=== PATIENT | female | born 1955 | race Two or more races ===

== ENCOUNTER 2024-09-09 19:17 | Inpatient (IN) | payer MEDICARE, BC, SELFPAY ==
[2024-09-09 19:18] VITALS: BMI 24.5
[2024-09-09 20:01] VITALS: BP 119/83; PULSE 110; RESP 18; TEMP 36.5; O2SAT 94
--- NOTE | 2024-09-09 20:22 | XR_ITS ---
Examination: PA lateral chest 2 views TECHNIQUE: Upright PA and lateral chest 2 views Standing time: September 09, 20242028 hours Comparison November 24, 2023 INDICATIONS: Coughing beginning 2 days ago. FINDINGS: Moderate enlargement cardiac contour Early heart failure Prominent vascular congestion with early septal edema at the lung bases No lobar pneumonia IMPRESSION: Early CHF
--- NOTE | 2024-09-09 20:22 | EKG_ITS ---
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
--- NOTE | 2024-09-09 20:23 | PD.EDRME ---
Rapid Medical Screening Exam E Arrival date/time: 09/09/24 19:17 This is a 69-year-old female that comes into the emergency room with complaints of shortness of breath, dizziness, chest pain for the past couple days. Patient states she became concerned because she also had a headache today that radiated down her neck. Patient was in bed most of the day but when she would try to get up out of bed she became very dizzy and felt like she was get a pass out. Patient has a history of end-stage renal disease on dialysis. Patient also has a history of high blood pressure and dyslipidemia. I have greeted and performed a focused initial assessment of this patient. Initial appropriate labs ordered at this time. A comprehensive ED assessment and evaluation of the patient and analysis of all test and completion of medical decision making process will be conducted by additional ED provider. Chief Complaint: Shortness of Breath/Dyspnea Time Seen by Provider: 09/09/24 20:08 Vital signs: Vital Signs Temperature 97.7 F 09/09/24 20:01 Pulse Rate 110 H 09/09/24 20:01 Respiratory Rate 18 09/09/24 20:01 Blood Pressure 119/83 09/09/24 20:01 Pulse Oximetry (%) 94 L 09/09/24 20:01 Oxygen Delivery Method Room Air 09/09/24 20:01
[2024-09-09 20:55] LABS: Basophils % (Auto) 1 % (0-2.5); Eosinophils # (Auto) 0.3 Thou/mm3 (0.0-0.5); Eosinophils % (Auto) 6 % (0-10); Hematocrit 31.8 % (36.0-46.0); Hemoglobin 10.2 g/dL (12.0-16.0); Immature Granulocytes % (Auto) 0 % (0-0); Immature Granulocytes Auto 0.01 Thou/mm3 (0.00-0.00); Lymphocytes # (Auto) 0.7 Thou/mm3 (1.0-4.8); Lymphocytes % (Auto) 16 % (10-50); Mean Corpuscular HGB Conc 32.1 g/dl (31.0-37.0); Mean Corpuscular Hemoglobin 33.1 pg (25.0-35.0); Mean Corpuscular Volume 103 fL (80-100); Monocytes # (Auto) 0.6 Thou/mm3 (0.0-0.8); Monocytes % (Auto) 15 % (0-12); Neutrophils # (Auto) 2.7 Thou/mm3 (1.8-7.7); Neutrophils % (Auto) 63 % (37-80); Nucleated Red Blood Cell % 0 /100 WBC (0); Platelet Count 97 Thou/mm3 (140-440); Red Blood Count 3.08 Miln/mm3 (4.00-5.20); White Blood Count 4.3 Thou/mm3 (3.6-11.0)
[2024-09-09 21:12] LABS: Alanine Aminotransferase 10 U/L (10-49); Albumin, Serum 4.4 gm/dL (3.4-4.8); Albumin/Globulin Ratio 1.5 (1.2-2.2); Alkaline Phosphatase 87 U/L (46-116); Anion Gap 14 (7-16); Aspartate Amino Transferase 29 U/L (0-34); BUN/Creatinine Ratio 6 Ratio (12-20); Bilirubin,Total 0.3 mg/dL (0.3-1.2); Blood Urea Nitrogen 52 mg/dL (9-23); Calcium 9.7 mg/dL (8.3-10.6); Calcium (Corrected) 9.7 mg/dL (8.5-10.1); Carbon Dioxide 27.1 mMol/L (20.0-31.0); Chloride 94 mMol/L (98-107); Creatinine (Component) 8.7 mg/dL (0.6-1.3); Estimated Creatinine Clearance 5.1 mL/min (>60); Globulin 2.9 gm/dL (2.3-3.5); Glucose 96 mg/dL (74-106); Osmolality,Calculated 284 (275-295); Potassium 4.9 mMol/L (3.4-5.1); Sodium 135 mMol/L (136-145); Total Protein 7.3 gm/dL (5.7-8.2); eGFR 4 See Note
[2024-09-09 21:16] LABS: B-Type Natriuretic Peptide 1286 pg/mL (0-100)
[2024-09-09 23:40] VITALS: BP 138/100; PULSE 124; RESP 22; O2SAT 86
--- NOTE | 2024-09-09 23:44 | EDNOTE_ITS ---
ED SOB =RME/HPI General Chief Complaint: Shortness of Breath/Dyspnea Stated Complaint: SOB, Pain to neck, dizziness Time Seen by Provider: 09/09/24 20:08 Source: patient and family Arrival date/time: 09/09/24 19:17 Mode of arrival: ambulatory Limitations: no limitations RME / HPI RME / HPI Narrative: 09/09/24 19:17 This is a 69-year-old female that comes into the emergency room with complaints of shortness of breath, dizziness, chest pain for the past couple days. Patient states she became concerned because she also had a headache today that radiated down her neck. Patient was in bed most of the day but when she would try to get up out of bed she became very dizzy and felt like she was get a pass out. Patient has a history of end-stage renal disease on dialysis. Patient also has a history of high blood pressure and dyslipidemia. I have greeted and performed a focused initial assessment of this patient. Initial appropriate labs ordered at this time. A comprehensive ED assessment and evaluation of the patient and analysis of all test and completion of medical decision making process will be conducted by additional ED provider. DR SCHWARTZ MAIN ED EVALUATION: The patient is a 70-year-old female with end-stage renal disease (ESRD) on hemodialysis (HD) who presents with complaints of congestion, which began on Tuesday. She reports experiencing a dry cough without phlegm, a burning sensation in both shoulders and the neck, and a sensation of pressure in her head. Additionally, she notes dizziness, particularly when standing, but denies any loss of consciousness (LOC). She denies fever or night sweats, but does report having chills. The patient sought medical care on Tuesday, at which time she was prescribed an allergy pill, nasal spray, and an inhaler. Her symptoms, including the congestion, cough, burning sensation, and dizziness, have persisted since that visit. She is followed by prospecting driller Dr. Leiva for her ESRD and by Dr. Herr for her regular care. She also has a pipe bowl paint trimmer, Dr. Chávez, for heart- related issues, though she does not specifically mention any recent cardiac sym ptoms. Related Data Home Medications ?Medication ?Instructions ?Recorded ?Confirmed calcium acetate 667 mg tablet 1,334 mg PO TIDWM 12/01/20 11/24/23 vitamin B complex-vitamin C-folic 1 tab PO QDAY 08/03/21 11/24/23 acid 0.8 mg tablet (Leonor-Shana) nicardipine 20 mg capsule 1 cap PO TID 04/09/22 11/24/23 hydralazine 50 mg tablet 1 tab PO TID 04/12/22 11/24/23 carvedilol 6.25 mg tablet (Coreg) 6.25 mg PO BID 08/01/23 11/24/23 Allergies Allergy/AdvReac Type Severity Reaction Status Date / Time hydrocodone [From Vicodin] Allergy Severe Hives Verified 07/31/23 15:25 Review of Systems Review of Systems Systems Reviewed: All systems reviewed, normal except as documented Past Medical History Past Medical History NEUROLOGIC: Negative Neurological Disorders, Cerebrovascular Accident, Transient Ischemic Attacks (TIA), Dementia, Alzheimer's Disease, Parkinson's Disease, Brain Tumor, Meningitis, Seizures, Epilepsy, Multiple Sclerosis, Cerebral Palsy, Amyotrophic Lateral Sclerosis (ALS/Arline Gehrig's), Guillain-Frederick Syndrome, Spina Bifida, Paralysis, Peripheral Neuropathy, Turner's Palsy, Subdural Hematoma, Migraine, Head Trauma, Spinal Cord Injury or Traumatic Brain Injury CARDIAC: Positive Cardiac Disorders, Hypercholesterolemia, Hypertension and Hypotension; Negative Myocardial Infarction, Cardiac Arrhythmia, Atrial Fibrillation, Angina, Heart Murmur, Coronary Artery Disease, Atherosclerotic Heart Disease, Peripheral Vascular Disease, Aneurysm, Congestive Heart Failure, Congenital Heart Disease, Valvular Heart Disease, Rheumatic Fever, Cardiomyopathy, Edema, Pericarditis, Cellulitis, Deep Vein Thrombosis or Varicose Veins RESPIRATORY: Negative Chronic Obstructive Pulmonary Disease (COPD), Asthma, Bronchitis, Emphysema, Pneumonia, Pulmonary Fibrosis, Cystic Fibrosis, Tuberculosis, Pulmonary Embolism, Pulmonary Edema or Sleep Apnea GASTROINTESTINAL: Negative Gastrointestinal Disorders, Cirrhosis, Pancreatitis, Celiac Disease, Gall Bladder Disease, Gastrointestinal Bleed, Esophageal Varices, Castelan's Esophagus, Colitis, Ulcerative Colitis, Diverticulitis, Diverticulosis, Ulcer, Irritable Bowel, Crohn's Disease, Obstructive Bowel, Hiat al Hernia, Hemorrhoids, Gastroesophageal Reflux Disease or Obesity GENITOURINARY: Positive Genitourinary Disorders, Renal Disease and Dialysis; Negative Kidney Stones, Polycystic Kidney Disease, Neurogenic Bladder, Inguinal Hernia or Benign Prostatic Hyperplasia REPRODUCTIVE: Positive Previous Pregnancies; Negative Endometriosis, Genital Herpes, Gonorrhea, Pelvic Inflammatory Disease, Syphilis or Uterine Prolapse MUSCULOSKELETAL: Positive Musculoskeletal Disorders and Gout; Negative Muscular Dystrophy, Myasthenia Gravis, Marfan's Syndrome, Arthritis, Rheumatoid Arthritis, Osteoporosis, Degenerative Disk Disease, Scoliosis, Carpal Tunnel Syndrome, Fibromyalgia, Fractures, Degenerative Joint Disease, Osteomyelitis or Poliovirus ENT: Negative Cataracts, Glaucoma, Blind, Retinal Detachment, Macular Degeneration, Ear Infection, Deafness, Head Trauma or Eye Prosthesis ENDOCRINE: Negative Endocrine Disorders, Diabetes Mellitus Type 1, Diabetes Mellitus Type 2, Hypoglycemia, [place]'s Syndrome, Shahid's Disease, Hyperthyroidism, Hypothyroidism, Parathyroid Disease, Pituitary Disease, Systemic Lupus Erythematosus, Syndrome of Inappropriate Antidiuretic Hormone (SIADH), Adrenal Disease or Graves' Disease HEMATOLOGIC: Positive Anemia; Negative Blood Disorders, Leukemia, Hemophilia, Thalassemia, Sickle Cell Disease or Clotting Problems PSYCHO/SOCIAL: Negative Psychiatric Problems, Schizophrenia, Recreational Drug Use, Bipolar Disorder, Depression, Anxiety, Behavior Problems, Self-Mutilation, Attention Deficit Disorder, Attention Deficit Hyperactivity Disorder, Depression, Post Traumatic Stress Disorder or Eating Disorder OTHER HISTORY: Positive Hospitalization and Blood Transfusions; Negative Autoimmune Disease, Autism, Falls, Blood Transfusion Reaction, Anesthesia Reactions, Organ Transplant or Cancer Family History FAMILY HISTORY: Positive Family Cardiac Disorders; Negative Family Psychiatric Problems, Family Respiratory Disorders, Family Gastrointestinal Problems, Family Cancer, Family Surgery or Family Anesthesia Reaction Surgical History SURGICAL: Positive Pacemaker, Eye Surgery and Section; Negative Cardiac Surgery, Open Heart Surgery, Coronary Artery Bypass Graft, Valve Replacement, Vascular Surgery, Coronary Stent, Cardiac Catheterization, Angiogram, Auto Implanted Cardiovert Defib, Carotid Endarterectomy, Endocrine Surgery, Thyroidectomy, Ear Surgery, Tympanostomy Tube, Nose Surgery, Oral Surgery, Tonsillectomy, Adenoidectomy, Cochlear Implant, Corneal Transplant, Throat Surgery, Abdominal Surgery, Tracheostomy, Gastric Bypass Surgery, Gastrostomy, Bowel Surgery, Nephrectomy, Transurethral Resection, Joint Replacement, Amputation, Open Reduction Internal Fixation, Arthroscopy, Neurologic Surgery, Brain Shunt, Mastectomy, Lumpectomy, Hysterectomy, Tubal Ligation or Organ Transplant Social History SMOKING STATUS: Never smoker SUBSTANCE USE: does not use ED Exam Narrative Physical exam: GENERAL APPEARANCE: alert and oriented x 4, well-developed, well-nourished, no acute distress VITALS: All vitals were reviewed and the pulse ox is 95% on 6 L/min, which is normal according to my interpretation. HEENT: Normocephalic, atraumatic; pupils equal, round, reactive to light; EOMI; mucous membranes pink, moist; oropharynx clear NECK: Supple LUNGS: CTABL; no wheezes, no rales, no rhonchi HEART: Irregularly irregular rate, tachycardic; normal S1, S2; no murmurs ABDOMEN: non distended; normal BS; soft, no tenderness, no guarding, no rebound; no masses, no organomegaly, no hernia BACK: no CVA tenderness EXTREMITIES: atraumatic; no edema NEUROLOGIC: awake; alert and oriented x4; cranial nerves II-XII grossly intact; no focal sensory or motor deficits PSYCHIATRIC: appropriate mood and affect SKIN: warm, dry, normal color; no rashes General Limitations: Present no limitations Course Course Course Narrative: CXR is ordered for determining etiology of shortness of breath. An EKG, personally interpreted by me, revealed atrial fibrillation with rapid ventricular response (RVR) at a heart rate of 143 bpm, Q waves in leads V1 and V2, and T wave inversions in leads II and III. Comparison with prior EKGs dated 04/09/2024 showed sinus bradycardia, while EKGs from 11/28/2023 and 11/24/2023 demonstrated sinus arrhythmia without evidence of atrial fibrillation. The findings suggest new-onset atrial fibrillation. At 0001, orthostatic vital signs obtained, the patient was observed sitting on the edge of the bed with an oxygen saturation of 83% and a heart rate in the 170s. Oxygen support was increased, and the patient was placed on high-flow oxygen. The patient was started on Cardizem, with a blood pressure of 159/100 mmHg. At 0057, Following administration, the heart rate decreased from the 170s to 97 bpm. A repeat EKG, personally interpreted by me, showed sinus tachycardia at a rate of 96 bpm, Q waves in leads V1 and V2, and mild ST depressions in leads II, III, and IV. The patient successfully converted with Cardizem. Quality Measures none Orders Category Date Time Status Bedside COVID-19 Antigen Test NOW Care 09/09/24 20:22 Active Bedside Influenza A&B Antigen Test NOW Care 09/09/24 20:22 Completed EKG (ED ONLY) *Do not use* NOW Care 09/09/24 20:22 Completed EKG (ED ONLY) *Do not use* NOW Care 09/10/24 00:19 Completed EKG (ED ONLY) *Do not use* NOW Care 09/10/24 00:43 Active Insert IV NOW Care 09/10/24 00:25 Active EKG (ED Only) Stat Exams 09/09/24 20:22 Draft EKG (ED Only) Stat Exams 09/10/24 00:18 Ordered EKG (ED Only) Stat Exams 09/10/24 00:43 Ordered XR chest 2V Stat Exams 09/09/24 20:22 Completed BNP [B-Type Natriuretic Peptide] Stat Lab 09/09/24 20:34 Completed CBC Stat Lab 09/09/24 20:34 Completed Comprehensive Metabolic Panel Stat Lab 09/09/24 20:34 Completed Troponin I Stat Lab 09/09/24 20:34 Completed Troponin I Stat Lab 09/10/24 00:37 Received Urinalysis, C/S if Indicated Stat Lab 09/09/24 20:23 Ordered DILTIAZEM in D5W 125 MG Med 09/10/24 00:25 Active 125 mg in 125 ml IV 5 mg/hr Diltiazem Inj [Cardizem Inj] Med 09/10/24 00:23 Discontinued 15 mg IV X1 ONE Vital Signs Vital signs: Vital Signs Temperature 97.7 F 09/09/24 20:01 Pulse Rate 110 H 09/09/24 20:01 Respiratory Rate 18 09/09/24 20:01 Blood Pressure 119/83 09/09/24 20:01 Pulse Oximetry (%) 94 L 09/09/24 20:01 Oxygen Delivery Method Room Air 09/09/24 20:01 Shortness of Breath / Dyspnea MDM Narrative MDM Narrative:: Scribe Attestation: Ailin Degroot am scribing for and in the presence of Dr. Schwartz. Provider Notation: Although this document has been carefully reviewed, there may still be some phonetic and other typographical errors. These errors are purely grammatical due to imperfections in the software program and should not be construed in any way to compromise the substance of the patient's medical care during this visit. Patient data External records reviewed:: [facility] previous records Clinical information provided by:: patient Social determinants that could affect healthcare access:: none Patient has the following chronic illnesses:: See PMH How is presenting disease/condition affected by chronic disease/condition?: uneffected by Evaluation data The following diagnostics were reviewed and interpreted by me:: lab results, radiology exam(s) and EKG tracing(s) Lab and/or radiology exams considered but not ordered:: none Interpretation Summary: I personally reviewed the radiology data and agree with the radiologist's interpretation. Examination: PA lateral chest 2 views TECHNIQUE: Upright PA and lateral chest 2 views Standing time: September 09, 20242028 hours Comparison November 24, 2023 INDICATIONS: Coughing beginning 2 days ago. FINDINGS: Moderate enlargement cardiac contour Early heart failure Prominent vascular congestion with early septal edema at the lung bases No lobar pneumonia IMPRESSION: Early CHF Dictated By: Billy Petersen MD Medications / Prescriptions Medications or Prescriptions considered but not ordered:: none Medication administrations:: Medication Administration History Diltiazem HCl (Diltiazem In D5w 125 Mg) 125 mg in 125 mls @ 5 mls/hr IV .Q24H OLEG Stop: 10/10/24 00:24 Discontinued Medications Diltiazem HCl (Diltiazem Inj 5 Mg/Ml Vial 5 Ml) 15 mg IV X1 ONE Stop: 09/10/24 00:24 Last Admin: 09/10/24 00:30 Dose: 15 mg Documented By: LB as above, if any Consultations Consultation(s) initiated? (list below): Yes Consultation #1 (Physician, Specialty, Details): Hospitalist made aware of the patient?s HPI, PMHx, lab and/or radiology results. Treatment plan was discussed. Accepts patient for admission. Time: 00:57 Diagnosis Shortness of Breath Differential Diagnosis: acute exacerbation of chronic obstructive airways disease, congestive heart failure, asthma with exacerbation and pulmonary embolism Most likely diagnosis given after review of the tests above:: Atrial fibrillation with RVR Admission Indicated Admission indicated?: indicated Admission Request Was there a request for admission?: Yes Admission Attestation Admission request attestation: Discussed case with [] from Hospitalist service regarding admission. Discussed patients ED course, exam findings, labs, and radiology results. The Hospitalist [agrees,declines] to accept the patient for admission. Disposition Plan Disposition Plan: Admit Critical Care Time Critical Care Time Critical Care Time: Yes Total Critical Care Time (min.): 35 Attestation: The high probability of sudden, clinically significant deterioration in the patient?s condition required the highest level of my preparedness to intervene urgently. ? The services I provided to this patient were to treat and/or prevent clinically significant deterioration. Services included the following: chart data review, reviewing nursing notes and/or old charts, documentation time, home sales consultant collaboration regarding findings and treatment options, medication orders and management, direct patient care, vital sign assessments and ordering, interpreting and reviewing diagnostic studies and lab tests. ? Aggregate critical care time includes only time during which I was engaged in work directly related to the patient?s care, as described above, whether at bedside or elsewhere in the Emergency Department. It did not include time spent performing other reported procedures or the services of residents, students, nurses or physician assistants. Discharge Plan Plan Patient Disposition: Admit Acute Care w/in Hospital Disposition Comment: Telemetry Prescriptions/Referrals Prescriptions/Med Rec: No Action Leonor-Shana 0.8 mg tablet 1 tab PO QDAY Patient Comments: TAKE 1 TABLET BY MOUTH DAILY calcium acetate 667 mg Tablet 1,334 mg PO TIDWM nicardipine 20 mg capsule 1 cap PO TID hydralazine 50 mg tablet 1 tab PO TID Patient Comments: TAKE 1 TABLET BY MOUTH THREE TIMES DAILY carvedilol [Coreg] 6.25 mg Tablet 6.25 mg PO BID Rx Instructions: must administer with a meal/food Referrals: Indy Herr MD [Primary Care Provider] - In 1 week Problem List Clinical Impression: Atrial fibrillation with RVR Patient/Caregiver Discharge Instructions Print Language: Kuwaiti Stand Alone Forms: [employer] Award Info., Patient Portal Info Letter
[2024-09-09 23:45] VITALS: O2SAT 94
[2024-09-10] VITALS (36 sets, daily range): BP systolic 112–173; BP diastolic 67–100; PULSE 85–133; RESP 16–24; TEMP 36.1–37; O2SAT 2–99; BMI 24.5
--- NOTE | 2024-09-10 00:09 | PC.NURSE ---
Dr. Schwartz in room seeing pt.
[2024-09-10] MEDS: DILTIAZEM INJ 5 MG/ML VIAL 5 ML 15 MG IV (00:30)
--- NOTE | 2024-09-10 00:55 | PC.NURSE ---
Cardizem gtt not available, nursg sup informed by Benny RN chg nurse.
--- NOTE | 2024-09-10 01:04 | PC.NURSE ---
HR 96, feels better, less SOB, and less chest discomfort per pt.
--- NOTE | 2024-09-10 01:33 | PC.NURSE ---
HBS in room seeing pt. Dtr at bedside.
--- NOTE | 2024-09-10 02:23 | ECHO_ITS ---
Transthoracic Echo Report Ht (in): 62 Wt (lb): 134 Exam Location: Echo Lab Status: Emergency Legislative Analyst: Ofe Fitzpatrick Indications: Procedure Performed: BP: 119 / 83 HR: MEASUREMENTS (Male / Female) Normal Values 2D ECHO LV Diastolic Diameter PLAX 5.1 cm 4.2 - 5.9 / 3.9 - 5.3 cm LV Systolic Diameter PLAX 3.3 cm IVS Diastolic Thickness 1.0 cm 0.6 - 1.0 / 0.6 - 0.9 cm LVPW Diastolic Thickness 1.1 cm 0.6 - 1.0 / 0.6 - 0.9 cm LV Relative Wall Thickness 0.4 LVOT Diameter 1.8 cm LA Volume Index 70.9 cm?/m? 16 - 28 cm?/m? M-MODE Aortic Root Diameter MM 2.3 cm LA Systolic Diameter MM 5.3 cm LA Ao Ratio MM 2.3 AV Cusp Separation MM 1.3 cm DOPPLER AV Peak Velocity 127.0 cm/s AV Peak Gradient 6.5 mmHg AV Mean Gradient 3.0 mmHg AV Velocity Time Integral 22.9 cm LVOT Peak Velocity 111.0 cm/s LVOT Peak Gradient 4.9 mmHg LVOT Velocity Time Integral 20.2 cm AV Area Cont Eq vti 2.2 cm? AV Area Cont Eq pk 2.2 cm? MV Peak Velocity 160.5 cm/s MV Peak Gradient 10.3 mmHg MV Mean Velocity 93.9 cm/s MV Mean Gradient 4.5 mmHg MV Area PHT 7.1 cm? MR Peak Velocity 595.5 cm/s MR Peak Gradient 141.8 mmHg Mitral E Point Velocity 127.0 cm/s Mitral A Point Velocity 78.1 cm/s Mitral E to A Ratio 1.6 LV E' Lateral Velocity 7.1 cm/s Mitral E to LV E' Lateral Ratio 18.0 LV E' Septal Velocity 7.6 cm/s Mitral E to LV E' Septal Ratio 16.7 TR Peak Velocity 301.0 cm/s TR Peak Gradient 36.2 mmHg PV Peak Velocity 70.6 cm/s PV Peak Gradient 2.0 mmHg FINDINGS Left Ventricle Normal left ventricular size and systolic function with no obvious regional wall motion abnormalities. Mild LVH. Normal left ventricular diastolic filling pattern for age. The ejection fraction is visually estimated at 65 %. Right Ventricle The right ventricle is normal in size and systolic function. The estimated right ventricular systolic pressure, 51 mmHg. RAP 15. Left Atrium The left atrial cavity size is severely increased. Right Atrium The right atrial cavity size is severely increased. Atrial Septum The interatrial septum appears normal with no evidence of a shunt. Aorta The aorta is normal by two-dimensional, color flow and Doppler interrogation. Mitral Valve Mild MAC. Severe mitral regurgitation. Mild MS. Aortic Valve The aortic valve is trileaflet and normal by two-dimensional, color flow and Doppler interrogation. There is no significant aortic valve regurgitation. Tricuspid Valve There is mild to moderate tricuspid valve regurgitation. Pulmonic Valve The pulmonic valve is not well visualized. There is no significant pulmonic valve regurgitation. Vessels Dilated inferior vena cava. Pericardium The pericardium is normal by two-dimensional imaging. There is no significant pericardial effusion. CONCLUSIONS Indication: New onset afib with RVR Normal LV size and function. Mild LVH. Estimated EF 60-65 %. Dilated RV with normal function. Estimated RVSP, 51 mmHg. RAP 15. Possible underestimated RVSP as TR appears severe and wide open Sever posterior MAC and Moderate anterior MAC. Mild MS iwth mean PG of 5 mm hg. Moderate to severe MR. Modertae AV sclerosis without stenosis. Lee Sahni (Electronically Signed) Final Date: 13 September 2024 08:23
--- NOTE | 2024-09-10 02:24 | ESHP_ITS ---
Documentation for date of: 09/10/24 HPI History of Present Illness Chief complaint: Dizziness, neck pain, SOB x 1 day History of present illness: Patient is a 69-year-old female with past medical history of ESRD on HD M/W/F, hypertension, hyperlipidemia, PAD who presented to the ED on 09/10/2024 with symptoms of dizziness onset upon getting up out of bed. Patient stated she felt pre-syncopal with lightheadedness but did not syncope or have any falls. She had associated headache today with neck tension. Patient also endorses upper respiratory symptoms for about 1 week with cough, chest congestion and states that family members in the house have been sick. Patient came to the ED and while awaiting evaluation went into afib with RvR at a rate of 140-170s. Patient was given push of IV diltiazem 15 mg x1 and converted to sinus rhythm in the 90s, subsequently placed on diltiazem drip. Patient denies any known prior history of afib. Denies history of heart failure. Patient reports that a few days back her medications were changed and she started metoprolol 2 days ago. Since then she notes feeling dizziness. She follows with cardiology Dr. Chávez, 1 month ago had echo done and stated she was told she had mild valve leakage but otherwise looked normal. Patient underwent her normal dialysis sessions last week but on Tuesday left about 1 hour early to attend her appointment. Patient makes a small amount of urine still and takes Lasix twice daily. ED Course: -Initial vitals were BP 119/83, HR 110, RR 18, Temp 97.7, O2 94% on room air -Labs significant for chronic macrocytic anemia, BUN 52, creatinine 8.7, BNP 1286 improved from prior -EKG in ED showed afib with RvR rate of 143. Prior EKGs show sinus arrhythmias but no afib with RvR -CXR showed mild vascular congestion -In the ED, patient was given diltiazem 15 mg IV x1 and converted to NSR at a rate of 90s. Started on diltiazem drip. -Patient was admitted for new onset afib Review of Systems Review of systems otherwise negative except what is mentioned above. Past Medical History Past Medical History Comments PMH COMMENT: Past Medical History: ESRD on HD M/W/F, hypertension, hyperlipidemia, PAD Family History: Positive for cardiac disorders and MA Surgical History: Bilateral rotator cuff surgery, left side head tumor(?) removal, right eye surgery, vascular surgery right lower extremity Social History: Denies history of smoking, former daily alcohol use quit about 7 months ago, denies recreational drug use Current Medications: Metoprolol, furosemide, nicardipine, Leonor-Shana (Source: Patient) Allergies: Hydrocodone Exam Vital Signs Temp Pulse Resp BP Pulse Ox O2 Del Method O2 Flow Rate 97.7 F 96 24 H 133/86 H 98 Nasal Cannula 6 09/09/24 20:01 09/10/24 01:03 09/10/24 01:03 09/10/24 01:03 09/10/24 01:03 09/10/24 01:03 09/10/24 01:03 Narrative Exam Physical Exam General: Awake and in no acute distress. Conversational and non-toxic appearing. HEENT: Normocephalic, atraumatic, mucous membranes moist. Patient on 6L O2 via NC. Heart: Irregularly irregular rate and rhythm, no murmurs. Lungs: Bilateral crackles throughout all lung stephens. Abdomen: Soft, nondistended, nontender, positive bowel sounds. ?No guarding or rebound tenderness. Neurologic: Alert and oriented x3, no gross neurological deficit, and patient able to move all 4 extremities. Extremities: 1+ bilateral peripheral edema. Skin: No rash or ecchymoses. Results: Labs 09/10/24 04:54 09/10/24 04:54 Labs: Short CBC 09/09/24 Range/Units 20:34 WBC 4.3 (3.6-11.0) Thou/mm3 Hgb 10.2 L (12.0-16.0) g/dL Hct 31.8 L (36.0-46.0) % Plt Count 97 L (140-440) Thou/mm3 BMP 09/09/24 20:34 Sodium 135 L Potassium 4.9 Chloride 94 L Carbon Dioxide 27.1 BUN 52 H Creatinine 8.7 H* Glucose 96 Calcium 9.7 Cardiac Enzymes 09/09/24 09/10/24 Range/Units 20:34 00:37 Troponin I 0.020 0.020 (0.0-0.045) ng/mL Liver Function 09/09/24 Range/Units 20:34 Total Bilirubin 0.3 (0.3-1.2) mg/dL AST 29 (0-34) U/L ALT 10 (10-49) U/L Alkaline Phosphatase 87 (46-116) U/L Albumin 4.4 (3.4-4.8) gm/dL Quality Measures Quality Measures none Advance care planning discussed with:: patient and child Medications Home Medications and Allergies Home Medications ?Medication ?Instructions ?Recorded ?Confirmed ?Type calcium acetate 667 mg tablet 1,334 mg PO TIDWM 12/01/20 11/24/23 History vitamin B complex-vitamin C-folic 1 tab PO QDAY 08/03/21 11/24/23 History acid 0.8 mg tablet (Leonor-Shana) nicardipine 20 mg capsule 1 cap PO TID 04/09/22 11/24/23 History hydralazine 50 mg tablet 1 tab PO TID 04/12/22 11/24/23 History carvedilol 6.25 mg tablet (Coreg) 6.25 mg PO BID 08/01/23 11/24/23 History Allergies Allergy/AdvReac Type Severity Reaction Status Date / Time hydrocodone [From Vicodin] Allergy Severe Hives Verified 07/31/23 15:25 Visit Medications Acetaminophen (Acetaminophen 325 Mg Tablet) 650 mg PO Q6H PRN PRN Reason: Fever >100.4 or Pain 1-10 Stop: 10/10/24 02:15 Heparin Sodium (Porcine) (Heparin Sod Inj 5000 Unit/Ml Vial) 5,000 unit SC Q8HR [facility] Stop: 09/24/24 05:59 Diltiazem HCl (Diltiazem In D5w 125 Mg) 125 mg in 125 mls @ 5 mls/hr IV .Q24H OLEG Stop: 10/10/24 00:24 Last Admin: 09/10/24 00:40 Dose: Not Given Ipratropium [place] (Ipratropium Rt 0.5 Mg/ 2.5 Ml Nebu) mg INH Q6HRRT PRN PRN Reason: Shortness of breath or wheezing Stop: 10/10/24 06:59 Levalbuterol HCl (Levalbuterol Rt 0.63 Mg/3 Ml Nebu) 0.63 mg INH Q6HRRT PRN PRN Reason: Shortness of breath or wheezing Stop: 10/10/24 06:59 Ondansetron HCl (Ondansetron Inj 2 Mg/Ml Inj 2 Ml) 4 mg IV Q6H PRN; Protocol PRN Reason: NAUSEA OR VOMITING Stop: 10/10/24 02:15 Discontinued Medications Diltiazem HCl (Diltiazem Inj 5 Mg/Ml Vial 5 Ml) 15 mg IV X1 ONE Stop: 09/10/24 00:24 Last Admin: 09/10/24 00:30 Dose: 15 mg Assessment & Plan Plan 69-year-old female with past medical history of ESRD on HD M/W/, hypertension, hyperlipidemia, PAD who presented to the ED on 09/10/2024 with symptoms of dizziness worsened with positional changes after recent medication change. Patient developed new onset afib with RvR while in ED and was admitted for further management. #New onset paroxysmal afib with RvR Patient came to ED with complaints of dizziness, found to develop afib with RvR while awaiting evaluation. EKG shows RvR at rate 143, no prior EKGs with afib. Prior EKGs have sinus arrhythmia. Patient was given diltiazem 15 mg IV push and started on dilt drip. Converted to sinus rhythm and EKG taken. CHADS-VASc is 3 points, anticoagulation may be recommended -Patient [employer] Dr. Chávez consulted, appreciate recommendations -Continue diltiazem drip #Acute hypoxic respiratory failure, secondary to fluid overload #ESRD on HD M// Likely secondary to fluid overload in the setting of new onset afib and ESRD. Patient has URI symptoms but no evidence of pneumonia on CXR. Bilateral crackles present on exam likely secondary to afib episode combined with dialysis session that is due. Patient states she ended dialysis about 1 hr early on Tuesday. Last echo per patient normal. -Continue with dialysis this AM, Nephro Dr. Leiva consulted -Echo ordered -Supplemental O2 to maintain SpO2 >93%, wean as tolerated #Dizziness Orthostatic hypotension versus migraine versus cardiac etiology such as afib versus secondary to upper respiratory infection. -Orthostatic vitals -Hold home metoprolol -Echo pending #Upper respiratory infection Per patient multiple sick household members. COVID, flu negative on admission. CXR appears clear, pt not septic. -Nebulizers ipratropium/levalbuterol as needed -Benzonatate as needed for cough #History of hypertension -Held home BP meds due to above symptoms, on diltiazem drip DVT prophylaxis: Heparin 5,000 U subQ GI prophylaxis: None Diet: Renal Whit[place]: None Lines: Peripheral IV Antibiotics: None CODE STATUS: FULL Reason for hospitalization: New onset afib with RvR Patient plan of care was discussed with the attending physician, Dr. Reddy. Haylee Boogie, PGY-2 Attending Provider Attestation/Addendum 69-year-old female with end-stage renal disease on hemodialysis, history of MSSA endocarditis, patent foramen ovale, hypertension, hyperlipidemia was admitted near syncopal event. Patient was found to have atrial fibrillation. Also complains of cough colds, malaise. She is short of breath at rest appears fluid overloaded. She only had 2 hours of HD last Tuesday. Will need urgent HD. Patient is currently on diltiazem drip. Pending cardiology consultation. Notified Dr. Leiva.
[2024-09-10] MEDS: DILTIAZEM in D5W 125 MG 125 MG/125 ML BAG IV (02:46)
[2024-09-10] MEDS: ACETAMINOPHEN 325 MG TABLET 650 MG PO (03:03)
[2024-09-10 05:39] LABS: Basophils # (Auto) 0.1 Thou/mm3 (0.0-0.2); Basophils % (Auto) 1 % (0-2.5); Eosinophils # (Auto) 0.1 Thou/mm3 (0.0-0.5); Eosinophils % (Auto) 2 % (0-10); Hematocrit 33.2 % (36.0-46.0); Hemoglobin 10.5 g/dL (12.0-16.0); Immature Granulocytes % (Auto) 0 % (0-0); Immature Granulocytes Auto 0.01 Thou/mm3 (0.00-0.00); Lymphocytes # (Auto) 0.8 Thou/mm3 (1.0-4.8); Lymphocytes % (Auto) 19 % (10-50); Mean Corpuscular HGB Conc 31.6 g/dl (31.0-37.0); Mean Corpuscular Hemoglobin 32.9 pg (25.0-35.0); Mean Corpuscular Volume 104 fL (80-100); Monocytes # (Auto) 0.6 Thou/mm3 (0.0-0.8); Monocytes % (Auto) 14 % (0-12); Neutrophils # (Auto) 2.7 Thou/mm3 (1.8-7.7); Neutrophils % (Auto) 63 % (37-80); Nucleated Red Blood Cell % 0 /100 WBC (0); Platelet Count 99 Thou/mm3 (140-440); RDW Standard Deviation 53.8 fL (36.4-46.3); Red Blood Count 3.19 Miln/mm3 (4.00-5.20); White Blood Count 4.3 Thou/mm3 (3.6-11.0)
[2024-09-10 06:01] LABS: Albumin, Serum 4.8 gm/dL (3.4-4.8); Anion Gap 16 (7-16); BUN/Creatinine Ratio 6 Ratio (12-20); Blood Urea Nitrogen 52 mg/dL (9-23); Calcium 9.5 mg/dL (8.3-10.6); Calcium (Corrected) 9.5 mg/dL (8.5-10.1); Carbon Dioxide 24.6 mMol/L (20.0-31.0); Chloride 95 mMol/L (98-107); Glucose 89 mg/dL (74-106); Osmolality,Calculated 284 (275-295); Potassium 5.4 mMol/L (3.4-5.1); Sodium 136 mMol/L (136-145); eGFR 4 See Note
[2024-09-10 06:07] LABS: Creatinine (Component) 8.8 mg/dL (0.6-1.3); Phosphorous 9.6 mg/dL (2.4-5.1)
[2024-09-10] MEDS: HEPARIN SOD INJ 5000 UNIT/ML VIAL SC ×2 (06:14→21:42)
[2024-09-10 07:09] LABS: Glucose Estimated Average 94 mg/dL (80-131); Hemoglobin A1C 4.9 % Hgb (4.8-6.0)
--- NOTE | 2024-09-10 08:27 | ESPR_ITS ---
Documentation for date of: 09/10/24 Subjective Subjective Interval history: No acute overnight events. Patient was in dialysis during the visit. Complaining of chronic bilateral shoulder pain, musculoskeletal in nature, worsened with neck movement. Denies fever, chills, headaches, chest pain, sob, cough, GI or urinary symptoms. Exam Vital Signs Temp Pulse Resp BP Pulse Ox O2 Del Method O2 Flow Rate 97.1 F 102 H 18 165/98 H 96 Nasal Cannula 2 09/10/24 07:44 09/10/24 08:15 09/10/24 07:44 09/10/24 08:15 09/10/24 07:44 09/10/24 06:00 09/10/24 07:44 Narrative Exam GENERAL * Normal-appearing elderly female in no apparent distress. HEENT * NCAT.?HAJA. Oral mucosa is moist. Patent Nares NECK * Supple, nontender, no thyromegaly, no meningismus, no JVD, no step offs CHEST * Tachycardic, regular irregular rhythm, no m/g/r * CTAB, no w/r/r. Symmetrical chest rise. No intercostal subcostal retraction * Atraumatic, nontender, no crepitus, symmetrical expansion. ABDOMEN * Soft, flat, nontender. No guarding/rebound tenderness/masses. * Bowel sounds presents EXTREMITIES * Nontender, no cyanosis, no edema * No edema/cyanosis.? SKIN * Warm and dry, no jaundice/rashes. NEUROMUSCULAR * No lumbar or midline, no CVA, no paraspinal muscle spasm or tenderness. * YOUNG x4, CN II-XII grossly intact. * No focal neurologic deficits. PSYCHIATRY * Normal mood and affect, cooperative, no SI or HI or hallucinations. Objective Labs 09/11/24 05:06 09/11/24 05:06 Labs: Laboratory Results - last 24 hr 09/09/24 09/10/24 09/10/24 20:34 00:37 04:54 WBC 4.3 4.3 RBC 3.08 L 3.19 L Hgb 10.2 L 10.5 L Hct 31.8 L 33.2 L MCV 103 H 104 H MCH 33.1 32.9 MCHC 32.1 31.6 RDW Std Deviation 53.0 H 53.8 H Plt Count 97 L 99 L Neut % (Auto) 63 63 Lymph % (Auto) 16 19 [place] % (Auto) 15 H 14 H Eos % (Auto) 6 2 Baso % (Auto) 1 1 Neut # (Auto) 2.7 2.7 Lymph # (Auto) 0.7 L 0.8 L [place] # (Auto) 0.6 0.6 Eos # (Auto) 0.3 0.1 Baso # (Auto) 0.0 0.1 Immature Gran # (Auto) 0.01 H 0.01 H Absolute Nucleated RBC 0.00 0.00 Immature Gran % 0 0 Nucleated RBC % 0 0 Sodium 135 L 136 Potassium 4.9 5.4 H D Chloride 94 L 95 L Carbon Dioxide 27.1 24.6 Anion Gap 14 16 BUN 52 H 52 H Creatinine 8.7 H* 8.8 H* Estim Creat Clear Calc 5.1 L 5.0 L eGFR 4 L* 4 L* BUN/Creatinine Ratio 6 L 6 L Glucose [address] Glu mg/dL 94 Hemoglobin A1c 4.9 Calculated Osmolality 284 284 Calcium 9.7 9.5 Corrected Calcium 9.7 9.5 Phosphorus 9.6 H Total Bilirubin 0.3 AST 29 ALT 10 Alkaline Phosphatase 87 Troponin I 0.020 0.020 B-Natriuretic Peptide 1286 H* Total Protein 7.3 Albumin 4.4 4.8 Globulin 2.9 Albumin/Globulin Ratio 1.5 Quality Measures Quality Measures none Advance care planning discussed with:: patient Assessment & Plan Assessment Current Active Medications: Generic Name Dose Route Start Last Admin Trade Name Freq PRN Reason Stop Dose Admin Acetaminophen 650 mg 09/10/24 02:16 09/10/24 03:03 Acetaminophen 325 Mg Tablet PO 10/10/24 02:15 650 mg Q6H PRN Administration Fever >100.4 or Pain 1-10 Benzonatate 100 mg 09/10/24 02:23 Benzonatate 100 Mg Capsule PO 10/10/24 02:22 Q8HR PRN COUGH Protocol Heparin Sodium (Porcine) 5,000 unit 09/10/24 06:00 09/10/24 06:14 Heparin Sod Inj 5000 Unit/Ml Vial SC 09/24/24 05:59 5,000 unit Q8HR OLEG Administration Diltiazem HCl 125 mg in 125 mls @ 5 mls/hr 09/10/24 00:25 09/10/24 02:46 Diltiazem In D5w 125 Mg IV 10/10/24 00:24 5 mg/hr .Q24H OLEG 5 mls/hr Administration 5 MG/HR Ipratropium [place] 0.5 mg 09/10/24 02:16 Ipratropium Rt 0.5 Mg/ 2.5 Ml Nebu INH 10/10/24 06:59 Q6HRRT PRN Shortness of breath or wheezing Levalbuterol HCl 0.63 mg 09/10/24 02:16 Levalbuterol Rt 0.63 Mg/3 Ml Nebu INH 10/10/24 06:59 Q6HRRT PRN Shortness of breath or wheezing Ondansetron HCl 4 mg 09/10/24 02:16 Ondansetron Inj 2 Mg/Ml Inj 2 Ml IV 10/10/24 02:15 Q6H PRN NAUSEA OR VOMITING Protocol Plan 69-year-old female with past medical history of ESRD on HD M//, hypertension, hyperlipidemia, PAD who presented to the ED on 09/10/2024 with symptoms of dizziness worsened with positional changes after recent medication change. Patient developed new onset afib with RvR while in ED and was admitted for further management. Presyncope New onset paroxysmal afib with RvR HTN Most likely cardiac arrhythmia versus less likely metabolic derangement 2/2 ESRD. Presenting with dizziness, no following loss of consciousness, reports recurrent palpitation in her chest. In ED found to have new A-fib with RVR with HR 143 on EKG with no acute ST changes. Denies chest pain or shortness of breath. Continued on DILTIAZEM drip. HR 100s, BP 170/90 after HD. CHADS-VASc is 3 points, anticoagulation may be recommended. Orthostatic vital negative. No focal neurological deficits, speech abnormalities or facial asymmetry. ? Continue DILTIAZEM drip ? Continue home CARVEDILOL 6.25 mg BID ? Pending echocardiogram ? Pending cardiology recommendations Acute hypoxic respiratory failure, secondary to fluid overload ESRD on HD /W/ Likely secondary to fluid overload in the setting of new onset afib and ESRD. Patient has URI symptoms but no evidence of pneumonia on CXR. Bilateral crackles present on exam likely secondary to afib episode combined with dialysis session that is due. Patient states she ended dialysis about 1 hr early on Tuesday. Last echo per patient normal. ? Hemodialysis with nephrology, MWF ? Oxygen PRN Upper respiratory infection Per patient multiple sick household members. COVID, flu negative on admission. CXR appears clear, pt not septic. ? Nebulizers ipratropium/levalbuterol as needed ? Benzonatate as needed for cough Cervical radiculopathy pain Complains of chronic bilateral shoulder pain which followed a fall that occurred [address] cervical spine showed degenerative disc changes. No loss sensation or weakness in all extremities. ? Recommended outpatient follow-up. ? LIDOCAINE patches for pain Health maintenance Diet: Cardiac GI prophylaxis: Not indicated DVT prophylaxis: HEPARIN Antibiotics: Not indicated CODE STATUS: Full code Disposition: Cardiology recommendations for A-fib. Patient case was discussed with attending, [] and senior residents Dr. Donahue and Dr. Fernández. Gregoria Oneil, DO Attending Provider Attestation/Addendum I reviewed labs, imaging, EKG, home medications and prior available records. Face to face evaluation was performed by me. I have personally examined the patient and discussed assessment and plan with the IM team. I reviewed the resident note and agree with the plan with exceptions as below. A-fib with RVR: Started diltiazem drip. Consulted cardiology. Ordered echocardiogram ESRD on hemodialysis: Started hemodialysis
--- NOTE | 2024-09-10 08:42 | PC.NURSE ---
Patient left for dialysis at approximately 0730
--- NOTE | 2024-09-10 09:20 | PC.NURSE ---
pt w/ complaints of cramping to legs pt refuses need to turn uf off, uf goal lowered to 2.6l as tolerated will monitor
--- NOTE | 2024-09-10 10:05 | PD.NEPHCONS ---
History of Present Illness Data of Consult Consult date: 09/10/24 Requesting Physician: Hussain Milligan MD Primary Care Provider: Indy Herr MD Consult Narrative Reason for consult: ESRD, fluid overload History of present illness: Ms. 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 She cut short her dialysis session on Tuesday went and saw her primary care physician who gave her Claritin and cough syrup. Over the weekend she started having more worsening shortness of breath orthopnea, wheezing and cough that she presented to the emergency department and noted to be in hypoxic respiratory failure. Patient gets only 2 hours of dialysis session on Tuesday and unable to remove fluid. I have been explained to her that she needs to be compliant with fluids and also needs to come to the dialysis unit 3 times a week to complete her sessions. In the dialysis unit she is overweight 2 L. Makes very little urine as she is on dialysis for 3 years. Did have chills and low-grade fever. She denied any headache. Also had presyncopal episodes, dizziness, lightheadedness. In the ED--WBC 4.3, hemoglobin 10.2, platelets 97. Sodium 135, potassium 5.4, BUN 52, creatinine 8.8, phosphorus 9.6, LFTs normal, BNP 1286, troponin 0.02, albumin 4.8 chest x-ray showed CHF EKG showed A-fib with RVR. Patient was given IV diltiazem, oxygen was given along with breathing treatments and renal consultation requested for need for emergency dialysis. Patient currently seen on dialysis. The patient was admitted to telemetry for management of congestive heart failure, possible pneumonia//bronchitis Home medications: Calcium acetate 1334 mg p.o. 3 times daily WM, carvedilol 6.25 Mg p.o. twice daily, hydralazine- 50 Mg 1 tablet p.o. 3 times daily, nicardipine 20 Mg 1 cap p.o. 3 times daily, Leonor-Shana 1 tab p.o. daily. cc:: cc: Hussain Milligan MD Review of Systems Review of Systems Narrative Review of Systems: CONSTITUTIONAL: Patient complaining of fatigue, chills HEENT: Denies any visual disturbances or hearing problems. CARDIOVASCULAR: Patient denies any chest pain, admits shortness of breath, swelling in the lower extremities. PULMONARY: Patient complaining of shortness of breath, cough. GASTROINTESTINAL: Patient denies any abdominal pain, constipation, nausea, vomiting, diarrhea. GENITOURINARY: Patient denies any urinary symptoms of burning or frequency or hematuria, denies any form in the urine. Decreased urination SKIN: Denies any rash. MUSCULOSKELETAL: Denies any muscular skeletal problems of joint pains. NEUROLOGICAL: Denies any neurological problems of strokes, seizures or confusion. Denies any memory problems. Past Medical History Past Medical History NEUROLOGIC: Negative Neurological Disorders, Cerebrovascular Accident, Transient Ischemic Attacks (TIA), Dementia, Alzheimer's Disease, Parkinson's Disease, Brain Tumor, Meningitis, Seizures, Epilepsy, Multiple Sclerosis, Cerebral Palsy, Amyotrophic Lateral Sclerosis (ALS/Arline Gehrig's), Guillain-P[place] Syndrome, Spina Bifida, Paralysis, Peripheral Neuropathy, Turner's Palsy, Subdural Hematoma, Migraine, Head Trauma, Spinal Cord Injury or Traumatic Brain Injury CARDIAC: Positive Cardiac Disorders, Hypercholesterolemia, Hypertension and Hypotension; Negative Myocardial Infarction, Cardiac Arrhythmia, Atrial Fibrillation, Angina, Heart Murmur, Coronary Artery Disease, Atherosclerotic Heart Disease, Peripheral Vascular Disease, Aneurysm, Congestive Heart Failure, Congenital Heart Disease, Valvular Heart Disease, Rheumatic Fever, Cardiomyopathy, Edema, Pericarditis, Cellulitis, Deep Vein Thrombosis or Varicose Veins RESPIRATORY: Negative Chronic Obstructive Pulmonary Disease (COPD), Asthma, Bronchitis, Emphysema, Pneumonia, Pulmonary Fibrosis, Cystic Fibrosis, Tuberculosis, Pulmonary Embolism, Pulmonary Edema or Sleep Apnea GASTROINTESTINAL: Negative Gastrointestinal Disorders, Cirrhosis, Pancreatitis, Celiac Disease, Gall Bladder Disease, Gastrointestinal Bleed, Esophageal Varices, Castelan's Esophagus, Colitis, Ulcerative Colitis, Diverticulitis, Diverticulosis, Ulcer, Irritable Bowel, Crohn's Disease, Obstructive Bowel, Hiatal Hernia, Hemorrhoids, Gastroesophageal Reflux Disease or Obesity GENITOURINARY: Positive Genitourinary Disorders, Renal Disease and Dialysis; Negative Kidney Stones, Polycystic Kidney Disease, Neurogenic Bladder, Inguinal Hernia or Benign Prostatic Hyperplasia REPRODUCTIVE: Positive Previous Pregnancies; Negative Endometriosis, Genital Herpes, Gonorrhea, Pelvic Inflammatory Disease, Syphilis or Uterine Prolapse MUSCULOSKELETAL: Positive Musculoskeletal Disorders and Gout; Negative Muscular Dystrophy, Myasthenia Gravis, Marfan's Syndrome, Arthritis, Rheumatoid Arthritis, Osteoporosis, Degenerative Disk Disease, Scoliosis, Carpal Tunnel Syndrome, Fibromyalgia, Fractures, Degenerative Joint Disease, Osteomyelitis or Poliovirus ENT: Negative Cataracts, Glaucoma, Blind, Retinal Detachment, Macular Degeneration, Ear Infection, Deafness, Head Trauma or Eye Prosthesis ENDOCRINE: Negative Endocrine Disorders, Diabetes Mellitus Type 1, Diabetes Mellitus Type 2, Hypoglycemia, [place]'s Syndrome, Blair's Disease, Hyperthyroidism, Hypothyroidism, Parathyroid Disease, Pituitary Disease, Systemic Lupus Erythematosus, Syndrome of Inappropriate Antidiuretic Hormone (SIADH), Adrenal Disease or Graves' Disease HEMATOLOGIC: Positive Anemia; Negative Blood Disorders, Leukemia, Hemophilia, Thalassemia, Sickle Cell Disease or Clotting Problems PSYCHO/SOCIAL: Negative Psychiatric Problems, Schizophrenia, Recreational Drug Use, Bipolar Disorder, Depression, Anxiety, Behavior Problems, Self-Mutilation, Attention Deficit Disorder, Attention Deficit Hyperactivity Disorder, Depression, Post Traumatic Stress Disorder or Eating Disorder OTHER HISTORY: Positive Hospitalization and Blood Transfusions; Negative Autoimmune Disease, Autism, Falls, Blood Transfusion Reaction, Anesthesia Reactions, Organ Transplant or Cancer Family History FAMILY HISTORY: Positive Family Cardiac Disorders; Negative Family Psychiatric Problems, Family Respiratory Disorders, Family Gastrointestinal Problems, Family Cancer, Family Surgery or Family Anesthesia Reaction Surgical History SURGICAL: Positive Pacemaker, Eye Surgery and Section; Negative Cardiac Surgery, Open Heart Surgery, Coronary Artery Bypass Graft, Valve Replacement, Vascular Surgery, Coronary Stent, Cardiac Catheterization, Angiogram, Auto Implanted Cardiovert Defib, Carotid Endarterectomy, Endocrine Surgery, Thyroidectomy, Ear Surgery, Tympanostomy Tube, Nose Surgery, Oral Surgery, Tonsillectomy, Adenoidectomy, Cochlear Implant, Corneal Transplant, Throat Surgery, Abdominal Surgery, Tracheostomy, Gastric Bypass Surgery, Gastrostomy, Bowel Surgery, Nephrectomy, Transurethral Resection, Joint Replacement, Amputation, Open Reduction Internal Fixation, Arthroscopy, Neurologic Surgery, Brain Shunt, Mastectomy, Lumpectomy, Hysterectomy, Tubal Ligation or Organ Transplant Social History SMOKING STATUS: Never smoker SUBSTANCE USE: does not use Past Medical History Comments PMH COMMENT: Past Medical History: ESRD on HD M/W/F, hypertension, hyperlipidemia, PAD Family History: Positive for cardiac disorders and [place] Surgical History: Bilateral rotator cuff surgery, left side head tumor(?) removal, right eye surgery, vascular surgery right lower extremity Social History: Denies history of smoking, former daily alcohol use quit about 7 months ago, denies recreational drug use Current Medications: Metoprolol, furosemide, nicardipine, Leonor-Shana (Source: Patient) Allergies: Hydrocodone Meds Home Medications and Allergies Home Medications ?Medication ?Instructions ?Recorded ?Confirmed ?Type calcium acetate 667 mg tablet 1,334 mg PO TIDWM 12/01/20 11/24/23 History vitamin B complex-vitamin C-folic 1 tab PO QDAY 08/03/21 11/24/23 History acid 0.8 mg tablet (Leonor-Shana) nicardipine 20 mg capsule 1 cap PO TID 04/09/22 11/24/23 History hydralazine 50 mg tablet 1 tab PO TID 04/12/22 11/24/23 History carvedilol 6.25 mg tablet (Coreg) 6.25 mg PO BID 08/01/23 11/24/23 History Allergies Allergy/AdvReac Type Severity Reaction Status Date / Time hydrocodone [From Vicodin] Allergy Severe Hives Verified 07/31/23 15:25 Exam Vital Signs Temp Pulse Resp BP Pulse Ox O2 Del Method O2 Flow Rate 36.2 C 100 18 161/93 H 96 Nasal Cannula 2 09/10/24 07:44 09/10/24 10:00 09/10/24 07:44 09/10/24 10:00 09/10/24 07:44 09/10/24 06:00 09/10/24 07:44 Narrative Exam General: AAO. Currently seen on dialysis.++ Short of breath HEENT: EOMI grossly intact. MMM. Periorbital edema noted Neck: Trachea is midline. Chest: Symmetric chest expansion. Cardiac: RRR. Normal S1 and S2. 2+ edema in the lower extremities Resp: Crackles diffusely at bases. No increased work of breathing. Abd: Soft, nontender, nondistended. Extrem: Atraumatic in appearance without deformity. Skin: Warm, dry ++ AV fistula cannulated Neuro: AAO. Moves all 4. No deficit of speech. CNII-XII grossly intact. Results Labs 09/10/24 04:54 09/10/24 04:54 Labs: Short CBC 09/09/24 09/10/24 Range/Units 20:34 04:54 WBC 4.3 4.3 (3.6-11.0) Thou/mm3 Hgb 10.2 L 10.5 L (12.0-16.0) g/dL Hct 31.8 L 33.2 L (36.0-46.0) % Plt Count 97 L 99 L (140-440) Thou/mm3 BMP 09/09/24 09/10/24 20:34 04:54 Sodium 135 L 136 Potassium 4.9 5.4 H D Chloride 94 L 95 L Carbon Dioxide 27.1 24.6 BUN 52 H 52 H Creatinine 8.7 H* 8.8 H* Glucose 96 89 Calcium 9.7 9.5 Cardiac Enzymes 09/09/24 09/10/24 Range/Units 20:34 00:37 Troponin I 0.020 0.020 (0.0-0.045) ng/mL Liver Function 09/09/24 09/10/24 Range/Units 20:34 04:54 Total Bilirubin 0.3 (0.3-1.2) mg/dL AST 29 (0-34) U/L ALT 10 (10-49) U/L Alkaline Phosphatase 87 (46-116) U/L Albumin 4.4 4.8 (3.4-4.8) gm/dL Assessment & Plan Additional Assessment & Plan Additional Plan: Ms. 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 Patient currently seen on dialysis. Tolerating dialysis without any problems. Hemodialysis for 3 hours, 2K, ultrafiltration 2-3 L, Epogen 6000, no heparin ordered. Plan of care discussed with the dialysis nurse. Please see dialysis flowsheet for further details. Might need extra session tomorrow if still short of breath. - Obtain daily renal panel - Renally dose medications - Restrict fluid intake - Strictly monitor and document I/O's - Will initiate sevelamer 800mg TID with meals #A.fib-sees Dr. Heard in the outpatient setting #Macrocytic anemia Presumed component of anemia secondary to chronic inflammatory condition/CKD. # Thrombocytopenia-seems to be chronic #Acute hypoxic respiratory failure secondary to CAP versus acutely decompensated heart failure Continue with antibiotics, dialysis #Community acquired pneumonia #Acutely decompensated heart failure versus pulmonary edema secondary to fluid noncompliant #Hypertension #Hyperlipidemia Thank you Hussain for allowing me to participate in the care of Ms. Arroyo
--- NOTE | 2024-09-10 10:17 | PC.NURSE ---
pt tolerating tx, uf goal to 2.8l as tolerated will cont. to monitor
[2024-09-10] MEDS: MELATONIN 3 MG TABLET PO (14:21)
[2024-09-10] MEDS: carVEDILOL 3.125 MG TABLET 6.25 MG PO (15:21)
--- NOTE | 2024-09-10 17:05 | PC.CC ---
Pt Anamika Arroyo is a 69 yr old female, admitted to hospitalist services for new onset Afib with RVR, acute hypoxic respiratory failure 2/2 to fluid overload, and upper respiratory infection. ASW met with at bedside to complete initial assessment. ASW introduced self and role in pt care. At time of encounter pt is noted to be alert and oriented to person, place and situation. Pt expressed understanding admission orders. Pt able to confirm demographic information. Pt is from home [address] in [place]. In the home pts granddaughter, pts brother and pts brother partner. Pt identifies her son Brian Marr [phone] as surrogate DM. Pt is retired. At baseline pt reports being independent with ambulation and with completing her ADLs. Pt is on dialysis at [facility]. Pts chair days are Tuesday, Tuesday and Tuesday. Pts on time is 0530. Pt reports she drives herself to dialysis. Pt reports she is not diabetic. Per pt she does not require supplemental O2 at home, in the ED pt is on 3L. Pt is followed by Dr. Indy Herr for primary care. Pt is followed by Dr. Leiva for nephrology. At time of D/c pt will D/c home, with family supporting with transport.
[2024-09-10] MEDS: AMIODARONE 150 MG IVPB 150 MG/100 ML BAG 600 MG IV (18:27)
[2024-09-10] MEDS: SEVELAMER CARBONATE 800 MG TABLET 1600 MG PO (18:32)
[2024-09-10] MEDS: AMIODARONE 360 MG IVPB 360 MG/200 ML BAG 33.333 MG IV (18:38)
--- NOTE | 2024-09-10 20:19 | ESCONSULT_ITS ---
<Statement entered by Franco Chávez MD - 09/12/24 17:45> The patient is well-known to me with a longstanding history of hypertension CKD stage V admitted to hospital atrial fibrillation rapid heart rate congestive heart failure HFpEF suspected by A-fib also volume overload continues to improve slowly but remains in atrial clip atrial fibrillation rate controlled recommend continuing amiodarone and changed to oral amiodarone later on for rate control and also volume overload will be addressed with dialysis. Evaluated the patient and spent more than 40 minutes in the emergency department along with resident physician Dr Mary agree with the treatment plan recommendation as documented by PGY 2 Dr Mary. HPI Data of Consult Requesting Physician: Hussain Milligan MD Admitting Provider: Nik Reddy MD Attending Provider: Hussain Milligan MD Primary Care Provider: Indy Herr MD Consult Narrative Reason for consult: New onset new onset A-fib with RVR History of present illness: Ms. Arroyo is a 69-year-old female with past medical history significant for end-stage renal disease on hemodialysis, diabetes myelitis, hypertension, hyperlipidemia, PAD who presented to the ED with cough and congestion as well as dizziness for the last few days. Associated symptoms include pleuritic pain after deep breaths, weakness, and right lower extremity swelling. Patient denies any chest pain, abdominal pain, and palpitations. In the ED, patient was first EKG showed sinus rhythm however repeat EKG showed A-fib with RVR. Otherwise, labs significant for macrocytic anemia, and elevated potassium of 5.4. Patient was given IV Dilt push and started on IV Dilt drip. Of note, patient was recently seen at Dr. Chávez's office for tachycardia and was recently switched from carvedilol 3.125 mg twice daily to metoprolol succinate 50 mg daily. Patient also had an echocardiogram done 08/04/24 which showed dilated right atrium and ventricle, mildly decreased systolic function, ejection fraction 60%, mitral annulus calcification with mitral valve thickening with moderate regurgitation of 2+, trace to mild pulmonic valve regurgitation, moderate to severe tricuspid valve regurgitation and normal pulmonary artery pressure of 33 mmHg. Cardiology was consulted for new onset A-fib with RVR. cc:: cc: Hussain Milligan MD Review of Systems Review of Systems Systems Reviewed: All systems reviewed, normal except as documented Exam Vital Signs Temp Pulse Resp BP Pulse Ox O2 Del Method O2 Flow Rate 98.6 F 96 17 121/67 96 Room Air 3 09/10/24 20:17 09/10/24 20:17 09/10/24 20:17 09/10/24 20:17 09/10/24 20:17 09/10/24 20:17 09/10/24 20:17 Narrative Exam General Appearance: Pt in moderate acute distress sitting upright in bed. HEENT: NC/AT, no scleral icterus, conjunctival pallor bilaterally, MMM Lungs: Diminished lung sounds throughout all lung stephens. CVS: Irregularly, irregular, tachycardic, S1/S2 heard, no murmurs or rubs appreciated, 1+ pitting edema to ankles of right lower extremity. ABD: Soft, non-tender, non-distended, BS + in all 4 quadrants EXT: no deformity/edema/lesions/cyanosis/clubbing, radial pulses 2+ BL, DP pulses 2 + BL SKIN: Skin exam normal without any rashes. Neuro: A&O x 3. No gross neurological deficits. Motor and sensory grossly intact in B/L UL and LL. Psych: Appropriate mood and affect Results Labs 09/10/24 04:54 09/10/24 04:54 Labs: Short CBC 09/09/24 09/10/24 Range/Units 20:34 04:54 WBC 4.3 4.3 (3.6-11.0) Thou/mm3 Hgb 10.2 L 10.5 L (12.0-16.0) g/dL Hct 31.8 L 33.2 L (36.0-46.0) % Plt Count 97 L 99 L (140-440) Thou/mm3 BMP 09/09/24 09/10/24 20:34 04:54 Sodium 135 L 136 Potassium 4.9 5.4 H D Chloride 94 L 95 L Carbon Dioxide 27.1 24.6 BUN 52 H 52 H Creatinine 8.7 H* 8.8 H* Glucose 96 89 Calcium 9.7 9.5 Cardiac Enzymes 09/09/24 09/10/24 Range/Units 20:34 00:37 Troponin I 0.020 0.020 (0.0-0.045) ng/mL Liver Function 09/09/24 09/10/24 Range/Units 20:34 04:54 Total Bilirubin 0.3 (0.3-1.2) mg/dL AST 29 (0-34) U/L ALT 10 (10-49) U/L Alkaline Phosphatase 87 (46-116) U/L Albumin 4.4 4.8 (3.4-4.8) gm/dL Quality Measures Quality Measures none Advance care planning discussed with:: patient Medications Home Medications and Allergies Home Medications ?Medication ?Instructions ?Recorded ?Confirmed ?Type calcium acetate 667 mg tablet 1,334 mg PO TIDWM 12/01/20 11/24/23 History vitamin B complex-vitamin C-folic 1 tab PO QDAY 08/03/21 11/24/23 History acid 0.8 mg tablet (Leonor-Shana) nicardipine 20 mg capsule 1 cap PO TID 04/09/22 11/24/23 History hydralazine 50 mg tablet 1 tab PO TID 04/12/22 11/24/23 History carvedilol 6.25 mg tablet (Coreg) 6.25 mg PO BID 08/01/23 11/24/23 History Allergies Allergy/AdvReac Type Severity Reaction Status Date / Time hydrocodone [From Vicodin] Allergy Severe Hives Verified 07/31/23 15:25 Visit Medications Acetaminophen (Acetaminophen 325 Mg Tablet) 650 mg PO Q6H PRN PRN Reason: Fever >100.4 or Pain 1-10 Stop: 10/10/24 02:15 Last Admin: 09/10/24 03:03 Dose: 650 mg Benzonatate (Benzonatate 100 Mg Capsule) 100 mg PO Q8HR PRN; Protocol PRN Reason: COUGH Stop: 10/10/24 02:22 Heparin Sodium (Porcine) (Heparin Sod Inj 5000 Unit/Ml Vial) 5,000 unit SC Q8HR OLEG Stop: 09/24/24 05:59 Last Admin: 09/10/24 14:33 Dose: Not Given Amiodarone HCl/Dextrose (Nexterone Ivpb) 360 mg in 200 mls @ 33.333 mls/hr IV .Q6H ONE; Protocol Stop: 09/10/24 23:34 Last Admin: 09/10/24 18:38 Dose: 33.333 mls/hr Amiodarone HCl/Dextrose (Nexterone Ivpb) 360 mg in 200 mls @ 16.667 mls/hr IV .Q12H OLEG; Protocol Stop: 09/11/24 17:44 Ipratropium [place] (Ipratropium Rt 0.5 Mg/ 2.5 Ml Nebu) 0.5 mg INH Q6HRRT PRN PRN Reason: Shortness of breath or wheezing Stop: 10/10/24 06:59 Levalbuterol HCl (Levalbuterol Rt 0.63 Mg/3 Ml Nebu) 0.63 mg INH Q6HRRT PRN PRN Reason: Shortness of breath or wheezing Stop: 10/10/24 06:59 Lidocaine (Lidocaine 5% 1 Patch) 1 patch TOP DAILY PRN PRN Reason: LOCALIZED PAIN Stop: 10/10/24 14:54 Lorazepam (Lorazepam 0.5 Mg Tablet) 1 mg PO HS [facility] Stop: 09/15/24 20:59 Melatonin (Melatonin 3 Mg Tablet) 3 mg PO DAILY [facility] Stop: 10/10/24 13:29 Last Admin: 09/10/24 14:21 Dose: 3 mg Metoprolol Succinate (Metoprolol Succinate Xl 25 Mg Tabcr) 50 mg PO BID [facility] Stop: 10/10/24 20:59 Ondansetron HCl (Ondansetron Inj 2 Mg/Ml Inj 2 Ml) 4 mg IV Q6H PRN; Protocol PRN Reason: NAUSEA OR VOMITING Stop: 10/10/24 02:15 Quetiapine Fumarate (Quetiapine Fumarate 25 Mg Tablet) 25 mg PO HS [facility] Stop: 10/10/24 20:59 Sevelamer Carbonate (Sevelamer Carbonate 800 Mg Tablet) 1,600 mg PO TIDWM [facility] Stop: 10/10/24 17:29 Last Admin: 09/10/24 18:32 Dose: 1,600 mg Discontinued Medications Carvedilol (Carvedilol 3.125 Mg Tablet) 6.25 mg PO BIDWM [facility] Stop: 10/10/24 17:29 Last Admin: 09/10/24 15:17 Dose: Not Given Carvedilol (Carvedilol 3.125 Mg Tablet) 6.25 mg PO X1 ONE Stop: 09/10/24 15:17 Last Admin: 09/10/24 15:21 Dose: 6.25 mg Diltiazem HCl (Diltiazem Inj 5 Mg/Ml Vial 5 Ml) 15 mg IV X1 ONE Stop: 09/10/24 00:24 Last Admin: 09/10/24 00:30 Dose: 15 mg Furosemide (Furosemide Inj 10 Mg/Ml 4ml Vial) 40 mg IVP QDAY [facility] Stop: 10/10/24 08:59 Diltiazem HCl (Diltiazem In D5w 125 Mg) 125 mg in 125 mls @ 5 mls/hr IV .Q24H [facility] Stop: 10/10/24 00:24 Last Admin: 09/10/24 02:46 Dose: 5 mg/hr, 5 mls/hr Amiodarone HCl/Dextrose (Nexterone Ivpb) 150 mg in 100 mls @ 600 mls/hr IV .Q10M ONE; Protocol Stop: 09/10/24 17:44 Last Admin: 09/10/24 18:27 Dose: 600 mls/hr Assessment & Plan Plan Ms. Arroyo is a 69-year-old female with past medical history significant for end-stage renal disease on hemodialysis, diabetes myelitis, hypertension, hyperlipidemia, PAD who presented to the ED with cough and congestion as well as dizziness for the last few days. Cardiology was consulted for new onset A-fib with RVR. #HFpEF #A-fib with RVR #HTN #HLD Patient presented with symptoms of cough, congestion and dizziness for the last few days. Last Echo on 08/04/24 showed dilated right atrium and ventricle, mildly decreased systolic function, ejection fraction 60%, mitral annulus calcification with mitral valve thickening with moderate regurgitation of 2+,and moderate to severe tricuspid valve regurgitation. On physical exam, patient appears to be fluid overloaded. Chest x-ray also shows mild congestion bilaterally. Symptoms most likely precipitated by atrial fibrillation. Patient initially given IV Dilt push and started on Cardizem drip in the ED. [place] Vascore is 5. Patient's current monitoring tech shows atrial flutter 3:1. - Will discontinue IV diltiazem drip - Will start IV amiodarone with bolus and transition later to amiodarone p.o. twice daily after patient converted to sinus rhythm - Will also start patient on metoprolol succinate 50 mg twice daily to help control her heart rate - Due to patient's induced anxiety from current heart failure and A-fib, will recommend giving Ativan 1 mg at night to aid in sleeping - Continue to follow dialysis schedule to remove fluid as tolerated - Will have to discuss anticoagulation prior to discharge, weighing the risks and benefits; patient most likely will benefit from Eliquis 2.5 mg twice daily based on her renal failure and weight - Despite previous echo on 08/04/24, can order another echo to see current heart failure status #Acute hypoxic respiratory failure, secondary to fluid overload #ESRD on HD M/W/F #Upper respiratory infection #Cervical radiculopathy pain Rest of problems as per primary team Patient's plan and care discussed with my attending, Dr. Kyler Mary MD PGY-2
[2024-09-10] MEDS: METOPROLOL SUCCINATE XL 25 MG TABCR 50 MG PO (20:46)
[2024-09-10] MEDS: LORazepam 0.5 MG TABLET 1 MG PO (20:48)
[2024-09-10] MEDS: QUEtiapine FUMARATE 25 MG TABLET PO (21:41)
[2024-09-11] VITALS (21 sets, daily range): BP systolic 90–123; BP diastolic 46–81; PULSE 80–115; RESP 15–32; TEMP 36.1–36.5; O2SAT 82–97
[2024-09-11] MEDS: AMIODARONE 360 MG IVPB 360 MG/200 ML BAG 16.667 MG IV ×2 (00:26→13:59)
[2024-09-11] MEDS: HEPARIN SOD INJ 5000 UNIT/ML VIAL SC (06:00)
[2024-09-11 06:45] LABS: Basophils % (Auto) 1 % (0-2.5); Eosinophils # (Auto) 0.1 Thou/mm3 (0.0-0.5); Eosinophils % (Auto) 2 % (0-10); Hematocrit 31.1 % (36.0-46.0); Hemoglobin 10.1 g/dL (12.0-16.0); Immature Granulocytes % (Auto) 1 % (0-0); Immature Granulocytes Auto 0.02 Thou/mm3 (0.00-0.00); Lymphocytes # (Auto) 0.9 Thou/mm3 (1.0-4.8); Lymphocytes % (Auto) 21 % (10-50); Mean Corpuscular HGB Conc 32.5 g/dl (31.0-37.0); Mean Corpuscular Hemoglobin 33.4 pg (25.0-35.0); Mean Corpuscular Volume 103 fL (80-100); Monocytes # (Auto) 0.9 Thou/mm3 (0.0-0.8); Monocytes % (Auto) 22 % (0-12); Neutrophils # (Auto) 2.3 Thou/mm3 (1.8-7.7); Neutrophils % (Auto) 54 % (37-80); Nucleated Red Blood Cell % 0 /100 WBC (0); Platelet Count 95 Thou/mm3 (140-440); RDW Standard Deviation 52.4 fL (36.4-46.3); Red Blood Count 3.02 Miln/mm3 (4.00-5.20); White Blood Count 4.3 Thou/mm3 (3.6-11.0)
[2024-09-11 07:21] LABS: Alanine Aminotransferase 12 U/L (10-49); Albumin, Serum 4.5 gm/dL (3.4-4.8); Albumin/Globulin Ratio 1.6 (1.2-2.2); Alkaline Phosphatase 78 U/L (46-116); Anion Gap 15 (7-16); Aspartate Amino Transferase 28 U/L (0-34); BUN/Creatinine Ratio 6 Ratio (12-20); Bilirubin,Total 0.3 mg/dL (0.3-1.2); Blood Urea Nitrogen 38 mg/dL (9-23); Calcium 9.3 mg/dL (8.3-10.6); Calcium (Corrected) 9.3 mg/dL (8.5-10.1); Carbon Dioxide 27.6 mMol/L (20.0-31.0); Chloride 91 mMol/L (98-107); Creatinine (Component) 6.5 mg/dL (0.6-1.3); Estimated Creatinine Clearance 6.8 mL/min (>60); Globulin 2.9 gm/dL (2.3-3.5); Glucose 96 mg/dL (74-106); Magnesium 2.4 mg/dL (1.6-2.6); Osmolality,Calculated 277 (275-295); Phosphorous 7.6 mg/dL (2.4-5.1); Potassium 4.6 mMol/L (3.4-5.1); Sodium 134 mMol/L (136-145); Total Protein 7.4 gm/dL (5.7-8.2); eGFR 6 See Note
--- NOTE | 2024-09-11 07:57 | ESPR_ITS ---
<Statement entered by Alisha Donahue MD - 09/11/24 14:38> Patient is currently on amnio drip, discontinued Cardizem drip by cardiology will transition to p.o. amnio. Started the patient on metoprolol succinate 50 daily. Eliquis 2.5 twice daily for anticoagulation. anticipate discharge in next 24 to 48 hours I discussed with and supervised my co-resident involved in the care of this patient. I agree with the assessment and plan as documented above. Alisha Donahue,PGY-3 Disclaimer: Despite multiple revisions, due to the dictation software being used, the document below may not be free of grammatical errors including phonetic/typographic errors. However, this does not deter from our commitment to providing health care in the patient's best interest in mind. Documentation for date of: 09/11/24 Subjective Subjective Interval history: No acute overnight events. She got ATIVAN for anxiety and sleep last night but reports hallucination. We continue with SEROQUEL alone. Feels like she has the cold, asked why we are not treating it. CXR normal, Influenza A/B negative, COVID negative, no fever or leukocytosis. Will continue to treat cough symptomatically with BENZONATATE. Denies fever, chills, headaches, chest pain, sob, productive cough, GI or urinary symptoms. Exam Vital Signs Temp Pulse Resp BP Pulse Ox O2 Del Method O2 Flow Rate 97.0 F 93 16 112/69 93 L Nasal Cannula 5 09/10/24 23:48 09/11/24 00:26 09/10/24 23:48 09/11/24 00:26 09/10/24 23:48 09/10/24 23:48 09/10/24 23:48 Narrative Exam GENERAL * Normal-appearing elderly female in no apparent distress. HEENT * NCAT.?HAJA. Oral mucosa is moist. Patent Nares NECK * Supple, nontender, no thyromegaly, no meningismus, no JVD, no step offs CHEST * Tachycardic, regular irregular rhythm, no m/g/r * CTAB, no w/r/r. Symmetrical chest rise. No intercostal subcostal retraction * Atraumatic, nontender, no crepitus, symmetrical expansion. ABDOMEN * Soft, flat, nontender. No guarding/rebound tenderness/masses. * Bowel sounds presents EXTREMITIES * Nontender, no cyanosis, no edema * No edema/cyanosis.? SKIN * Warm and dry, no jaundice/rashes. NEUROMUSCULAR * No lumbar or midline, no CVA, no paraspinal muscle spasm or tenderness. * YOUNG x4, CN II-XII grossly intact. * No focal neurologic deficits. PSYCHIATRY * Normal mood and affect, cooperative, no SI or HI or hallucinations. Objective Labs 09/11/24 05:06 09/11/24 05:06 Labs: Laboratory Results - last 24 hr 09/11/24 05:06 WBC 4.3 RBC 3.02 L Hgb 10.1 L Hct 31.1 L MCV 103 H MCH 33.4 MCHC 32.5 RDW Std Deviation 52.4 H Plt Count 95 L Neut % (Auto) 54 Lymph % (Auto) 21 [place] % (Auto) 22 H Eos % (Auto) 2 Baso % (Auto) 1 Neut # (Auto) 2.3 Lymph # (Auto) 0.9 L [place] # (Auto) 0.9 H Eos # (Auto) 0.1 Baso # (Auto) 0.0 Immature Gran # (Auto) 0.02 H Absolute Nucleated RBC 0.00 Immature Gran % 1 H Nucleated RBC % 0 Sodium 134 L Potassium 4.6 D Chloride 91 L Carbon Dioxide 27.6 Anion Gap 15 BUN 38 H Creatinine 6.5 H* D Estim Creat Clear Calc 6.8 L eGFR 6 L* BUN/Creatinine Ratio 6 L Glucose 96 Calculated Osmolality 277 Calcium 9.3 Corrected Calcium 9.3 Phosphorus 7.6 H Magnesium 2.4 Total Bilirubin 0.3 AST 28 ALT 12 Alkaline Phosphatase 78 Total Protein 7.4 Albumin 4.5 Globulin 2.9 Albumin/Globulin Ratio 1.6 Quality Measures Quality Measures none Advance care planning discussed with:: patient Assessment & Plan Assessment Current Active Medications: Generic Name Dose Route Start Last Admin Trade Name Freq PRN Reason Stop Dose Admin Acetaminophen 650 mg 09/10/24 02:16 09/10/24 03:03 Acetaminophen 325 Mg Tablet PO 10/10/24 02:15 650 mg Q6H PRN Administration Fever >100.4 or Pain 1-10 Benzonatate 100 mg 09/10/24 02:23 Benzonatate 100 Mg Capsule PO 10/10/24 02:22 Q8HR PRN COUGH Protocol Heparin Sodium (Porcine) 5,000 unit 09/10/24 06:00 09/10/24 21:42 Heparin Sod Inj 5000 Unit/Ml Vial SC 09/24/24 05:59 5,000 unit Q8HR OLEG Administration Amiodarone HCl/Dextrose 360 mg in 200 mls @ 16.667 mls/hr 09/10/24 23:35 09/11/24 00:26 Nexterone Ivpb IV 09/11/24 23:34 16.667 mls/hr .Q12H OLEG Administration Protocol Ipratropium [place] 0.5 mg 09/10/24 02:16 Ipratropium Rt 0.5 Mg/ 2.5 Ml Nebu INH 10/10/24 06:59 Q6HRRT PRN Shortness of breath or wheezing Levalbuterol HCl 0.63 mg 09/10/24 02:16 Levalbuterol Rt 0.63 Mg/3 Ml Nebu INH 10/10/24 06:59 Q6HRRT PRN Shortness of breath or wheezing Lidocaine 1 patch 09/10/24 14:55 Lidocaine 5% 1 Patch TOP 10/10/24 14:54 DAILY PRN LOCALIZED PAIN Lorazepam 1 mg 09/10/24 21:00 09/10/24 20:48 Lorazepam 0.5 Mg Tablet PO 09/15/24 20:59 1 mg HS OLEG Administration Melatonin 3 mg 09/10/24 13:30 09/10/24 14:21 Melatonin 3 Mg Tablet PO 10/10/24 13:29 3 mg DAILY OLEG Administration Metoprolol Succinate 50 mg 09/10/24 21:00 09/10/24 20:46 Metoprolol Succinate Xl 25 Mg Tabcr PO 10/10/24 20:59 50 mg BID OLEG Administration Ondansetron HCl 4 mg 09/10/24 02:16 Ondansetron Inj 2 Mg/Ml Inj 2 Ml IV 10/10/24 02:15 Q6H PRN NAUSEA OR VOMITING Protocol Quetiapine Fumarate 25 mg 09/10/24 21:00 09/10/24 21:41 Quetiapine Fumarate 25 Mg Tablet PO 10/10/24 20:59 25 mg HS OLEG Administration Sevelamer Carbonate 1,600 mg 09/10/24 17:30 09/10/24 18:32 Sevelamer Carbonate 800 Mg Tablet PO 10/10/24 17:29 1,600 mg TIDWM OLEG Administration Plan 69-year-old female with past medical history of ESRD on HD M/W/, hypertension, hyperlipidemia, PAD who presented to the ED on 09/10/2024 with symptoms of dizziness worsened with positional changes after recent medication change. Patient developed new onset afib with RvR while in ED and was admitted for further management. Currently on AMIODARONE drip and will switch to PO after. HR controlled. Asymptomatic. Disposition: switch to PO AMIODARONE after ggt completion. ECHO will likely get done outpatient if discharging tomorrow since we don't have customer data technician. Discussed starting ELIQUIS with patient. Informed about risk of bleeding, including brain bleed. Patinet agreed prior to starting therapy. Appreciate recommendations from cardiology team. Presyncope New onset paroxysmal afib with RvR HTN Most likely cardiac arrhythmia versus less likely metabolic derangement 2/2 ESRD. Presenting with dizziness, no following loss of consciousness, reports recurrent palpitation in her chest. In ED found to have new A-fib with RVR with HR 143 on EKG with no acute ST changes. Denies chest pain or shortness of breath. Continued on DILTIAZEM drip. HR 100s, BP 170/90 after HD. CHADS-VASc is 3 points, anticoagulation may be recommended. Orthostatic vital negative. No focal neurological deficits, speech abnormalities or facial asymmetry. ? Discontinued DILTIAZEM drip. ? Discontinued home CARVEDILOL ? Continue METOPROLOL succinate 50 mg BID ? Continue AMIODARONE drip ? Start AMIODARONE 200 BID after drip completion ? Continue home CARVEDILOL 6.25 mg BID ? Continue ELIQUIS 2.5 mg BID ? Pending echocardiogram Acute hypoxic respiratory failure, secondary to fluid overload ESRD on HD M/W/ Likely secondary to fluid overload in the setting of new onset afib and ESRD. Patient has URI symptoms but no evidence of pneumonia on CXR. Bilateral crackles present on exam likely secondary to afib episode combined with dialysis session that is due. Patient states she ended dialysis about 1 hr early on Tuesday. Last echo per patient normal. ? Hemodialysis with nephrology, MWF ? Oxygen PRN Anxiety Insomnia Has trouble sleeping 2/2 anxiety. Did not tolerate ATIVAN, reported hallucination. Will continue with SEROQUEL alone. ? Continue SEROQUEL 25 mg HS Upper respiratory infection Per patient multiple sick household members. COVID, flu negative on admission. MRSA negative. CXR appears clear, pt not septic. ? Nebulizers ipratropium/levalbuterol as needed ? Continue BENZONATATE Q8H OLEG Cervical radiculopathy pain Complains of chronic bilateral shoulder pain which followed a fall that occurred [address] cervical spine showed degenerative disc changes. No loss sensation or weakness in all extremities. ? Recommended outpatient follow-up. ? LIDOCAINE patches for pain Health maintenance Diet: Cardiac GI prophylaxis: Not indicated DVT prophylaxis: ELIQUIS Antibiotics: Not indicated CODE STATUS: Full code Disposition: Cardiology recommendations for A-fib. Patient case was discussed with attending, Hussain Milligan MD and senior residents Dr. Donahue and Dr. Fernández. Gregoria Oneil, Attending Provider Attestation/Addendum I reviewed labs, imaging, EKG, home medications and prior available records. Face to face evaluation was performed by me. I have personally examined the patient and discussed assessment and plan with the IM team. I reviewed the resident note and agree with the plan with exceptions as below. Atrial fibrillation with RVR ESRD on hemodialysis Anxiety/anxiety Chronic pain Essential hypertension Discussed with cardiology: Started IV amiodarone. Switch to p.o. amiodarone. Started Coreg. Discussed with patient: She is okay to start Eliquis 2.5 mg twice daily given her elevated [id number] score Hemodialysis today. Nephrology is consulted and following Seroquel for insomnia/anxiety Pain medications as needed
--- NOTE | 2024-09-11 09:28 | PC.NURSE ---
[facility] 0100 to 0700.
[2024-09-11] MEDS: ALBUMIN HUMAN 25% IVPB 25 GM/100 ML BTL IV (09:41)
--- NOTE | 2024-09-11 09:43 | PC.NURSE ---
Low BP, Albumin 25% given IVP. UF increased to account for the albumin.
--- NOTE | 2024-09-11 09:50 | ESPR_ITS ---
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 Cut her dialysis session short then and saw her primary care physician who gave her Claritin and cough syrup. Over the weekend she started having worsening shortness of breath, orthopnea, wheezing and cough that prompted an ED visit and noted to be in hypoxic respiratory failure. In ED, WBC 4.3, hemoglobin 10.2, platelets 97. Na 135, K 5.4, BUN 52, Cr 8.8, phos 9.6, LFTs normal, BNP 1286, troponin 0.02, albumin 4.8. CXR showed CHF pattern. EKG showed A-fib with RVR. Given IV diltiazem, oxygen, and breathing treatments. Admitted to telemetry for management of congestive heart failure, possible pneumonia//bronchitis. Nephrology consultation requested for need for emergency dialysis. Home medications: Calcium acetate 1334 mg p.o. TID w/ meals, carvedilol 6.25 mg PO BID, hydralazine 50 mg 1 tablet p.o. TID, nicardipine 20 mg 1 cap p.o. TID, Leonor-Shana 1 tab p.o. daily. 09/11: Patient seen and examined while undergoing dialysis. Blood pressure noted to be too low to continue and was only able to tolerate 1.5 hours. States that she still feels short of breath and does not think that she is fluid overloaded at this time. Otherwise, no acute overnight events reported. Denies chest discomfort or palpitations. Exam Vital Signs Temp Pulse Resp BP Pulse Ox O2 Del Method O2 Flow Rate 97.7 F 88 18 103/69 94 L Nasal Cannula 6 09/11/24 08:39 09/11/24 09:45 09/11/24 08:39 09/11/24 09:45 09/11/24 08:39 09/11/24 08:00 09/11/24 08:39 Narrative Exam General: AOx3, no acute distress, able to speak full sentences HEENT: NC/AT, mucous membranes moist, bilateral sclera anicteric Cardiovascular: regular rate and rhythm, S1/S2 present, no murmurs appreciated Pulmonary: clear to auscultation bilaterally, no rales/rhonchi/wheezes Abdominal: soft, non-tender, non-distended, no rebound/guarding, normal bowel sounds present Musculoskeletal: normal ROM, no peripheral edema Skin: warm and dry, intact, no rashes Neuro: CN II-XII intact, no focal deficits Objective Labs 09/12/24 05:10 09/11/24 05:06 Labs: Laboratory Results - last 24 hr 09/11/24 05:06 WBC 4.3 RBC 3.02 L Hgb 10.1 L Hct 31.1 L MCV 103 H MCH 33.4 MCHC 32.5 RDW Std Deviation 52.4 H Plt Count 95 L Neut % (Auto) 54 Lymph % (Auto) 21 [place] % (Auto) 22 H Eos % (Auto) 2 Baso % (Auto) 1 Neut # (Auto) 2.3 Lymph # (Auto) 0.9 L [place] # (Auto) 0.9 H Eos # (Auto) 0.1 Baso # (Auto) 0.0 Immature Gran # (Auto) 0.02 H Absolute Nucleated RBC 0.00 Immature Gran % 1 H Nucleated RBC % 0 Sodium 134 L Potassium 4.6 D Chloride 91 L Carbon Dioxide 27.6 Anion Gap 15 BUN 38 H Creatinine 6.5 H* D Estim Creat Clear Calc 6.8 L eGFR 6 L* BUN/Creatinine Ratio 6 L Glucose 96 Calculated Osmolality 277 Calcium 9.3 Corrected Calcium 9.3 Phosphorus 7.6 H Magnesium 2.4 Total Bilirubin 0.3 AST 28 ALT 12 Alkaline Phosphatase 78 Total Protein 7.4 Albumin 4.5 Globulin 2.9 Albumin/Globulin Ratio 1.6 Quality Measures Quality Measures none Advance care planning discussed with:: patient Assessment & Plan Assessment Current Active Medications: Generic Name Dose Route Start Last Admin Trade Name Freq PRN Reason Stop Dose Admin Acetaminophen 650 mg 09/10/24 02:16 09/10/24 03:03 Acetaminophen 325 Mg Tablet PO 10/10/24 02:15 650 mg Q6H PRN Administration Fever >100.4 or Pain 1-10 Amiodarone HCl 200 mg 09/12/24 09:00 Amiodarone Hcl 200 Mg Tablet PO 10/12/24 08:59 BID OLEG Benzonatate 100 mg 09/10/24 02:23 Benzonatate 100 Mg Capsule PO 10/10/24 02:22 Q8HR PRN COUGH Protocol Heparin Sodium (Porcine) 5,000 unit 09/10/24 06:00 09/11/24 06:00 Heparin Sod Inj 5000 Unit/Ml Vial SC 09/24/24 05:59 5,000 unit Q8HR OLEG Administration Amiodarone HCl/Dextrose 360 mg in 200 mls @ 16.667 mls/hr 09/10/24 23:35 09/11/24 00:26 Nexterone Ivpb IV 09/11/24 23:34 16.667 mls/hr .Q12H OLEG Administration Protocol Albumin Human 25 gm in 100 mls @ 100 mls/hr 09/11/24 09:40 09/11/24 09:41 Albuminar-25 Ivpb IV 09/11/24 10:39 100 mls/hr PRN ONE Administration Ipratropium [place] 0.5 mg 09/10/24 02:16 Ipratropium Rt 0.5 Mg/ 2.5 Ml Nebu INH 10/10/24 06:59 Q6HRRT PRN Shortness of breath or wheezing Levalbuterol HCl 0.63 mg 09/10/24 02:16 Levalbuterol Rt 0.63 Mg/3 Ml Nebu INH 10/10/24 06:59 Q6HRRT PRN Shortness of breath or wheezing Lidocaine 1 patch 09/10/24 14:55 Lidocaine 5% 1 Patch TOP 10/10/24 14:54 DAILY PRN LOCALIZED PAIN Lorazepam 1 mg 09/10/24 21:00 09/10/24 20:48 Lorazepam 0.5 Mg Tablet PO 09/15/24 20:59 1 mg HS OLEG Administration Melatonin 3 mg 09/10/24 13:30 09/10/24 14:21 Melatonin 3 Mg Tablet PO 10/10/24 13:29 3 mg DAILY OLEG Administration Metoprolol Succinate 50 mg 09/10/24 21:00 09/10/24 20:46 Metoprolol Succinate Xl 25 Mg Tabcr PO 10/10/24 20:59 50 mg BID OLEG Administration Ondansetron HCl 4 mg 09/10/24 02:16 Ondansetron Inj 2 Mg/Ml Inj 2 Ml IV 10/10/24 02:15 Q6H PRN NAUSEA OR VOMITING Protocol Quetiapine Fumarate 25 mg 09/10/24 21:00 09/10/24 21:41 Quetiapine Fumarate 25 Mg Tablet PO 10/10/24 20:59 25 mg HS OLEG Administration Sevelamer Carbonate 1,600 mg 09/10/24 17:30 09/10/24 18:32 Sevelamer Carbonate 800 Mg Tablet PO 10/10/24 17:29 1,600 mg TIDWM OLEG Administration Plan Anamika Arroyo is a 69-year-old female with history of end-stage renal disease on hemodialysis (M/W/), hypertension, hyperlipidemia, diabetes mellitus, with history of 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 Nephrology consulted for ESRD on hemodialysis (M/W/). #ESRD on hemodialysis (//) secondary to hypertensive nephrosclerosis Patient currently seen on dialysis and was only able to tolerate 1.5 hours due to low blood pressures. ? Obtain daily renal panel ? Renally dose medications ? Avoid nephrotoxic agents ? Restrict fluid intake ? Strict I's and O's ? Sevelamer 800 mg 3 times daily with meals #A-fib vs flutter, follows Dr. Heard outpatient #Macrocytic anemia, presumed secondary to chronic disease/CKD #Thrombocytopenia, chronic #AHRF, secondary to CAP versus acutely decompensated heart failure #Community acquired pneumonia #Acutely decompensated heart failure versus pulmonary edema secondary to fluid noncompliant #Hypertension #Hyperlipidemia ? Continue management per primary team ----- Plan discussed with attending physician Dr. Cali Rosales MD PGY-1 Internal Medicine Attending Provider Attestation/Addendum Patient seen and examined with resident physician Dr. White. Note reviewed, agree with findings and recommendations. #End stage renal disease requiring hemodialysis (scheduled //) secondary to hypertensive nephrosclerosis. Patient currently seen on dialysis. Tolerating dialysis without any problems. Hemodialysis for 2 hours, 2K, ultrafiltration 2L, Epogen 6000, no heparin ordered. Plan of care discussed with the dialysis nurse. Please see dialysis flowsheet for further details. Might need extra session tomorrow if still short of breath.
--- NOTE | 2024-09-11 10:31 | PC.NURSE ---
Bp to low to continue HD. ALl blood returned to pt.
[2024-09-11] MEDS: SEVELAMER CARBONATE 800 MG TABLET 1600 MG PO ×2 (12:39→16:50)
--- NOTE | 2024-09-11 13:29 | ESPR_ITS ---
<Statement entered by Franco Chávez MD - 09/12/24 17:46> I personally examined the patient evaluate the patient with PGY 2 Dr Mary and telemetry floor and appears to be stable now rate controlled well with current regimen continue amiodarone and changed to oral amiodarone subsequently will continue to monitor the patient with you until discharge patient appears to be mostly low atrial rhythm or atrial sinus rhythm currently. Documentation for date of: 09/11/24 Subjective Subjective Interval history: Overnight, no acute events reported. Patient states that she feels much better today however still is orthopneic and short of breath. Patient received dialysis again today, but for half the time than her usual schedule session. Continue with metoprolol succinate 50 mg twice daily along with amiodarone drip, and transition to oral amiodarone status post drip reaching complete date. Will also start patient on Eliquis 2.5 mg twice daily starting tonight and discontinue heparin subcu. healthcare manager suggests patient may be in a flutter, 3-1 rather than than in sinus. 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 Exam Vital Signs Temp Pulse Resp BP Pulse Ox O2 Del Method O2 Flow Rate 97.5 F 86 18 106/64 94 L Nasal Cannula 6 09/11/24 10:32 09/11/24 10:32 09/11/24 10:32 09/11/24 10:32 09/11/24 10:32 09/11/24 08:00 09/11/24 10:32 Narrative Exam General Appearance: Pt in moderate acute distress sitting upright in bed. HEENT: NC/AT, no scleral icterus, conjunctival pallor bilaterally, MMM Lungs: Diminished lung sounds throughout all lung stephens. CVS: Irregularly, irregular, S1/S2 heard, no murmurs or rubs appreciated, 1+ pitting edema to ankles of right lower extremity. JVD present. ABD: Soft, non-tender, non-distended, BS + in all 4 quadrants EXT: no deformity/edema/lesions/cyanosis/clubbing, radial pulses 2+ BL, DP pulses 2 + BL SKIN: Skin exam normal without any rashes. Neuro: A&O x 3. No gross neurological deficits. Motor and sensory grossly intact in B/L UL and LL. Psych: Appropriate mood and affect Objective Labs 09/11/24 05:06 09/11/24 05:06 Labs: Laboratory Results - last 24 hr 09/11/24 05:06 WBC 4.3 RBC 3.02 L Hgb 10.1 L Hct 31.1 L MCV 103 H MCH 33.4 MCHC 32.5 RDW Std Deviation 52.4 H Plt Count 95 L Neut % (Auto) 54 Lymph % (Auto) 21 [place] % (Auto) 22 H Eos % (Auto) 2 Baso % (Auto) 1 Neut # (Auto) 2.3 Lymph # (Auto) 0.9 L [place] # (Auto) 0.9 H Eos # (Auto) 0.1 Baso # (Auto) 0.0 Immature Gran # (Auto) 0.02 H Absolute Nucleated RBC 0.00 Immature Gran % 1 H Nucleated RBC % 0 Sodium 134 L Potassium 4.6 D Chloride 91 L Carbon Dioxide 27.6 Anion Gap 15 BUN 38 H Creatinine 6.5 H* D Estim Creat Clear Calc 6.8 L eGFR 6 L* BUN/Creatinine Ratio 6 L Glucose 96 Calculated Osmolality 277 Calcium 9.3 Corrected Calcium 9.3 Phosphorus 7.6 H Magnesium 2.4 Total Bilirubin 0.3 AST 28 ALT 12 Alkaline Phosphatase 78 Total Protein 7.4 Albumin 4.5 Globulin 2.9 Albumin/Globulin Ratio 1.6 Quality Measures Quality Measures none Advance care planning discussed with:: patient Assessment & Plan Assessment Current Active Medications: Generic Name Dose Route Start Last Admin Trade Name Freq PRN Reason Stop Dose Admin Acetaminophen 650 mg 09/10/24 02:16 09/10/24 03:03 Acetaminophen 325 Mg Tablet PO 10/10/24 02:15 650 mg Q6H PRN Administration Fever >100.4 or Pain 1-10 Amiodarone HCl 200 mg 09/12/24 09:00 Amiodarone Hcl 200 Mg Tablet PO 10/12/24 08:59 BID OLEG Apixaban 2.5 mg 09/11/24 21:00 Apixaban 2.5 Mg Tablet PO 10/11/24 20:59 BID OLEG Benzonatate 100 mg 09/11/24 14:00 Benzonatate 100 Mg Capsule PO 10/11/24 13:59 Q8HR OLEG Protocol Amiodarone HCl/Dextrose 360 mg in 200 mls @ 16.667 mls/hr 09/10/24 23:35 09/11/24 00:26 Nexterone Ivpb IV 09/11/24 23:34 16.667 mls/hr .Q12H OLEG Administration Protocol Ipratropium [place] 0.5 mg 09/10/24 02:16 Ipratropium Rt 0.5 Mg/ 2.5 Ml Nebu INH 10/10/24 06:59 Q6HRRT PRN Shortness of breath or wheezing Levalbuterol HCl 0.63 mg 09/10/24 02:16 Levalbuterol Rt 0.63 Mg/3 Ml Nebu INH 10/10/24 06:59 Q6HRRT PRN Shortness of breath or wheezing Lidocaine 1 patch 09/10/24 14:55 Lidocaine 5% 1 Patch TOP 10/10/24 14:54 DAILY PRN LOCALIZED PAIN Melatonin 3 mg 09/11/24 21:00 Melatonin 3 Mg Tablet PO 10/10/24 13:29 HS OLEG Metoprolol Succinate 50 mg 09/10/24 21:00 09/11/24 10:18 Metoprolol Succinate Xl 25 Mg Tabcr PO 10/10/24 20:59 Not Given BID OLEG Ondansetron HCl 4 mg 09/10/24 02:16 Ondansetron Inj 2 Mg/Ml Inj 2 Ml IV 10/10/24 02:15 Q6H PRN NAUSEA OR VOMITING Protocol Quetiapine Fumarate 25 mg 09/10/24 21:00 09/10/24 21:41 Quetiapine Fumarate 25 Mg Tablet PO 10/10/24 20:59 25 mg HS OLEG Administration Sevelamer Carbonate 1,600 mg 09/10/24 17:30 09/11/24 12:39 Sevelamer Carbonate 800 Mg Tablet PO 10/10/24 17:29 1,600 mg TIDWM OLEG Administration Plan Ms. Arroyo is a 69-year-old female with past medical history significant for end-stage renal disease on hemodialysis, diabetes myelitis, hypertension, hyperlipidemia, PAD who presented to the ED with cough and congestion as well as dizziness for the last few days. Cardiology was consulted for new onset A-fib with RVR. #HFpEF #A-fib with RVR-resolved #A-flutter, 3:1 #HTN #HLD Patient presented with symptoms of cough, congestion and dizziness for the last few days. Last Echo on 08/04/24 showed dilated right atrium and ventricle, mildly decreased systolic function, ejection fraction 60%, mitral annulus calcification with mitral valve thickening with moderate regurgitation of 2+,and moderate to severe tricuspid valve regurgitation. On physical exam, patient appears to be fluid overloaded. Chest x-ray also shows mild congestion bilaterally. Symptoms most likely precipitated by atrial fibrillation. Patient initially given IV Dilt push and started on Cardizem drip in the ED. [place] Vascore is 5. Patient's current farm or ranch animal caretaker continues to show atrial flutter 3:1, but not tachycardic anymore. - Continue with IV amiodarone and transition later to amiodarone p.o. twice daily - Will also start patient on metoprolol succinate 50 mg twice daily to help control her heart rate - Continue to follow dialysis schedule to remove fluid as tolerated - After weighing risks and benefits, anticoagulation for stroke risk is recommended, and will start patient on Eliquis 2.5 mg twice daily based on her renal failure and weight - DC'ed her SC Heparin - Despite previous echo on 08/04/24, can order another echo to see current heart failure status #Acute hypoxic respiratory failure, secondary to fluid overload #ESRD on HD M/W/F #Upper respiratory infection #Cervical radiculopathy pain Rest of problems as per primary team Patient's plan and care discussed with my attending, Dr. Kyler Mary MD PGY-2
[2024-09-11] MEDS: BENZONATATE 100 MG CAPSULE PO ×2 (13:59→21:03)
[2024-09-11] MEDS: AMIODARONE HCL 200 MG TABLET PO (20:30)
[2024-09-11] MEDS: METOPROLOL SUCCINATE XL 25 MG TABCR 50 MG PO (20:30)
[2024-09-11] MEDS: MELATONIN 3 MG TABLET PO (20:30)
[2024-09-11] MEDS: APIXABAN 2.5 MG TABLET PO (20:31)
[2024-09-11] MEDS: PANTOPRAZOLE 40 MG TABLET PO (21:03)
[2024-09-11] MEDS: MG HYD/AL HYD/SIME (Maalox Reg) SUSP 30 ML UDC PO (21:03)
--- NOTE | 2024-09-11 23:05 | XR_ITS ---
Examination: AP chest single view TECHNIQUE: AP portable upright chest single view Examination time: September 11, 2024 11:08 PM Comparison September 09, 2024 INDICATIONS: Hypoxia today. FINDINGS: History CHF Moderate enlargement cardiac contour Prominent vascular congestion Early perihilar basilar septal edema IMPRESSION: Early CHF
[2024-09-11] MEDS: FUROSEMIDE INJ 10 MG/ML 4ML VIAL 40 MG IVP (23:26)
[2024-09-12] VITALS (28 sets, daily range): BP systolic 112–168; BP diastolic 61–85; PULSE 80–93; RESP 14–22; TEMP 36.1–36.4; O2SAT 94–100
[2024-09-12] MEDS: BENZONATATE 100 MG CAPSULE PO ×2 (05:14→21:04)
[2024-09-12] MEDS: hydrOXYzine HCL 25 MG TABLET 12.5 MG PO (05:15)
[2024-09-12 06:12] LABS: Base Excess, Venous 2 (-3-3); O2 Saturation, Venous 86 % (96-97); PCO2, Venous 48 mmHg (36-56); PO2, Venous 53 mmHg (15-58); pH, Venous 7.36 (7.33-7.66)
[2024-09-12 06:15] LABS: Lactate (Lactic Acid) 2.1 mMol/L (0.4-2.0)
[2024-09-12 06:21] LABS: Basophils # (Auto) 0.1 Thou/mm3 (0.0-0.2); Basophils % (Auto) 1 % (0-2.5); Eosinophils # (Auto) 0.1 Thou/mm3 (0.0-0.5); Eosinophils % (Auto) 3 % (0-10); Hematocrit 31.6 % (36.0-46.0); Hemoglobin 10.2 g/dL (12.0-16.0); Immature Granulocytes % (Auto) 1 % (0-0); Immature Granulocytes Auto 0.02 Thou/mm3 (0.00-0.00); Lymphocytes # (Auto) 1.1 Thou/mm3 (1.0-4.8); Lymphocytes % (Auto) 25 % (10-50); Mean Corpuscular HGB Conc 32.3 g/dl (31.0-37.0); Mean Corpuscular Hemoglobin 33.4 pg (25.0-35.0); Mean Corpuscular Volume 104 fL (80-100); Monocytes # (Auto) 0.7 Thou/mm3 (0.0-0.8); Monocytes % (Auto) 15 % (0-12); Neutrophils # (Auto) 2.4 Thou/mm3 (1.8-7.7); Neutrophils % (Auto) 55 % (37-80); Nucleated Red Blood Cell # 0.02 Thou/mm3 (0.00-0.00); Nucleated Red Blood Cell % 1 /100 WBC (0); Platelet Count 85 Thou/mm3 (140-440); RDW Standard Deviation 52.6 fL (36.4-46.3); Red Blood Count 3.05 Miln/mm3 (4.00-5.20); White Blood Count 4.3 Thou/mm3 (3.6-11.0)
--- NOTE | 2024-09-12 08:00 | XR_ITS ---
Examination: CTA chest with intravenous contrast 2-D reconstructions 3-D reconstructions, vascular Date and time of exam: September 12, 2024 1221 hours INDICATIONS: Onset chest pain shortness of breath today CTDI: vol (mGy) 12.9 DLP: (mGycm) 220 Technique: Multiple axial sections of the thorax have been obtained. 3 mm slice thickness, from below the hemidiaphragms to above the apices of the lungs. Mediastinal and lung density settings have been obtained. 2-D sagittal and coronal reconstructions. 3-D angiographic renderings, 3-D volume renderings, 3D post processing, vascular maximum intensity projections obtained. Contrast administered is 100 cc Isovue-370 intravenous Low dose protocols, adjustment MA KV according to patient size FINDINGS: There is thoracic aortic calcification no aneurysmal dilatation Main pulmonary artery segment measures 29 mm No pulmonary artery emboli Moderate enlargement cardiac contour is especially right atrium Heavy calcification left main left anterior descending coronary arteries Mild to moderate calcification Vascular congestion with early septal edema at the lung bases Cirrhosis, liver irregular in contour Mild to moderate ascites Gallbladder wall is thickened, but the patient again has ascites Tiny gallstone No pancreatic mass Atrophic iliamna kidneys IMPRESSION: Negative for pulmonary artery emboli Moderate cardiomegaly with mild CHF Cirrhosis Cholelithiasis Gallbladder wall is thickened but the patient has ascites, consider HIDA scan follow-up as clinically warranted
--- NOTE | 2024-09-12 08:27 | PD.RESPRO ---
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 Cut her dialysis session short then and saw her primary care physician who gave her Claritin and cough syrup. Over the weekend she started having worsening shortness of breath, orthopnea, wheezing and cough that prompted an ED visit and noted to be in hypoxic respiratory failure. In ED, WBC 4.3, hemoglobin 10.2, platelets 97. Na 135, K 5.4, BUN 52, Cr 8.8, phos 9.6, LFTs normal, BNP 1286, troponin 0.02, albumin 4.8. CXR showed CHF pattern. EKG showed A-fib with RVR. Given IV diltiazem, oxygen, and breathing treatments. Admitted to telemetry for management of congestive heart failure, possible pneumonia//bronchitis. Nephrology consultation requested for need for emergency dialysis. Home medications: Calcium acetate 1334 mg p.o. TID w/ meals, carvedilol 6.25 mg PO BID, hydralazine 50 mg 1 tablet p.o. TID, nicardipine 20 mg 1 cap p.o. TID, Leonor-Shana 1 tab p.o. daily. 09/11: Patient seen and examined while undergoing dialysis. Blood pressure noted to be too low to continue and was only able to tolerate 1.5 hours. States that she still feels short of breath and does not think that she is fluid overloaded at this time. Otherwise, no acute overnight events reported. Denies chest discomfort or palpitations. 09/12: Seen and examined at bedside in telemetry. Currently on HFNC at 22 L/min, 100% FiO2 and saturating 99%. Per RT notes, saturation remained low on 15 L oxymask and patient desaturates precipitously with exertion. Repeat CXR did not show significant changes. Noted that she did not tolerate her last dialysis session well due to low blood pressure, so will augment settings for her session later today. However, plan to do so after CTA. Currently on PO amiodarone and recently started on eliquis. Exam Vital Signs Temp Pulse Resp BP Pulse Ox O2 Del Method O2 Flow Rate 97.0 F 82 18 125/74 100 High Flow Nasal Cannula 22 09/12/24 08:00 09/12/24 08:00 09/12/24 08:00 09/12/24 08:00 09/12/24 08:00 09/12/24 08:00 09/12/24 08:00 FiO2 100 09/12/24 08:00 Narrative Exam General: AOx3, fatigued, on HFNC HEENT: NC/AT, mucous membranes moist, bilateral sclera anicteric Cardiovascular: regular rate and rhythm, S1/S2 present, no murmurs appreciated Pulmonary: crackles in left lung stephens Abdominal: soft, non-tender, non-distended, no rebound/guarding, normal bowel sounds present Musculoskeletal: normal ROM, no peripheral edema Skin: warm and dry, intact, no rashes Neuro: CN II-XII intact, no focal deficits Objective Labs 09/14/24 04:30 09/13/24 05:09 Labs: Laboratory Results - last 24 hr 09/12/24 09/12/24 05:10 05:25 WBC 4.3 RBC 3.05 L Hgb 10.2 L Hct 31.6 L MCV 104 H MCH 33.4 MCHC 32.3 RDW Std Deviation 52.6 H Plt Count 85 L Neut % (Auto) 55 Lymph % (Auto) 25 [place] % (Auto) 15 H Eos % (Auto) 3 Baso % (Auto) 1 Neut # (Auto) 2.4 Lymph # (Auto) 1.1 [place] # (Auto) 0.7 Eos # (Auto) 0.1 Baso # (Auto) 0.1 Immature Gran # (Auto) 0.02 H Absolute Nucleated RBC 0.02 H Immature Gran % 1 H Nucleated RBC % 1 H VBG pH 7.36 VBG pCO2 48 VBG pO2 53 VBG O2 Sat (Ute) 86 L VBG Base Excess 2 Lactic Acid 2.1 H ABG Interpretation ABG results: 09/12/24 05:25 VBG pH 7.36 VBG pCO2 48 VBG pO2 53 VBG Base Excess 2 Quality Measures Quality Measures none Advance care planning discussed with:: patient Assessment & Plan Assessment Current Active Medications: Generic Name Dose Route Start Last Admin Trade Name Freq PRN Reason Stop Dose Admin Acetaminophen 650 mg 09/10/24 02:16 09/10/24 03:03 Acetaminophen 325 Mg Tablet PO 10/10/24 02:15 650 mg Q6H PRN Administration Fever >100.4 or Pain 1-10 Amiodarone HCl 200 mg 09/11/24 21:00 09/11/24 20:30 Amiodarone Hcl 200 Mg Tablet PO 10/11/24 20:59 200 mg BID OLEG Administration Apixaban 2.5 mg 09/11/24 21:00 09/11/24 20:31 Apixaban 2.5 Mg Tablet PO 10/11/24 20:59 2.5 mg BID OLEG Administration Benzonatate 100 mg 09/11/24 14:00 09/12/24 05:14 Benzonatate 100 Mg Capsule PO 10/11/24 13:59 100 mg Q8HR OLEG Administration Protocol Ipratropium [place] 0.5 mg 09/10/24 02:16 Ipratropium Rt 0.5 Mg/ 2.5 Ml Nebu INH 10/10/24 06:59 Q6HRRT PRN Shortness of breath or wheezing Levalbuterol HCl 0.63 mg 09/10/24 02:16 Levalbuterol Rt 0.63 Mg/3 Ml Nebu INH 10/10/24 06:59 Q6HRRT PRN Shortness of breath or wheezing Lidocaine 1 patch 09/10/24 14:55 Lidocaine 5% 1 Patch TOP 10/10/24 14:54 DAILY PRN LOCALIZED PAIN Melatonin 3 mg 09/11/24 21:00 09/11/24 20:30 Melatonin 3 Mg Tablet PO 10/10/24 13:29 3 mg HS OLEG Administration Metoprolol Succinate 50 mg 09/10/24 21:00 09/11/24 20:30 Metoprolol Succinate Xl 25 Mg Tabcr PO 10/10/24 20:59 50 mg BID OLEG Administration Ondansetron HCl 4 mg 09/10/24 02:16 Ondansetron Inj 2 Mg/Ml Inj 2 Ml IV 10/10/24 02:15 Q6H PRN NAUSEA OR VOMITING Protocol Pantoprazole Sodium 40 mg 09/11/24 20:40 09/11/24 21:03 Pantoprazole 40 Mg Tablet PO 10/11/24 20:39 40 mg QDAY OLEG Administration Quetiapine Fumarate 25 mg 09/10/24 21:00 09/11/24 20:31 Quetiapine Fumarate 25 Mg Tablet PO 10/10/24 20:59 Not Given HS OLEG Sevelamer Carbonate 1,600 mg 09/10/24 17:30 09/11/24 16:50 Sevelamer Carbonate 800 Mg Tablet PO 10/10/24 17:29 1,600 mg TIDWM OLEG Administration Plan Anamika Arroyo is a 69-year-old female with history of end-stage renal disease on hemodialysis (M/W/F), hypertension, hyperlipidemia, diabetes mellitus, with history of 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 Nephrology consulted for ESRD on hemodialysis (M/W/F). #ESRD on hemodialysis (M/W/F) secondary to hypertensive nephrosclerosis ? Hemodialysis later today after CTA ? Follow-up CTA ? Obtain daily renal panel ? Renally dose medications ? Avoid nephrotoxic agents ? Restrict fluid intake ? Strict I's and O's ? Sevelamer 800 mg 3 times daily with meals #A-fib vs flutter, follows Dr. Heard outpatient #Macrocytic anemia, presumed secondary to chronic disease/CKD #Thrombocytopenia, chronic #AHRF, secondary to CAP versus acutely decompensated heart failure #Community acquired pneumonia #Acutely decompensated heart failure versus pulmonary edema secondary to fluid noncompliant #Hypertension #Hyperlipidemia ? Continue management per primary team ----- Plan discussed with attending physician Dr. Cali Rosales MD PGY-1 Internal Medicine Attending Provider Attestation/Addendum Patient seen and examined with resident physician Dr. White. Note reviewed, agree with findings and recommendations. Patient currently seen on dialysis. Tolerating dialysis without any problems. Hemodialysis for 3 hours, 2K, ultrafiltration 2L, Epogen 6000, no heparin ordered. Plan of care discussed with the dialysis nurse. Please see dialysis flowsheet for further details. Patient currently on high flow oxygen. CTA chest showed no PE. Significant Vascular congestion noted.
[2024-09-12] MEDS: METOPROLOL SUCCINATE XL 25 MG TABCR 50 MG PO ×2 (08:37→20:57)
[2024-09-12] MEDS: AMIODARONE HCL 200 MG TABLET PO ×2 (08:38→20:58)
[2024-09-12] MEDS: APIXABAN 2.5 MG TABLET PO ×2 (08:38→20:58)
[2024-09-12] MEDS: PANTOPRAZOLE 40 MG TABLET PO (08:38)
[2024-09-12 09:09] LABS: Reflex Lactate? Y
[2024-09-12 09:43] LABS: Lactic Acid, 3 HR 1.3 mMol/L (0.4-2.0)
[2024-09-12 10:08] LABS: Alanine Aminotransferase 8 U/L (10-49); Albumin, Serum 4.6 gm/dL (3.4-4.8); Albumin/Globulin Ratio 1.6 (1.2-2.2); Alkaline Phosphatase 77 U/L (46-116); Anion Gap 13 (7-16); Aspartate Amino Transferase 30 U/L (0-34); BUN/Creatinine Ratio 6 Ratio (12-20); Bilirubin,Total 0.3 mg/dL (0.3-1.2); Blood Urea Nitrogen 49 mg/dL (9-23); Calcium 9.6 mg/dL (8.3-10.6); Calcium (Corrected) 9.6 mg/dL (8.5-10.1); Carbon Dioxide 29.1 mMol/L (20.0-31.0); Chloride 93 mMol/L (98-107); Creatinine (Component) 7.9 mg/dL (0.6-1.3); Estimated Creatinine Clearance 5.6 mL/min (>60); Globulin 2.8 gm/dL (2.3-3.5); Glucose 92 mg/dL (74-106); Magnesium 2.8 mg/dL (1.6-2.6); Osmolality,Calculated 283 (275-295); Phosphorous 6.6 mg/dL (2.4-5.1); Procalcitonin 0.44 ng/ml (0.0-0.49); Sodium 135 mMol/L (136-145); Total Protein 7.4 gm/dL (5.7-8.2); eGFR 5 See Note
--- NOTE | 2024-09-12 10:35 | CHAP ---
Patient was visited by a Spiritual Care volunteer on 09/12/2024 between 0900 and 1017 and received comfort, encouragement and/or prayer.
[2024-09-12 11:44] LABS: Hepatitis A Antibody IgM Non Reactive (Non React); Hepatitis B Core Antibody IgM Non Reactive (Non React); Hepatitis B Surface Ab Reactive (Immune) (Immune); Hepatitis B Surface Antigen Non Reactive (Non React); Hepatitis C Antibody Reactive (Non React)
--- NOTE | 2024-09-12 14:32 | PD.RESPRO ---
Documentation for date of: 09/12/24 Subjective Subjective Interval history: No acute overnight events. Will continue to treat cough symptomatically with BENZONATATE. Denies fever, chills, headaches, chest pain, sob, productive cough, GI or urinary symptoms. Exam Vital Signs Temp Pulse Resp BP Pulse Ox O2 Del Method O2 Flow Rate 97.1 F 84 14 126/77 100 High Flow Nasal Cannula 22 09/12/24 12:00 09/12/24 12:00 09/12/24 12:09/12/24 12:09/12/24 12:09/12/24 12:00 09/12/24 12:00 FiO2 100 09/12/24 12:00 Narrative Exam General Appearance: Pt in mild acute distress sitting upright in bed. HEENT: NC/AT, no scleral icterus, conjunctival pallor bilaterally, MMM Lungs: Diminished lung sounds throughout all lung stephens. CVS: Irregularly, irregular, S1/S2 heard, no murmurs or rubs appreciated, JVD present. ABD: Soft, non-tender, non-distended, BS + in all 4 quadrants EXT: no deformity/edema/lesions/cyanosis/clubbing, radial pulses 2+ BL, DP pulses 2 + BL SKIN: Skin exam normal without any rashes. Neuro: A&O x 3. No gross neurological deficits. Motor and sensory grossly intact in B/L UL and LL. Psych: Appropriate mood and affect Objective Labs 09/13/24 05:09 09/13/24 05:09 Labs: Laboratory Results - last 24 hr 09/12/24 09/12/24 09/12/24 05:10 05:25 08:52 WBC 4.3 RBC 3.05 L Hgb 10.2 L Hct 31.6 L MCV 104 H MCH 33.4 MCHC 32.3 RDW Std Deviation 52.6 H Plt Count 85 L Neut % (Auto) 55 Lymph % (Auto) 25 [place] % (Auto) 15 H Eos % (Auto) 3 Baso % (Auto) 1 Neut # (Auto) 2.4 Lymph # (Auto) 1.1 [place] # (Auto) 0.7 Eos # (Auto) 0.1 Baso # (Auto) 0.1 Immature Gran # (Auto) 0.02 H Absolute Nucleated RBC 0.02 H Immature Gran % 1 H Nucleated RBC % 1 H VBG pH 7.36 VBG pCO2 48 VBG pO2 53 VBG O2 Sat (Ute) 86 L VBG Base Excess 2 Sodium 135 L Potassium 5.0 Chloride 93 L Carbon Dioxide 29.1 Anion Gap 13 BUN 49 H Creatinine 7.9 H* D Estim Creat Clear Calc 5.6 L eGFR 5 L* BUN/Creatinine Ratio 6 L Glucose 92 Calculated Osmolality 283 Lactic Acid 2.1 H Calcium 9.6 Corrected Calcium 9.6 Phosphorus 6.6 H Magnesium 2.8 H Total Bilirubin 0.3 AST 30 ALT 8 L Alkaline Phosphatase 77 Total Protein 7.4 Albumin 4.6 Globulin 2.8 Albumin/Globulin Ratio 1.6 Procalcitonin 0.44 Hepatitis A IgM Ab Non Reactive Hep Bs Antigen Non Reactive Hep Bs Antibody Reactive (Immune) Hep B Core IgM Ab Non Reactive Hepatitis C Antibody Reactive A 09/12/24 09:25 WBC RBC Hgb Hct MCV MCH MCHC RDW Std Deviation Plt Count Neut % (Auto) Lymph % (Auto) [place] % (Auto) Eos % (Auto) Baso % (Auto) Neut # (Auto) Lymph # (Auto) [place] # (Auto) Eos # (Auto) Baso # (Auto) Immature Gran # (Auto) Absolute Nucleated RBC Immature Gran % Nucleated RBC % VBG pH VBG pCO2 VBG pO2 VBG O2 Sat (Ute) VBG Base Excess Sodium Potassium Chloride Carbon Dioxide Anion Gap BUN Creatinine Estim Creat Clear Calc eGFR BUN/Creatinine Ratio Glucose Calculated Osmolality Lactic Acid 1.3 Calcium Corrected Calcium Phosphorus Magnesium Total Bilirubin AST ALT Alkaline Phosphatase Total Protein Albumin Globulin Albumin/Globulin Ratio Procalcitonin Hepatitis A IgM Ab Hep Bs Antigen Hep Bs Antibody Hep B Core IgM Ab Hepatitis C Antibody ABG Interpretation ABG results: 09/12/24 05:25 VBG pH 7.36 VBG pCO2 48 VBG pO2 53 VBG Base Excess 2 Quality Measures Quality Measures none Advance care planning discussed with:: patient Assessment & Plan Assessment Current Active Medications: Generic Name Dose Route Start Last Admin Trade Name Freq PRN Reason Stop Dose Admin Acetaminophen 650 mg 09/10/24 02:16 09/10/24 03:03 Acetaminophen 325 Mg Tablet PO 10/10/24 02:15 650 mg Q6H PRN Administration Fever >100.4 or Pain 1-10 Amiodarone HCl 200 mg 09/11/24 21:00 09/12/24 08:38 Amiodarone Hcl 200 Mg Tablet PO 10/11/24 20:59 200 mg BID OLEG Administration Apixaban 2.5 mg 09/11/24 21:00 09/12/24 08:38 Apixaban 2.5 Mg Tablet PO 10/11/24 20:59 2.5 mg BID OLEG Administration Benzonatate 100 mg 09/11/24 14:00 09/12/24 05:14 Benzonatate 100 Mg Capsule PO 10/11/24 13:59 100 mg Q8HR OLEG Administration Protocol Ipratropium [place] 0.5 mg 09/10/24 02:16 Ipratropium Rt 0.5 Mg/ 2.5 Ml Nebu INH 10/10/24 06:59 Q6HRRT PRN Shortness of breath or wheezing Protocol Levalbuterol HCl 0.63 mg 09/10/24 02:16 Levalbuterol Rt 0.63 Mg/3 Ml Nebu INH 10/10/24 06:59 Q6HRRT PRN Shortness of breath or wheezing Protocol Lidocaine 1 patch 09/10/24 14:55 Lidocaine 5% 1 Patch TOP 10/10/24 14:54 DAILY PRN LOCALIZED PAIN Melatonin 3 mg 09/11/24 21:00 09/11/24 20:30 Melatonin 3 Mg Tablet PO 10/10/24 13:29 3 mg HS OLEG Administration Metoprolol Succinate 50 mg 09/10/24 21:00 09/12/24 08:37 Metoprolol Succinate Xl 25 Mg Tabcr PO 10/10/24 20:59 50 mg BID OLEG Administration Ondansetron HCl 4 mg 09/10/24 02:16 Ondansetron Inj 2 Mg/Ml Inj 2 Ml IV 10/10/24 02:15 Q6H PRN NAUSEA OR VOMITING Protocol Pantoprazole Sodium 40 mg 09/11/24 20:40 09/12/24 08:38 Pantoprazole 40 Mg Tablet PO 10/11/24 20:39 40 mg QDAY OLEG Administration Quetiapine Fumarate 25 mg 09/10/24 21:00 09/11/24 20:31 Quetiapine Fumarate 25 Mg Tablet PO 10/10/24 20:59 Not Given HS OLEG Sevelamer Carbonate 1,600 mg 09/10/24 17:30 09/12/24 08:35 Sevelamer Carbonate 800 Mg Tablet PO 10/10/24 17:29 Not Given TIDWM OLEG Plan 69-year-old female with past medical history of ESRD on HD M//, hypertension, hyperlipidemia, PAD who presented to the ED on 09/10/2024 with symptoms of dizziness worsened with positional changes after recent medication change. Patient developed new onset afib with RvR while in ED and was admitted for further management. Currently on AMIODARONE drip and will switch to PO after. HR controlled. Asymptomatic. Disposition: switch to PO AMIODARONE after ggt completion. ECHO will likely get done outpatient if discharging tomorrow since we don't have compressor technician. Discussed starting ELIQUIS with patient. Informed about risk of bleeding, including brain bleed. Patinet agreed prior to starting therapy. Appreciate recommendations from cardiology team. Presyncope New onset paroxysmal afib with RvR HTN Most likely cardiac arrhythmia versus less likely metabolic derangement 2/2 ESRD. Presenting with dizziness, no following loss of consciousness, reports recurrent palpitation in her chest. In ED found to have new A-fib with RVR with HR 143 on EKG with no acute ST changes. Denies chest pain or shortness of breath. Continued on DILTIAZEM drip. HR 100s, BP 170/90 after HD. CHADS-VASc is 3 points, anticoagulation may be recommended. Orthostatic vital negative. No focal neurological deficits, speech abnormalities or facial asymmetry. ? Continue METOPROLOL succinate 50 mg BID ? Continue AMIODARONE 200 BID after drip completion ? Continue ELIQUIS 2.5 mg BID ? Pending echocardiogram Acute hypoxic respiratory failure, secondary to fluid overload ESRD on HD M/W/ Likely secondary to fluid overload in the setting of new onset afib and ESRD. Patient has URI symptoms but no evidence of pneumonia on CXR. Bilateral crackles present on exam likely secondary to afib episode combined with dialysis session that is due. Patient states she ended dialysis about 1 hr early on Tuesday. Last echo per patient normal. Overnight she had worsening SOB, for which she required high flow nasal cannula. CXR showed mild congestion, no pneumonia. CTA was negative for PE or pneumonia, showed mild congestion. Likely volume overload. Anticipate this will improve with hemodialysis. ? Hemodialysis with nephrology, MWF ? Oxygen PRN Anxiety Insomnia Has trouble sleeping 2/2 anxiety. Not tolerating ATIVAN or SEROQUEL. ? Continue HYDROXYZINE 10 mg q.6h. PRN Upper respiratory infection Per patient multiple sick household members. COVID, flu negative on admission. MRSA negative. CXR appears clear, pt not septic. ? Nebulizers ipratropium/levalbuterol as needed ? Continue BENZONATATE Q8H OLEG Cervical radiculopathy pain Complains of chronic bilateral shoulder pain which followed a fall that occurred [address] cervical spine showed degenerative disc changes. No loss sensation or weakness in all extremities. ? Recommended outpatient follow-up. ? LIDOCAINE patches for pain Health maintenance Diet: Cardiac GI prophylaxis: Not indicated DVT prophylaxis: ELIQUIS Antibiotics: Not indicated CODE STATUS: Full code Disposition: Cardiology recommendations for A-fib. Patient case was discussed with attending, Hussain Milligan MD and senior residents Dr. Donahue and Dr. Fernández. Gregoria Oneil, DO Senior Resident Attestation: The patient is saturating on 3L NC. We will continue with HD as regularly scheduled. AHRF 2/2 volume overload is improving. I discussed with and supervised the international trade teacher physician involved in the care of this patient. I personally saw and examined the patient and discussed the assessment and plan with the entire medicine team, including my attending. I agree with the assessment and plan as documented above. Thomas Fernández MD PGY2 Internal Medicine Attending Provider Attestation/Addendum I reviewed labs, imaging, EKG, home medications and prior available records. Face to face evaluation was performed by me. I have personally examined the patient and discussed assessment and plan with the IM team. I reviewed the resident note and agree with the plan with exceptions as below. Acute hypoxic respiratory failure Atrial fibrillation with RVR ESRD on hemodialysis Anxiety/anxiety Chronic pain Essential hypertension Oxygen requirements increased and she required high flow nasal cannula. Ordered CTA of the chest to rule out PE. Discussed with nephrology: Hemodialysis after CTA to washout the contrast. Discussed with cardiology: Started IV amiodarone. Switch to p.o. amiodarone. Started Coreg. Discussed with patient: She is okay to start Eliquis 2.5 mg twice daily given her elevated [id number] score Hemodialysis today. Nephrology is consulted and following Ordered echocardiogram Seroquel for insomnia/anxiety Pain medications as needed
--- NOTE | 2024-09-12 14:42 | ESPR_ITS ---
<Statement entered by Franco Chávez MD - 09/12/24 17:48> I personally examined the patient patient appears to be clinically stable not doing well does not complain of chest pain shortness of breath A-fib rate controlled well we will continue medical management including amiodarone will require anticoagulation Eliquis 2.5 daily evaluated the patient with PGY 2 Dr Mary agree with the treatment plan recommendation as documented Documentation for date of: 09/12/24 Subjective Subjective Interval history: Overnight, no acute events reported. Patient states that her shortness of breath has improved, seen sitting upright in bed with her legs dangling inside of the bed. Patient continues to be on nasal cannula, and not short of breath when talking. The patient continues to be rate controlled with her beta-adela and amiodarone. Continue with Eliquis 2.5 mg twice daily for anticoagulation for stroke risk. Otherwise, patient denies any complaints at this time. Exam Vital Signs Temp Pulse Resp BP Pulse Ox O2 Del Method O2 Flow Rate 97.1 F 84 14 126/77 100 High Flow Nasal Cannula 22 09/12/24 12:00 09/12/24 12:00 09/12/24 12:00 09/12/24 12:00 09/12/24 12:00 09/12/24 12:00 09/12/24 12:00 FiO2 100 09/12/24 12:00 Narrative Exam General Appearance: Pt in mild acute distress sitting upright in bed. HEENT: NC/AT, no scleral icterus, conjunctival pallor bilaterally, MMM Lungs: Diminished lung sounds throughout all lung stephens. CVS: Irregularly, irregular, S1/S2 heard, no murmurs or rubs appreciated, JVD present. ABD: Soft, non-tender, non-distended, BS + in all 4 quadrants EXT: no deformity/edema/lesions/cyanosis/clubbing, radial pulses 2+ BL, DP pulses 2 + BL SKIN: Skin exam normal without any rashes. Neuro: A&O x 3. No gross neurological deficits. Motor and sensory grossly intact in B/L UL and LL. Psych: Appropriate mood and affect Objective Labs 09/12/24 05:10 09/12/24 08:52 Labs: Laboratory Results - last 24 hr 09/12/24 09/12/24 09/12/24 05:10 05:25 08:52 WBC 4.3 RBC 3.05 L Hgb 10.2 L Hct 31.6 L MCV 104 H MCH 33.4 MCHC 32.3 RDW Std Deviation 52.6 H Plt Count 85 L Neut % (Auto) 55 Lymph % (Auto) 25 [place] % (Auto) 15 H Eos % (Auto) 3 Baso % (Auto) 1 Neut # (Auto) 2.4 Lymph # (Auto) 1.1 [place] # (Auto) 0.7 Eos # (Auto) 0.1 Baso # (Auto) 0.1 Immature Gran # (Auto) 0.02 H Absolute Nucleated RBC 0.02 H Immature Gran % 1 H Nucleated RBC % 1 H VBG pH 7.36 VBG pCO2 48 VBG pO2 53 VBG O2 Sat (Ute) 86 L VBG Base Excess 2 Sodium 135 L Potassium 5.0 Chloride 93 L Carbon Dioxide 29.1 Anion Gap 13 BUN 49 H Creatinine 7.9 H* D Estim Creat Clear Calc 5.6 L eGFR 5 L* BUN/Creatinine Ratio 6 L Glucose 92 Calculated Osmolality 283 Lactic Acid 2.1 H Calcium 9.6 Corrected Calcium 9.6 Phosphorus 6.6 H Magnesium 2.8 H Total Bilirubin 0.3 AST 30 ALT 8 L Alkaline Phosphatase 77 Total Protein 7.4 Albumin 4.6 Globulin 2.8 Albumin/Globulin Ratio 1.6 Procalcitonin 0.44 Hepatitis A IgM Ab Non Reactive Hep Bs Antigen Non Reactive Hep Bs Antibody Reactive (Immune) Hep B Core IgM Ab Non Reactive Hepatitis C Antibody Reactive A 09/12/24 09:25 WBC RBC Hgb Hct MCV MCH MCHC RDW Std Deviation Plt Count Neut % (Auto) Lymph % (Auto) [place] % (Auto) Eos % (Auto) Baso % (Auto) Neut # (Auto) Lymph # (Auto) [place] # (Auto) Eos # (Auto) Baso # (Auto) Immature Gran # (Auto) Absolute Nucleated RBC Immature Gran % Nucleated RBC % VBG pH VBG pCO2 VBG pO2 VBG O2 Sat (Ute) VBG Base Excess Sodium Potassium Chloride Carbon Dioxide Anion Gap BUN Creatinine Estim Creat Clear Calc eGFR BUN/Creatinine Ratio Glucose Calculated Osmolality Lactic Acid 1.3 Calcium Corrected Calcium Phosphorus Magnesium Total Bilirubin AST ALT Alkaline Phosphatase Total Protein Albumin Globulin Albumin/Globulin Ratio Procalcitonin Hepatitis A IgM Ab Hep Bs Antigen Hep Bs Antibody Hep B Core IgM Ab Hepatitis C Antibody ABG Interpretation ABG results: 09/12/24 05:25 VBG pH 7.36 VBG pCO2 48 VBG pO2 53 VBG Base Excess 2 Quality Measures Quality Measures none Advance care planning discussed with:: patient Assessment & Plan Assessment Current Active Medications: Generic Name Dose Route Start Last Admin Trade Name Freq PRN Reason Stop Dose Admin Acetaminophen 650 mg 09/10/24 02:16 09/10/24 03:03 Acetaminophen 325 Mg Tablet PO 10/10/24 02:15 650 mg Q6H PRN Administration Fever >100.4 or Pain 1-10 Amiodarone HCl 200 mg 09/11/24 21:00 09/12/24 08:38 Amiodarone Hcl 200 Mg Tablet PO 10/11/24 20:59 200 mg BID OLEG Administration Apixaban 2.5 mg 09/11/24 21:00 09/12/24 08:38 Apixaban 2.5 Mg Tablet PO 10/11/24 20:59 2.5 mg BID OLEG Administration Benzonatate 100 mg 09/11/24 14:00 09/12/24 05:14 Benzonatate 100 Mg Capsule PO 10/11/24 13:59 100 mg Q8HR OLEG Administration Protocol Hydroxyzine HCl 10 mg 09/12/24 14:35 Hydroxyzine Hcl 10 Mg Tablet PO 10/12/24 14:34 Q6HR PRN ANXIETY Ipratropium [place] 0.5 mg 09/10/24 02:16 Ipratropium Rt 0.5 Mg/ 2.5 Ml Nebu INH 10/10/24 06:59 Q6HRRT PRN Shortness of breath or wheezing Protocol Levalbuterol HCl 0.63 mg 09/10/24 02:16 Levalbuterol Rt 0.63 Mg/3 Ml Nebu INH 10/10/24 06:59 Q6HRRT PRN Shortness of breath or wheezing Protocol Lidocaine 1 patch 09/10/24 14:55 Lidocaine 5% 1 Patch TOP 10/10/24 14:54 DAILY PRN LOCALIZED PAIN Melatonin 3 mg 09/11/24 21:00 09/11/24 20:30 Melatonin 3 Mg Tablet PO 10/10/24 13:29 3 mg HS OLEG Administration Metoprolol Succinate 50 mg 09/10/24 21:00 09/12/24 08:37 Metoprolol Succinate Xl 25 Mg Tabcr PO 10/10/24 20:59 50 mg BID OLEG Administration Ondansetron HCl 4 mg 09/10/24 02:16 Ondansetron Inj 2 Mg/Ml Inj 2 Ml IV 10/10/24 02:15 Q6H PRN NAUSEA OR VOMITING Protocol Pantoprazole Sodium 40 mg 09/11/24 20:40 09/12/24 08:38 Pantoprazole 40 Mg Tablet PO 10/11/24 20:39 40 mg QDAY OLEG Administration Sevelamer Carbonate 1,600 mg 09/10/24 17:30 09/12/24 08:35 Sevelamer Carbonate 800 Mg Tablet PO 10/10/24 17:29 Not Given TIDWM OLEG Plan Ms. Arroyo is a 69-year-old female with past medical history significant for end-stage renal disease on hemodialysis, diabetes myelitis, hypertension, hyperlipidemia, PAD who presented to the ED with cough and congestion as well as dizziness for the last few days. Cardiology was consulted for new onset A-fib with RVR. #HFpEF #A-fib with RVR-resolved #A-flutter, 3:1 #HTN #HLD Patient presented with symptoms of cough, congestion and dizziness for the last few days. Last Echo on 08/04/24 showed dilated right atrium and ventricle, mildly decreased systolic function, ejection fraction 60%, mitral annulus calcification with mitral valve thickening with moderate regurgitation of 2+,and moderate to severe tricuspid valve regurgitation. On physical exam, patient appears to be fluid overloaded. Chest x-ray also shows mild congestion bilaterally. Symptoms most likely precipitated by atrial fibrillation. Patient initially given IV Dilt push and started on Cardizem drip in the ED. [place] Vascore is 5. Patient's current contracting specialist continues to show atrial flutter 3:1, but not tachycardic anymore. - Continue with amiodarone 200 mg p.o. twice daily - Continue with metoprolol succinate 50 mg twice daily to help control her heart rate - Continue to follow dialysis schedule to remove fluid as tolerated - Continue with Eliquis 2.5 mg twice daily based on her renal failure and weight - Despite previous echo on 08/04/24, can order another echo to see current heart failure status #Acute hypoxic respiratory failure, secondary to fluid overload #ESRD on HD M/W/F #Upper respiratory infection #Cervical radiculopathy pain Rest of problems as per primary team Patient's plan and care discussed with my attending, Dr. Kyler Mary MD PGY-2
--- NOTE | 2024-09-12 15:10 | PC.NURSE ---
Patient transported to dialysis per Khari, web engineer.
--- NOTE | 2024-09-12 15:21 | PC.NURSE ---
Nelsy held related to patient refusing meals at this time. Patient states she is not hungry.
--- NOTE | 2024-09-12 19:20 | PC.NURSE ---
Dialysis completed for 3 hrs, tolerated well.? Pt awake, A/O x4, no complaint of pain.? Respiration even and unlabored? O2 sat 98% on O2 at 3L/min via humidifier NC.? Able to removed 1700 ml of fluid net.? Post tx BP 130/81, HR 91, Temp 97.4.?? Pt back in her rm.? Call light within reached. Pressure dressing on left lower arm AV fistula clean/dry/intact. No bleeding.? Pressure dressing to be remove around 2100.? Report given to Ame CASTILLO.
[2024-09-12] MEDS: MELATONIN 3 MG TABLET PO (20:59)
[2024-09-12] MEDS: hydrOXYzine HCL 10 MG TABLET PO (21:03)
[2024-09-13] VITALS (13 sets, daily range): BP systolic 103–129; BP diastolic 65–90; PULSE 87–990; RESP 11–24; TEMP 35.8–36.7; O2SAT 93–100; BMI 25.0; BMI 25.2
[2024-09-13] MEDS: BENZONATATE 100 MG CAPSULE PO ×3 (05:07→21:50)
[2024-09-13 05:55] LABS: Basophils % (Auto) 1 % (0-2.5); Eosinophils # (Auto) 0.3 Thou/mm3 (0.0-0.5); Eosinophils % (Auto) 8 % (0-10); Hematocrit 31.1 % (36.0-46.0); Immature Granulocytes % (Auto) 1 % (0-0); Immature Granulocytes Auto 0.02 Thou/mm3 (0.00-0.00); Lymphocytes % (Auto) 24 % (10-50); Mean Corpuscular HGB Conc 32.2 g/dl (31.0-37.0); Mean Corpuscular Hemoglobin 33.7 pg (25.0-35.0); Mean Corpuscular Volume 105 fL (80-100); Monocytes # (Auto) 0.6 Thou/mm3 (0.0-0.8); Monocytes % (Auto) 14 % (0-12); Neutrophils # (Auto) 2.2 Thou/mm3 (1.8-7.7); Neutrophils % (Auto) 54 % (37-80); Nucleated Red Blood Cell # 0.02 Thou/mm3 (0.00-0.00); Nucleated Red Blood Cell % 1 /100 WBC (0); Platelet Count 104 Thou/mm3 (140-440); RDW Standard Deviation 52.9 fL (36.4-46.3); Red Blood Count 2.97 Miln/mm3 (4.00-5.20); White Blood Count 4.1 Thou/mm3 (3.6-11.0)
[2024-09-13 06:43] LABS: Alanine Aminotransferase 8 U/L (10-49); Albumin, Serum 4.2 gm/dL (3.4-4.8); Albumin/Globulin Ratio 1.4 (1.2-2.2); Alkaline Phosphatase 93 U/L (46-116); Anion Gap 11 (7-16); Aspartate Amino Transferase 22 U/L (0-34); BUN/Creatinine Ratio 6 Ratio (12-20); Bilirubin,Total 0.3 mg/dL (0.3-1.2); Blood Urea Nitrogen 34 mg/dL (9-23); Carbon Dioxide 29.3 mMol/L (20.0-31.0); Chloride 94 mMol/L (98-107); Creatinine (Component) 6.1 mg/dL (0.6-1.3); Estimated Creatinine Clearance 7.3 mL/min (>60); Globulin 2.9 gm/dL (2.3-3.5); Glucose 118 mg/dL (74-106); Magnesium 2.4 mg/dL (1.6-2.6); Osmolality,Calculated 276 (275-295); Phosphorous 5.1 mg/dL (2.4-5.1); Potassium 3.8 mMol/L (3.4-5.1); Sodium 134 mMol/L (136-145); Total Protein 7.1 gm/dL (5.7-8.2); eGFR 7 See Note
--- NOTE | 2024-09-13 08:35 | PD.RESPRO ---
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 Cut her dialysis session short then and saw her primary care physician who gave her Claritin and cough syrup. Over the weekend she started having worsening shortness of breath, orthopnea, wheezing and cough that prompted an ED visit and noted to be in hypoxic respiratory failure. In ED, WBC 4.3, hemoglobin 10.2, platelets 97. Na 135, K 5.4, BUN 52, Cr 8.8, phos 9.6, LFTs normal, BNP 1286, troponin 0.02, albumin 4.8. CXR showed CHF pattern. EKG showed A-fib with RVR. Given IV diltiazem, oxygen, and breathing treatments. Admitted to telemetry for management of congestive heart failure, possible pneumonia//bronchitis. Nephrology consultation requested for need for emergency dialysis. Home medications: Calcium acetate 1334 mg p.o. TID w/ meals, carvedilol 6.25 mg PO BID, hydralazine 50 mg 1 tablet p.o. TID, nicardipine 20 mg 1 cap p.o. TID, Leonor-Shana 1 tab p.o. daily. 09/11: Patient seen and examined while undergoing dialysis. Blood pressure noted to be too low to continue and was only able to tolerate 1.5 hours. States that she still feels short of breath and does not think that she is fluid overloaded at this time. Otherwise, no acute overnight events reported. Denies chest discomfort or palpitations. 09/12: Seen and examined at bedside in telemetry. Currently on HFNC at 22 L/min, 100% FiO2 and saturating 99%. Per RT notes, saturation remained low on 15 L oxymask and patient desaturates precipitously with exertion. Repeat CXR did not show significant changes. Noted that she did not tolerate her last dialysis session well due to low blood pressure, so will augment settings for her session later today. However, plan to do so after CTA. Currently on PO amiodarone and recently started on eliquis. 01/30: Seen and examined at bedside in telemetry. No acute overnight events reported. No longer on HFNC and currently on 2 L humidified NC saturating 95% and CTA was negative for PE. She was able to undergo her dialysis session without issue. Plan for hemodiaysis again tomorrow per outpatient regimen. Exam Vital Signs Temp Pulse Resp BP Pulse Ox O2 Del Method O2 Flow Rate 97.1 F 87 20 129/83 99 Nasal Cannula 4 09/13/24 04:00 09/13/24 07:21 09/13/24 07:21 09/13/24 04:00 09/13/24 07:21 09/13/24 04:00 09/13/24 07:21 FiO2 100 09/12/24 12:00 Narrative Exam General: AOx3, fatigued, on HFNC HEENT: NC/AT, mucous membranes moist, bilateral sclera anicteric Cardiovascular: regular rate and rhythm, S1/S2 present, no murmurs appreciated Pulmonary: bilateral wheezing appreciated on auscultation Abdominal: soft, non-tender, non-distended, no rebound/guarding, normal bowel sounds present Musculoskeletal: normal ROM, no peripheral edema Skin: warm and dry, intact, no rashes Neuro: CN II-XII intact, no focal deficits Objective Labs 09/14/24 04:30 09/13/24 05:09 Labs: Laboratory Results - last 24 hr 09/12/24 09/12/24 09/13/24 08:52 09:25 05:09 WBC 4.1 RBC 2.97 L Hgb 10.0 L Hct 31.1 L MCV 105 H MCH 33.7 MCHC 32.2 RDW Std Deviation 52.9 H Plt Count 104 L D Neut % (Auto) 54 Lymph % (Auto) 24 [place] % (Auto) 14 H Eos % (Auto) 8 Baso % (Auto) 1 Neut # (Auto) 2.2 Lymph # (Auto) 1.0 [place] # (Auto) 0.6 Eos # (Auto) 0.3 Baso # (Auto) 0.0 Immature Gran # (Auto) 0.02 H Absolute Nucleated RBC 0.02 H Immature Gran % 1 H Nucleated RBC % 1 H Sodium 135 L 134 L Potassium 5.0 3.8 D Chloride 93 L 94 L Carbon Dioxide 29.1 29.3 Anion Gap 13 11 BUN 49 H 34 H Creatinine 7.9 H* D 6.1 H* D Estim Creat Clear Calc 5.6 L 7.3 L eGFR 5 L* 7 L* BUN/Creatinine Ratio 6 L 6 L Glucose 92 118 H Calculated Osmolality 283 276 Lactic Acid 1.3 Calcium 9.6 9.0 Corrected Calcium 9.6 9.0 Phosphorus 6.6 H 5.1 Magnesium 2.8 H 2.4 Total Bilirubin 0.3 0.3 AST 30 22 ALT 8 L 8 L Alkaline Phosphatase 77 93 D Total Protein 7.4 7.1 Albumin 4.6 4.2 Globulin 2.8 2.9 Albumin/Globulin Ratio 1.6 1.4 Procalcitonin 0.44 Hepatitis A IgM Ab Non Reactive Hep Bs Antigen Non Reactive Hep Bs Antibody Reactive (Immune) Hep B Core IgM Ab Non Reactive Hepatitis C Antibody Reactive A ABG Interpretation ABG results: 09/12/24 05:25 VBG pH 7.36 VBG pCO2 48 VBG pO2 53 VBG Base Excess 2 Quality Measures Quality Measures none Advance care planning discussed with:: patient Assessment & Plan Assessment Current Active Medications: Generic Name Dose Route Start Last Admin Trade Name Freq PRN Reason Stop Dose Admin Acetaminophen 650 mg 09/10/24 02:16 09/10/24 03:03 Acetaminophen 325 Mg Tablet PO 10/10/24 02:15 650 mg Q6H PRN Administration Fever >100.4 or Pain 1-10 Amiodarone HCl 200 mg 09/11/24 21:00 09/12/24 20:58 Amiodarone Hcl 200 Mg Tablet PO 10/11/24 20:59 200 mg BID OLEG Administration Apixaban 2.5 mg 09/11/24 21:00 09/12/24 20:58 Apixaban 2.5 Mg Tablet PO 10/11/24 20:59 2.5 mg BID OLEG Administration Benzonatate 100 mg 09/11/24 14:00 09/13/24 05:07 Benzonatate 100 Mg Capsule PO 10/11/24 13:59 100 mg Q8HR OLEG Administration Protocol Hydroxyzine HCl 10 mg 09/12/24 14:35 09/12/24 21:03 Hydroxyzine Hcl 10 Mg Tablet PO 10/12/24 14:34 10 mg Q6HR PRN Administration ANXIETY Ipratropium [place] 0.5 mg 09/10/24 02:16 Ipratropium Rt 0.5 Mg/ 2.5 Ml Nebu INH 10/10/24 06:59 Q6HRRT PRN Shortness of breath or wheezing Protocol Levalbuterol HCl 0.63 mg 09/10/24 02:16 Levalbuterol Rt 0.63 Mg/3 Ml Nebu INH 10/10/24 06:59 Q6HRRT PRN Shortness of breath or wheezing Protocol Lidocaine 1 patch 09/10/24 14:55 Lidocaine 5% 1 Patch TOP 10/10/24 14:54 DAILY PRN LOCALIZED PAIN Melatonin 3 mg 09/11/24 21:00 09/12/24 20:59 Melatonin 3 Mg Tablet PO 10/10/24 13:29 3 mg HS OLEG Administration Metoprolol Succinate 50 mg 09/10/24 21:00 09/12/24 20:57 Metoprolol Succinate Xl 25 Mg Tabcr PO 10/10/24 20:59 50 mg BID OLEG Administration Ondansetron HCl 4 mg 09/10/24 02:16 Ondansetron Inj 2 Mg/Ml Inj 2 Ml IV 10/10/24 02:15 Q6H PRN NAUSEA OR VOMITING Protocol Pantoprazole Sodium 40 mg 09/11/24 20:40 09/12/24 08:38 Pantoprazole 40 Mg Tablet PO 10/11/24 20:39 40 mg QDAY OLEG Administration Sevelamer Carbonate 1,600 mg 09/10/24 17:30 09/12/24 17:17 Sevelamer Carbonate 800 Mg Tablet PO 10/10/24 17:29 Not Given TIDWM OLEG Plan Anamika Arroyo is a 69-year-old female with history of end-stage renal disease on hemodialysis (M/W/F), hypertension, hyperlipidemia, diabetes mellitus, with history of 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 Nephrology consulted for ESRD on hemodialysis (M/W/F). #ESRD on hemodialysis (M/W/F) secondary to hypertensive nephrosclerosis #Hyperphosmatemia secondary to ESRD ? Hemodialysis tomorrow ? Obtain daily renal panel ? Renally dose medications ? Avoid nephrotoxic agents ? Restrict fluid intake ? Strict I's and O's ? Sevelamer 1600 mg 3 times daily with meals #A-fib vs flutter, follows Dr. Heard outpatient #Macrocytic anemia, presumed secondary to chronic disease/CKD #Thrombocytopenia, chronic #AHRF, secondary to CAP versus acutely decompensated heart failure #Community acquired pneumonia #Acutely decompensated heart failure versus pulmonary edema secondary to fluid noncompliant #Hypertension #Hyperlipidemia ? Continue management per primary team ----- Plan discussed with attending physician Dr. Cali Rosales MD PGY-1 Internal Medicine Attending Provider Attestation/Addendum Patient seen and examined with resident physician Dr. White. Note reviewed, agree with findings and recommendations. Patient currently seen in telemetry. Currently on 3 L oxygen. Much better. Emphasized fluid compliance and she is going to go 3 times weekly to complete her dialysis sessions. CTA chest showed no PE. Significant Vascular congestion noted. Next dialysis scheduled for tomorrow
[2024-09-13] MEDS: SEVELAMER CARBONATE 800 MG TABLET 1600 MG PO ×3 (09:57→18:23)
[2024-09-13] MEDS: AMIODARONE HCL 200 MG TABLET PO ×2 (09:57→20:55)
[2024-09-13] MEDS: METOPROLOL SUCCINATE XL 25 MG TABCR 50 MG PO ×2 (09:58→20:55)
[2024-09-13] MEDS: APIXABAN 2.5 MG TABLET PO ×2 (09:58→20:54)
[2024-09-13] MEDS: PANTOPRAZOLE 40 MG TABLET PO (09:58)
[2024-09-13] MEDS: IPRATROPIUM RT 0.5 MG/ 2.5 ML NEBU INH ×2 (11:08→20:30)
[2024-09-13] MEDS: ACETAMINOPHEN 325 MG TABLET 650 MG PO (12:10)
--- NOTE | 2024-09-13 13:16 | PC.SS ---
Update: Plan is d/c patient home tomorrow.
--- NOTE | 2024-09-13 13:49 | ESPR_ITS ---
<Statement entered by Franco Chávez MD - 09/16/24 14:20> I evaluated the patient along with the resident physician patient appears to be clinically stable not have any shortness of or chest pain okay to discharge home I will see her as an outpatient for follow-up agree with the treatment plan and recommendation as documented by Dr. Mary PGY2 Documentation for date of: 09/13/24 Subjective Subjective Interval history: Overnight, no acute events reported. Patient seen and examined at bedside. Patient's heart rate has been controlled in the 80s. Patient states that her productive cough is bringing up green phlegm. Patient is less short of breath and orthopneic. Patient also requested to continue with scheduled breathing treatments, as it has significantly helped with her breathing. Patient is scheduled for DC tomorrow. Exam Vital Signs Temp Pulse Resp BP Pulse Ox O2 Del Method O2 Flow Rate 97.3 F 88 20 109/65 93 L Nasal Cannula 2 09/13/24 11:59 09/13/24 11:59 09/13/24 11:59 09/13/24 11:59 09/13/24 11:59 09/13/24 11:59 09/13/24 11:59 FiO2 100 09/12/24 12:00 Narrative Exam General Appearance: Pt in mild acute distress sitting upright in bed on nasal cannula. HEENT: NC/AT, no scleral icterus, conjunctival pallor bilaterally, MMM Lungs: Crackles appreciated in the left upper lobe posteriorly otherwise clear to auscultation remaining lobes. CVS: Regular rate, S1/S2 heard, no murmurs or rubs appreciated, JVD present. ABD: Soft, non-tender, non-distended, BS + in all 4 quadrants EXT: no deformity/edema/lesions/cyanosis/clubbing, radial pulses 2+ BL, DP pulses 2 + BL SKIN: Skin exam normal without any rashes. Neuro: A&O x 3. No gross neurological deficits. Motor and sensory grossly intact in B/L UL and LL. Psych: Appropriate mood and affect Objective Labs 09/13/24 05:09 09/13/24 05:09 Labs: Laboratory Results - last 24 hr 09/13/24 05:09 WBC 4.1 RBC 2.97 L Hgb 10.0 L Hct 31.1 L MCV 105 H MCH 33.7 MCHC 32.2 RDW Std Deviation 52.9 H Plt Count 104 L D Neut % (Auto) 54 Lymph % (Auto) 24 [place] % (Auto) 14 H Eos % (Auto) 8 Baso % (Auto) 1 Neut # (Auto) 2.2 Lymph # (Auto) 1.0 [place] # (Auto) 0.6 Eos # (Auto) 0.3 Baso # (Auto) 0.0 Immature Gran # (Auto) 0.02 H Absolute Nucleated RBC 0.02 H Immature Gran % 1 H Nucleated RBC % 1 H Sodium 134 L Potassium 3.8 D Chloride 94 L Carbon Dioxide 29.3 Anion Gap 11 BUN 34 H Creatinine 6.1 H* D Estim Creat Clear Calc 7.3 L eGFR 7 L* BUN/Creatinine Ratio 6 L Glucose 118 H Calculated Osmolality 276 Calcium 9.0 Corrected Calcium 9.0 Phosphorus 5.1 Magnesium 2.4 Total Bilirubin 0.3 AST 22 ALT 8 L Alkaline Phosphatase 93 D Total Protein 7.1 Albumin 4.2 Globulin 2.9 Albumin/Globulin Ratio 1.4 ABG Interpretation ABG results: 09/12/24 05:25 VBG pH 7.36 VBG pCO2 48 VBG pO2 53 VBG Base Excess 2 Quality Measures Quality Measures none Advance care planning discussed with:: patient Assessment & Plan Assessment Current Active Medications: Generic Name Dose Route Start Last Admin Trade Name Freq PRN Reason Stop Dose Admin Acetaminophen 650 mg 09/10/24 02:16 09/13/24 12:10 Acetaminophen 325 Mg Tablet PO 10/10/24 02:15 650 mg Q6H PRN Administration Fever >100.4 or Pain 1-10 Amiodarone HCl 200 mg 09/11/24 21:00 09/13/24 09:57 Amiodarone Hcl 200 Mg Tablet PO 10/11/24 20:59 200 mg BID OLEG Administration Apixaban 2.5 mg 09/11/24 21:00 09/13/24 09:58 Apixaban 2.5 Mg Tablet PO 10/11/24 20:59 2.5 mg BID OLEG Administration Benzonatate 100 mg 09/11/24 14:00 09/13/24 13:40 Benzonatate 100 Mg Capsule PO 10/11/24 13:59 100 mg Q8HR OLEG Administration Protocol Hydroxyzine HCl 10 mg 09/12/24 14:35 09/12/24 21:03 Hydroxyzine Hcl 10 Mg Tablet PO 10/12/24 14:34 10 mg Q6HR PRN Administration ANXIETY Ipratropium [place] 0.5 mg 09/10/24 02:16 09/13/24 11:08 Ipratropium Rt 0.5 Mg/ 2.5 Ml Nebu INH 10/10/24 06:59 0.5 mg Q6HRRT PRN Administration Shortness of breath or wheezing Protocol Levalbuterol HCl 0.63 mg 09/10/24 02:16 Levalbuterol Rt 0.63 Mg/3 Ml Nebu INH 10/10/24 06:59 Q6HRRT PRN Shortness of breath or wheezing Protocol Lidocaine 1 patch 09/10/24 14:55 Lidocaine 5% 1 Patch TOP 10/10/24 14:54 DAILY PRN LOCALIZED PAIN Melatonin 3 mg 09/11/24 21:00 09/12/24 20:59 Melatonin 3 Mg Tablet PO 10/10/24 13:29 3 mg HS OLEG Administration Metoprolol Succinate 50 mg 09/10/24 21:00 09/13/24 09:58 Metoprolol Succinate Xl 25 Mg Tabcr PO 10/10/24 20:59 50 mg BID OLEG Administration Ondansetron HCl 4 mg 09/10/24 02:16 Ondansetron Inj 2 Mg/Ml Inj 2 Ml IV 10/10/24 02:15 Q6H PRN NAUSEA OR VOMITING Protocol Pantoprazole Sodium 40 mg 09/11/24 20:40 09/13/24 09:58 Pantoprazole 40 Mg Tablet PO 10/11/24 20:39 40 mg QDAY OLEG Administration Sevelamer Carbonate 1,600 mg 09/10/24 17:30 09/13/24 12:13 Sevelamer Carbonate 800 Mg Tablet PO 10/10/24 17:29 1,600 mg TIDWM OLEG Administration Plan Ms. Arroyo is a 69-year-old female with past medical history significant for end-stage renal disease on hemodialysis, diabetes myelitis, hypertension, hyperlipidemia, PAD who presented to the ED with cough and congestion as well as dizziness for the last few days. Cardiology was consulted for new onset A-fib with RVR. #HFpEF #A-fib with RVR-resolved #A-flutter, 3:1 #HTN #HLD Patient presented with symptoms of cough, congestion and dizziness for the last few days. Last Echo on 08/04/24 showed dilated right atrium and ventricle, mildly decreased systolic function, ejection fraction 60%, mitral annulus calcification with mitral valve thickening with moderate regurgitation of 2+,and moderate to severe tricuspid valve regurgitation. On physical exam, patient appears to be fluid overloaded. Chest x-ray also shows mild congestion bilaterally. Symptoms most likely precipitated by atrial fibrillation. Patient initially given IV Dilt push and started on Cardizem drip in the ED. [place] Vascore is 5. Patient's current color television console monitor continues to show atrial flutter 3:1, but not tachycardic anymore. Echo taken during his hospitaliztion suggests EF 60-65%, dilated RV, RVP 51mmHg, severe posterior MAC and moderate anterior MAC, and severe MR and TR. - Continue with amiodarone 200 mg p.o. twice daily - Continue with metoprolol succinate 50 mg twice daily to help control her heart rate - Continue to follow dialysis schedule to remove fluid as tolerated - Continue with Eliquis 2.5 mg twice daily based on her renal failure and weight #Acute hypoxic respiratory failure, secondary to fluid overload #ESRD on HD M// #Upper respiratory infection #Cervical radiculopathy pain Rest of problems as per primary team Patient's plan and care discussed with my attending, Dr. Kyler Mary MD PGY-2
--- NOTE | 2024-09-13 15:41 | ESPR_ITS ---
Documentation for date of: 09/13/24 Subjective Subjective Interval history: No acute overnight events. Will continue to treat cough symptomatically with BENZONATATE. Denies fever, chills, headaches, chest pain, sob, productive cough, GI or urinary symptoms. Exam Vital Signs Temp Pulse Resp BP Pulse Ox O2 Del Method O2 Flow Rate 97.3 F 88 20 109/65 93 L Nasal Cannula 2 09/13/24 11:59 09/13/24 12:00 09/13/24 11:59 09/13/24 11:59 09/13/24 11:59 09/13/24 11:59 09/13/24 11:59 FiO2 100 09/12/24 12:00 Narrative Exam General Appearance: Pt in mild acute distress sitting upright in bed. HEENT: NC/AT, no scleral icterus, conjunctival pallor bilaterally, MMM Lungs: Diminished lung sounds throughout all lung stephens. CVS: Irregularly, irregular, S1/S2 heard, no murmurs or rubs appreciated, JVD present. ABD: Soft, non-tender, non-distended, BS + in all 4 quadrants EXT: no deformity/edema/lesions/cyanosis/clubbing, radial pulses 2+ BL, DP pulses 2 + BL SKIN: Skin exam normal without any rashes. Neuro: A&O x 3. No gross neurological deficits. Motor and sensory grossly intact in B/L UL and LL. Psych: Appropriate mood and affect Objective Labs 09/13/24 05:09 09/13/24 05:09 Labs: Laboratory Results - last 24 hr 09/13/24 05:09 WBC 4.1 RBC 2.97 L Hgb 10.0 L Hct 31.1 L MCV 105 H MCH 33.7 MCHC 32.2 RDW Std Deviation 52.9 H Plt Count 104 L D Neut % (Auto) 54 Lymph % (Auto) 24 [place] % (Auto) 14 H Eos % (Auto) 8 Baso % (Auto) 1 Neut # (Auto) 2.2 Lymph # (Auto) 1.0 [place] # (Auto) 0.6 Eos # (Auto) 0.3 Baso # (Auto) 0.0 Immature Gran # (Auto) 0.02 H Absolute Nucleated RBC 0.02 H Immature Gran % 1 H Nucleated RBC % 1 H Sodium 134 L Potassium 3.8 D Chloride 94 L Carbon Dioxide 29.3 Anion Gap 11 BUN 34 H Creatinine 6.1 H* D Estim Creat Clear Calc 7.3 L eGFR 7 L* BUN/Creatinine Ratio 6 L Glucose 118 H Calculated Osmolality 276 Calcium 9.0 Corrected Calcium 9.0 Phosphorus 5.1 Magnesium 2.4 Total Bilirubin 0.3 AST 22 ALT 8 L Alkaline Phosphatase 93 D Total Protein 7.1 Albumin 4.2 Globulin 2.9 Albumin/Globulin Ratio 1.4 ABG Interpretation ABG results: 09/12/24 05:25 VBG pH 7.36 VBG pCO2 48 VBG pO2 53 VBG Base Excess 2 Quality Measures Quality Measures none Advance care planning discussed with:: patient Assessment & Plan Assessment Current Active Medications: Generic Name Dose Route Start Last Admin Trade Name Freq PRN Reason Stop Dose Admin Acetaminophen 650 mg 09/10/24 02:16 09/13/24 12:10 Acetaminophen 325 Mg Tablet PO 10/10/24 02:15 650 mg Q6H PRN Administration Fever >100.4 or Pain 1-10 Amiodarone HCl 200 mg 09/11/24 21:00 09/13/24 09:57 Amiodarone Hcl 200 Mg Tablet PO 10/11/24 20:59 200 mg BID OLEG Administration Apixaban 2.5 mg 09/11/24 21:00 09/13/24 09:58 Apixaban 2.5 Mg Tablet PO 10/11/24 20:59 2.5 mg BID OLEG Administration Benzonatate 100 mg 09/11/24 14:00 09/13/24 13:40 Benzonatate 100 Mg Capsule PO 10/11/24 13:59 100 mg Q8HR OLEG Administration Protocol Hydroxyzine HCl 10 mg 09/12/24 14:35 09/12/24 21:03 Hydroxyzine Hcl 10 Mg Tablet PO 10/12/24 14:34 10 mg Q6HR PRN Administration ANXIETY Ipratropium [place] 0.5 mg 09/10/24 02:16 09/13/24 11:08 Ipratropium Rt 0.5 Mg/ 2.5 Ml Nebu INH 10/10/24 06:59 0.5 mg Q6HRRT PRN Administration Shortness of breath or wheezing Protocol Levalbuterol HCl 0.63 mg 09/10/24 02:16 Levalbuterol Rt 0.63 Mg/3 Ml Nebu INH 10/10/24 06:59 Q6HRRT PRN Shortness of breath or wheezing Protocol Lidocaine 1 patch 09/10/24 14:55 Lidocaine 5% 1 Patch TOP 10/10/24 14:54 DAILY PRN LOCALIZED PAIN Melatonin 3 mg 09/11/24 21:00 09/12/24 20:59 Melatonin 3 Mg Tablet PO 10/10/24 13:29 3 mg HS OLEG Administration Metoprolol Succinate 50 mg 09/10/24 21:00 09/13/24 09:58 Metoprolol Succinate Xl 25 Mg Tabcr PO 10/10/24 20:59 50 mg BID OLEG Administration Ondansetron HCl 4 mg 09/10/24 02:16 Ondansetron Inj 2 Mg/Ml Inj 2 Ml IV 10/10/24 02:15 Q6H PRN NAUSEA OR VOMITING Protocol Pantoprazole Sodium 40 mg 09/11/24 20:40 09/13/24 09:58 Pantoprazole 40 Mg Tablet PO 10/11/24 20:39 40 mg QDAY OLEG Administration Sevelamer Carbonate 1,600 mg 09/10/24 17:30 09/13/24 12:13 Sevelamer Carbonate 800 Mg Tablet PO 10/10/24 17:29 1,600 mg TIDWM OLEG Administration Plan 69-year-old female with past medical history of ESRD on HD //, hypertension, hyperlipidemia, PAD who presented to the ED on 09/10/2024 with symptoms of dizziness worsened with positional changes after recent medication change. Patient developed new onset afib with RvR while in ED and was admitted for further management. Currently on AMIODARONE drip and will switch to PO after. HR controlled. Asymptomatic. Acute hypoxic respiratory failure, secondary to fluid overload ESRD on HD // Likely secondary to fluid overload in the setting of new onset afib and ESRD. Patient has URI symptoms but no evidence of pneumonia on CXR. Bilateral crackles present on exam likely secondary to afib episode combined with dialysis session that is due. Patient states she ended dialysis about 1 hr early on Tuesday. Last echo per patient normal. CXR showed mild congestion, no pneumonia. CTA was negative for PE or pneumonia, showed mild congestion. Likely volume overload. Anticipate this will improve with hemodialysis. ? Hemodialysis with nephrology, MWF - On Duonebs ? Oxygen PRN Presyncope New onset paroxysmal afib with RvR, rate controlled HTN Most likely cardiac arrhythmia versus less likely metabolic derangement 2/2 ESRD. Presenting with dizziness, no following loss of consciousness, reports recurrent palpitation in her chest. In ED found to have new A-fib with RVR with HR 143 on EKG with no acute ST changes. Denies chest pain or shortness of breath. Continued on DILTIAZEM drip. HR 100s, BP 170/90 after HD. CHADS-VASc is 3 points, anticoagulation may be recommended. Orthostatic vital negative. No focal neurological deficits, speech abnormalities or facial asymmetry. ? Continue METOPROLOL succinate 50 mg BID ? Continue AMIODARONE 200 BID after drip completion ? Continue ELIQUIS 2.5 mg BID ? Pending echocardiogram, can be done as an out patient basis if not done by tomorrow Anxiety Insomnia Has trouble sleeping 2/2 anxiety. Not tolerating ATIVAN or SEROQUEL. ? Continue HYDROXYZINE 10 mg q.6h. PRN Upper respiratory infection ruled out Per patient multiple sick household members. COVID, flu negative on admission. MRSA negative. CXR appears clear, pt not septic. ? Nebulizers ipratropium/levalbuterol ? Continue BENZONATATE Q8H OLEG Cervical radiculopathy pain Complains of chronic bilateral shoulder pain which followed a fall that occurred [address] cervical spine showed degenerative disc changes. No loss sensation or weakness in all extremities. ? Recommended outpatient follow-up. ? LIDOCAINE patches for pain Health maintenance Diet: Cardiac GI prophylaxis: Not indicated DVT prophylaxis: ELIQUIS Antibiotics: Not indicated CODE STATUS: Full code Disposition: Pending improvement in SOB The patient's management plan was discussed with my attending physician MD Thomas Hooper MD, PGY2 Attending Provider Attestation/Addendum I reviewed labs, imaging, EKG, home medications and prior available records. Face to face evaluation was performed by me. I have personally examined the patient and discussed assessment and plan with the IM team. I reviewed the resident note and agree with the plan with exceptions as below. Acute hypoxic respiratory failure Atrial fibrillation with RVR ESRD on hemodialysis Anxiety/anxiety Chronic pain Essential hypertension Oxygen requirements increased and she required high flow nasal cannula. Ordered CTA of the chest to rule out PE: Showed no acute PE but moderate CHF likely contributing to her shortness of breath. Discussed with nephrology: Keep the patient 1 more day. Hemodialysis tomorrow and discharge after if oxygen requirements and symptoms are improving. Added levalbuterol given the wheezing for possible asthma/COPD Discussed with cardiology: Continue p.o. amiodarone, p.o. metoprolol, and Eliquis 2.5 mg twice daily Hemodialysis per nephrology recommendations Ordered echocardiogram: Showed preserved EF of 60 to 65% and elevated RVSP of 51 Seroquel for insomnia/anxiety Pain medications as needed
--- NOTE | 2024-09-13 16:24 | PC.PT ---
PT eval only. Patient is I with transfers and ambulation without AD.
[2024-09-13] MEDS: MELATONIN 3 MG TABLET PO (20:54)
[2024-09-13] MEDS: hydrOXYzine HCL 10 MG TABLET PO (20:56)
[2024-09-14] VITALS (24 sets, daily range): BP systolic 99–136; BP diastolic 52–83; PULSE 85–97; RESP 15–24; TEMP 36.2–36.8; O2SAT 97–100; BMI 24.7
[2024-09-14] MEDS: ACETAMINOPHEN 325 MG TABLET 650 MG PO (00:01)
[2024-09-14 05:28] LABS: Basophils % (Auto) 1 % (0-2.5); Eosinophils # (Auto) 0.3 Thou/mm3 (0.0-0.5); Eosinophils % (Auto) 4 % (0-10); Hemoglobin 10.3 g/dL (12.0-16.0); Immature Granulocytes % (Auto) 0 % (0-0); Immature Granulocytes Auto 0.02 Thou/mm3 (0.00-0.00); Lymphocytes # (Auto) 1.2 Thou/mm3 (1.0-4.8); Lymphocytes % (Auto) 17 % (10-50); Mean Corpuscular HGB Conc 32.2 g/dl (31.0-37.0); Mean Corpuscular Hemoglobin 33.7 pg (25.0-35.0); Mean Corpuscular Volume 105 fL (80-100); Monocytes # (Auto) 0.7 Thou/mm3 (0.0-0.8); Monocytes % (Auto) 10 % (0-12); Neutrophils # (Auto) 4.9 Thou/mm3 (1.8-7.7); Neutrophils % (Auto) 69 % (37-80); Nucleated Red Blood Cell % 0 /100 WBC (0); Platelet Count 102 Thou/mm3 (140-440); RDW Standard Deviation 52.5 fL (36.4-46.3); Red Blood Count 3.06 Miln/mm3 (4.00-5.20)
[2024-09-14] MEDS: BENZONATATE 100 MG CAPSULE PO ×2 (05:49→13:49)
[2024-09-14 06:25] LABS: Alanine Aminotransferase 9 U/L (10-49); Albumin, Serum 4.3 gm/dL (3.4-4.8); Albumin/Globulin Ratio 1.4 (1.2-2.2); Alkaline Phosphatase 80 U/L (46-116); Anion Gap 11 (7-16); Aspartate Amino Transferase 20 U/L (0-34); BUN/Creatinine Ratio 6 Ratio (12-20); Bilirubin,Total 0.3 mg/dL (0.3-1.2); Blood Urea Nitrogen 48 mg/dL (9-23); Calcium 9.2 mg/dL (8.3-10.6); Calcium (Corrected) 9.2 mg/dL (8.5-10.1); Carbon Dioxide 28.9 mMol/L (20.0-31.0); Chloride 95 mMol/L (98-107); Creatinine (Component) 7.6 mg/dL (0.6-1.3); Estimated Creatinine Clearance 5.7 mL/min (>60); Glucose 109 mg/dL (74-106); Magnesium 2.5 mg/dL (1.6-2.6); Osmolality,Calculated 283 (275-295); Phosphorous 5.8 mg/dL (2.4-5.1); Potassium 4.1 mMol/L (3.4-5.1); Sodium 135 mMol/L (136-145); Total Protein 7.3 gm/dL (5.7-8.2); eGFR 5 See Note
[2024-09-14] MEDS: SEVELAMER CARBONATE 800 MG TABLET 1600 MG PO ×3 (07:55→17:29)
--- NOTE | 2024-09-14 08:00 | PC.NURSE ---
o2 sat on room air at rest 85%.applied o2 2 3 L,o2 sat up to 91%.
--- NOTE | 2024-09-14 08:25 | ESPR_ITS ---
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 Cut her dialysis session short then and saw her primary care physician who gave her Claritin and cough syrup. Over the weekend she started having worsening shortness of breath, orthopnea, wheezing and cough that prompted an ED visit and noted to be in hypoxic respiratory failure. In ED, WBC 4.3, hemoglobin 10.2, platelets 97. Na 135, K 5.4, BUN 52, Cr 8.8, phos 9.6, LFTs normal, BNP 1286, troponin 0.02, albumin 4.8. CXR showed CHF pattern. EKG showed A-fib with RVR. Given IV diltiazem, oxygen, and breathing treatments. Admitted to telemetry for management of congestive heart failure, possible pneumonia//bronchitis. Nephrology consultation requested for need for emergency dialysis. Home medications: Calcium acetate 1334 mg p.o. TID w/ meals, carvedilol 6.25 mg PO BID, hydralazine 50 mg 1 tablet p.o. TID, nicardipine 20 mg 1 cap p.o. TID, Leonor-Shana 1 tab p.o. daily. 09/11: Patient seen and examined while undergoing dialysis. Blood pressure noted to be too low to continue and was only able to tolerate 1.5 hours. States that she still feels short of breath and does not think that she is fluid overloaded at this time. Otherwise, no acute overnight events reported. Denies chest discomfort or palpitations. 09/12: Seen and examined at bedside in telemetry. Currently on HFNC at 22 L/min, 100% FiO2 and saturating 99%. Per RT notes, saturation remained low on 15 L oxymask and patient desaturates precipitously with exertion. Repeat CXR did not show significant changes. Noted that she did not tolerate her last dialysis session well due to low blood pressure, so will augment settings for her session later today. However, plan to do so after CTA. Currently on PO amiodarone and recently started on eliquis. 01/30: Seen and examined at bedside in telemetry. No acute overnight events reported. No longer on HFNC and currently on 2 L humidified NC saturating 95% and CTA was negative for PE. She was able to undergo her dialysis session without issue. Plan for hemodialysis again tomorrow per outpatient regimen. 09/14: Seen and examined at bedside in telemetry. No acute overnight events reported. Continues to be on 2 L humidified O2, saturating 100%. Plans for hemodialysis today. She can be discharged, likely with home O2, from nephrology standpoint. Exam Vital Signs Temp Pulse Resp BP Pulse Ox O2 Del Method O2 Flow Rate 98.2 F 86 18 113/69 100 Nasal Cannula 3 09/14/24 08:13 09/14/24 08:13 09/14/24 08:13 09/14/24 08:13 09/14/24 08:13 09/14/24 04:00 09/14/24 08:13 FiO2 100 09/12/24 12:00 Narrative Exam General: AOx3, fatigued, on 2 L NC HEENT: NC/AT, mucous membranes moist, bilateral sclera anicteric Cardiovascular: regular rate and rhythm, S1/S2 present, no murmurs appreciated Pulmonary: bibasilar crackles heard on auscultation Abdominal: soft, non-tender, non-distended, no rebound/guarding, normal bowel sounds present Musculoskeletal: normal ROM, no peripheral edema Skin: warm and dry, intact, no rashes Neuro: CN II-XII intact, no focal deficits Objective Labs 09/14/24 04:30 09/14/24 04:30 Labs: Laboratory Results - last 24 hr 09/14/24 04:30 WBC 7.0 D RBC 3.06 L Hgb 10.3 L Hct 32.0 L MCV 105 H MCH 33.7 MCHC 32.2 RDW Std Deviation 52.5 H Plt Count 102 L Neut % (Auto) 69 Lymph % (Auto) 17 [place] % (Auto) 10 Eos % (Auto) 4 Baso % (Auto) 1 Neut # (Auto) 4.9 Lymph # (Auto) 1.2 [place] # (Auto) 0.7 Eos # (Auto) 0.3 Baso # (Auto) 0.0 Immature Gran # (Auto) 0.02 H Absolute Nucleated RBC 0.00 Immature Gran % 0 Nucleated RBC % 0 Sodium 135 L Potassium 4.1 Chloride 95 L Carbon Dioxide 28.9 Anion Gap 11 BUN 48 H Creatinine 7.6 H* D Estim Creat Clear Calc 5.7 L eGFR 5 L* BUN/Creatinine Ratio 6 L Glucose 109 H Calculated Osmolality 283 Calcium 9.2 Corrected Calcium 9.2 Phosphorus 5.8 H Magnesium 2.5 Total Bilirubin 0.3 AST 20 ALT 9 L Alkaline Phosphatase 80 Total Protein 7.3 Albumin 4.3 Globulin 3.0 Albumin/Globulin Ratio 1.4 ABG Interpretation ABG results: 09/12/24 05:25 VBG pH 7.36 VBG pCO2 48 VBG pO2 53 VBG Base Excess 2 Quality Measures Quality Measures none Advance care planning discussed with:: patient Assessment & Plan Assessment Current Active Medications: Generic Name Dose Route Start Last Admin Trade Name Freq PRN Reason Stop Dose Admin Acetaminophen 650 mg 09/10/24 02:16 09/14/24 00:01 Acetaminophen 325 Mg Tablet PO 10/10/24 02:15 650 mg Q6H PRN Administration Fever >100.4 or Pain 1-10 Amiodarone HCl 200 mg 09/11/24 21:00 09/13/24 20:55 Amiodarone Hcl 200 Mg Tablet PO 10/11/24 20:59 200 mg BID OLEG Administration Apixaban 2.5 mg 09/11/24 21:00 09/13/24 20:54 Apixaban 2.5 Mg Tablet PO 10/11/24 20:59 2.5 mg BID OLEG Administration Benzonatate 100 mg 09/11/24 14:00 09/14/24 05:49 Benzonatate 100 Mg Capsule PO 10/11/24 13:59 100 mg Q8HR OLEG Administration Protocol Hydroxyzine HCl 10 mg 09/12/24 14:35 09/13/24 20:56 Hydroxyzine Hcl 10 Mg Tablet PO 10/12/24 14:34 10 mg Q6HR PRN Administration ANXIETY Ipratropium [place] 0.5 mg 09/10/24 02:16 09/13/24 20:30 Ipratropium Rt 0.5 Mg/ 2.5 Ml Nebu INH 10/10/24 06:59 0.5 mg Q6HRRT PRN Administration Shortness of breath or wheezing Protocol Levalbuterol HCl 0.63 mg 09/10/24 02:16 Levalbuterol Rt 0.63 Mg/3 Ml Nebu INH 10/10/24 06:59 Q6HRRT PRN Shortness of breath or wheezing Protocol Lidocaine 1 patch 09/10/24 14:55 Lidocaine 5% 1 Patch TOP 10/10/24 14:54 DAILY PRN LOCALIZED PAIN Melatonin 3 mg 09/11/24 21:00 09/13/24 20:54 Melatonin 3 Mg Tablet PO 10/10/24 13:29 3 mg HS OLEG Administration Metoprolol Succinate 50 mg 09/10/24 21:00 09/13/24 20:55 Metoprolol Succinate Xl 25 Mg Tabcr PO 10/10/24 20:59 50 mg BID OLEG Administration Ondansetron HCl 4 mg 09/10/24 02:16 Ondansetron Inj 2 Mg/Ml Inj 2 Ml IV 10/10/24 02:15 Q6H PRN NAUSEA OR VOMITING Protocol Pantoprazole Sodium 40 mg 09/11/24 20:40 09/13/24 09:58 Pantoprazole 40 Mg Tablet PO 10/11/24 20:39 40 mg QDAY OLEG Administration Sevelamer Carbonate 1,600 mg 09/10/24 17:30 09/14/24 07:55 Sevelamer Carbonate 800 Mg Tablet PO 10/10/24 17:29 1,600 mg TIDWM OLEG Administration Plan Anamika Arroyo is a 69-year-old female with history of end-stage renal disease on hemodialysis (M/W/F), hypertension, hyperlipidemia, diabetes mellitus, with history of 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 Nephrology consulted for ESRD on hemodialysis (M/W/F). #ESRD on hemodialysis (M/W/F) secondary to hypertensive nephrosclerosis #Hyperphosmatemia secondary to ESRD ? Hemodialysis today ? Obtain daily renal panel ? Renally dose medications ? Avoid nephrotoxic agents ? Restrict fluid intake ? Strict I's and O's ? Sevelamer 1600 mg 3 times daily with meals #A-fib vs flutter, follows Dr. Heard outpatient #Macrocytic anemia, presumed secondary to chronic disease/CKD #Thrombocytopenia, chronic #AHRF, secondary to CAP versus acutely decompensated heart failure #Community acquired pneumonia #Acutely decompensated heart failure versus pulmonary edema secondary to fluid noncompliant #Hypertension #Hyperlipidemia ? Continue management per primary team ----- Plan discussed with attending physician Dr. Cali Rosales MD PGY-1 Internal Medicine Attending Provider Attestation/Addendum Patient seen and examined with resident physician Dr. White. Note reviewed, agree with findings and recommendations. Patient currently seen on dialysis. Tolerating dialysis without any problems. Hemodialysis for 3 hours, 2K, ultrafiltration 2-3 L, Epogen 6000, no heparin ordered. Plan of care discussed with the dialysis nurse. Please see dialysis flowsheet for further details. Patient on nasal cannula 2 L/min Patient agreed to come 3 times weekly for 3 hours. Will not missed sessions. Emphasized compliance.
[2024-09-14] MEDS: ALBUMIN HUMAN 25% IVPB 25 GM/100 ML BTL IV (08:45)
--- NOTE | 2024-09-14 08:48 | PC.NURSE ---
BP TRENDING DOWN PT DENIES ALL S/S OF HYPOTENSION, WILL ADMIN PRN ALBUMIN PER MD ORDERS AND CONT. TO MONITOR
[2024-09-14] MEDS: AMIODARONE HCL 200 MG TABLET PO (12:49)
[2024-09-14] MEDS: METOPROLOL SUCCINATE XL 25 MG TABCR 50 MG PO (12:49)
[2024-09-14] MEDS: APIXABAN 2.5 MG TABLET PO (12:50)
[2024-09-14] MEDS: PANTOPRAZOLE 40 MG TABLET PO (12:51)
--- NOTE | 2024-09-14 13:39 | PC.SS ---
OXYGEN Pt is discharged in a chronic stable state and has been treated optimally and has other respiratory needs. Oxygen has been ordered due to Acute hypoxic respiratory failure.
--- NOTE | 2024-09-14 13:55 | PD.RESDS ---
Planned Discharge Date 09/14/24 DS: Providers Provider Date of admission: 09/10/24 02:16 Primary care physician: Indy Herr MD Admitting Provider: Nik Reddy MD Attending Provider on Admission: Hussain Milligan MD Consults: 09/10/24 02:22 Consult to Cardiology Stat Comment: Patient of Dr. Chávez Consulting Provider: Franco Chávez Instructions: New onset afib with RvR Consult to Nephrology Stat Comment: ESRD patient on dialysis Consulting Provider: Ken Leiva 09/13/24 07:49 Referral Physical Therapy Urgent Comment: Physician Instructions: Attending Provider on DC: Amirah Ugalde MD Discharging Provider: Amirah Ugalde MD DS: Diagnosis Problem List Completed Was Problem List Reviewed/Reconciled?: Yes Hospital Course Hospital Course Hospital course: The patient is a 69-year-old female with a past medical history of ESRD on HD M/W/F hypertension, hyperlipidemia, PAD presented to the ED on 09/10/2024 with symptoms of dizziness that started when she tried to get out of bed. Additionally, she reported some lightheadedness as well as headache and upper respiratory symptoms that lasted for about a week prior to presentation. In the ED, labs are significant for chronic microcytic anemia, ESRD range BUN and creatinine. She was also noted to have A-fib with RVR, rate of 143 that had not been seen on prior EKGs. Chest x-ray showed mild vascular congestion. Patient was admitted for management of acute hypoxic respiratory failure secondary to fluid overload and new onset A-fib with RVR. She was started initially on diltiazem drip after she had an converted with a one-time dose of IV Dilt. Cardiology was consulted and recommended for patient's to be started on amiodarone protocol, transition to amiodarone p.o. as well as metoprolol succinate and Eliquis 2.5 mg twice daily. Echocardiogram was ordered, which showed ejection fraction of 60 to 65% and moderate to severe MR. Nephrology was also consulted and the patient had sessions of dialysis while in the hospital. Today, she is clinically and hemodynamically stable and has been cleared for discharge by senior escrow officer and elevator repairer. Patient is being discharged home on amiodarone, Eliquis and metoprolol. As her syncope is also suspected to be a function of multiple antihypertensives, carvedilol hydralazine and nicardipine were discontinued. She is recommended to follow-up with PCP within 1 week of discharge as well as senior escrow officer within 2 weeks of discharge. All questions and concerns were addressed. #Acute hypoxic respiratory failure, secondary to fluid overload #ESRD on HD M/W/F #Presyncope #New onset paroxysmal A-fib with RVR #Hypertension #Respiratory tract infection Case was discussed with Dr Fernández PGY-2 and attending physician, Dr Pedro Ugalde MD PGY-1 Senior Resident Attestation: I discussed with and supervised the agriculture intern physician involved in the care of this patient. I personally saw and examined the patient and discussed the assessment and plan with the entire medicine team, including my attending. I agree with the discharge plan as documented above. Thomas Fernández MD PGY2 Internal Medicine Status at Discharge Overall status at discharge: patient is back to baseline Time Spent with Patient Time attestation: Total time spent providing and/or coordinating discharge services: more than 30 minutes Exam Vital Signs Temp Pulse Resp BP Pulse Ox O2 Del Method O2 Flow Rate 97.2 F 92 18 123/83 98 Nasal Cannula 2 09/14/24 12:26 09/14/24 12:49 09/14/24 12:09/14/24 12:49 09/14/24 12:09/14/24 12:09/14/24 12:26 FiO2 100 09/12/24 12:00 Narrative Exam General Appearance: Pt in mild acute distress sitting upright in bed HEENT: NC/AT, no scleral icterus, conjunctival pallor bilaterally, MMM Lungs: Crackles appreciated in the left upper lobe posteriorly otherwise clear to auscultation remaining lobes. CVS: Regular rate, S1/S2 heard, no murmurs or rubs appreciated, JVD present. ABD: Soft, non-tender, non-distended, BS + in all 4 quadrants EXT: no deformity/edema/lesions/cyanosis/clubbing, radial pulses 2+ BL, DP pulses 2 + BL SKIN: Skin exam normal without any rashes. Neuro: A&O x 3. No gross neurological deficits. Motor and sensory grossly intact in B/L UL and LL. Psych: Appropriate mood and affect Discharge Plan Plan Patient Disposition: HOME (Self Care) Care Plan Goals: Please follow-up with your PCP within 1 week of discharge. Follow-up outpatient for chronic hepatitis C infection. Please follow-up with senior escrow officer Dr. Chávez within 1 to 2-week of discharge You have been started on: -Amiodarone 200 Mg twice daily -Eliquis 2.5 Mg twice daily -Metoprolol succinate 50 Mg twice daily We have discontinued carvedilol, hydralazine and nicardipine Continue taking all other medicines as prescribed -Recommended to return back to emergency department if your symptoms persists or worsens Prescriptions/Referrals Prescriptions/Med Rec: New amiodarone 200 mg Tablet 200 mg PO BID 30 Days Qty: 60 0RF Eliquis 2.5 mg Tablet 2.5 mg PO BID 30 Days Qty: 60 0RF metoprolol succinate [Toprol XL] 50 mg tablet extended release 24 hr 50 mg PO BID Qty: 60 2RF Continued Leonor-Shana 0.8 mg tablet 1 tab PO QDAY Patient Comments: TAKE 1 TABLET BY MOUTH DAILY calcium acetate 667 mg Tablet 1,334 mg PO TIDWM Discontinued nicardipine 20 mg capsule 1 cap PO TID hydralazine 50 mg tablet 1 tab PO TID Patient Comments: TAKE 1 TABLET BY MOUTH THREE TIMES DAILY carvedilol [Coreg] 6.25 mg Tablet 6.25 mg PO BID Rx Instructions: must administer with a meal/food Referrals: Indy Herr MD [Primary Care Provider] - Patient/Caregiver Discharge Instructions Discharge Activity: activity as tolerated Education Materials: AFL/Afib Print Language: Turkish Stand Alone Forms: [facility] Award Info., Patient Portal Info Letter Discharge Order Discharge Orders: Discharge (Routine); Ordered 09/14/24 Ordered By: Thomas Fernández Quality Discharge Quality Measures VTE prophylaxis
[2024-09-14] MEDS: LEVALBUTEROL RT 0.63 MG/3 ML NEBU INH (14:26)
[2024-09-14] MEDS: IPRATROPIUM RT 0.5 MG/ 2.5 ML NEBU INH (14:26)
--- NOTE | 2024-09-14 14:56 | PC.SS ---
DME referral submitted on [facility] [place] for oxygen. No preferred vendor identified awaiting responses.
== END 2024-09-14 18:39 | disposition home or self-care (01) | DRG 308 ==
LOC: SERX 09-10 00:33 → SERHOLD 09-10 02:32 → S2NX 09-10 21:01
PROVIDERS: Internal Medicine; Nurse Practitioner Family; Student in an Organized Health Care Education/Training Program; Admitting Provider Internal Medicine; Emergency Provider Emergency Medicine; PCP Family Medicine; Visit Provider Student in an Organized Health Care Education/Training Program
DX: I48.0 Paroxysmal atrial fibrillation (principal); J18.9 Pneumonia, unspecified organism; N18.6 End stage renal disease; J96.01 Acute respiratory failure with hypoxia; I13.2 Hypertensive heart and chronic kidney disease with heart failure and with stage 5 chronic kidney disease, or end stage renal disease; I50.30 Unspecified diastolic (congestive) heart failure; E78.5 Hyperlipidemia, unspecified; E11.22 Type 2 diabetes mellitus with diabetic chronic kidney disease; Z99.2 Dependence on renal dialysis; J06.9 Acute upper respiratory infection, unspecified; D53.9 Nutritional anemia, unspecified; D69.6 Thrombocytopenia, unspecified; M54.12 Radiculopathy, cervical region; G47.00 Insomnia, unspecified; F41.9 Anxiety disorder, unspecified; I48.92 Unspecified atrial flutter; M25.511 Pain in right shoulder; M25.512 Pain in left shoulder; G89.29 Other chronic pain
CPT/HCPCS: 36415; 36600; 71045; 71046; 71275; 80053; 80069; 80074; 81001; 82803; 83036; 83605; 83735; 83880; 84100; 84145; 84484; 85025; 86706; 87400; 87811; 93005; 93306; 94640; 94667; 96372; 97162; 99291; A4649; J0283; J1643; J1940; J3490; P9047; Q9967; A9270

== ENCOUNTER → 2024-12-06 | Outpatient (CLI) | payer MEDICARE, BC, SELFPAY ==
[2024-12-06 11:42] LABS: Basophils # (Auto) 0.1 Thou/mm3 (0.0-0.2); Basophils % (Auto) 1 % (0-2.5); Eosinophils # (Auto) 0.3 Thou/mm3 (0.0-0.5); Eosinophils % (Auto) 6 % (0-10); Hematocrit 39.6 % (36.0-46.0); Hemoglobin 12.9 g/dL (12.0-16.0); Immature Granulocytes % (Auto) 1 % (0-0); Immature Granulocytes Auto 0.04 Thou/mm3 (0.00-0.00); Lymphocytes # (Auto) 1.2 Thou/mm3 (1.0-4.8); Lymphocytes % (Auto) 24 % (10-50); Mean Corpuscular HGB Conc 32.6 g/dl (31.0-37.0); Mean Corpuscular Hemoglobin 32.9 pg (25.0-35.0); Mean Corpuscular Volume 101 fL (80-100); Monocytes # (Auto) 0.7 Thou/mm3 (0.0-0.8); Monocytes % (Auto) 13 % (0-12); Neutrophils # (Auto) 2.7 Thou/mm3 (1.8-7.7); Neutrophils % (Auto) 54 % (37-80); Nucleated Red Blood Cell % 0 /100 WBC (0); Platelet Count 123 Thou/mm3 (140-440); RDW Standard Deviation 52.8 fL (36.4-46.3); Red Blood Count 3.92 Miln/mm3 (4.00-5.20)
[2024-12-06 11:52] LABS: Alanine Aminotransferase 15 U/L (10-49); Albumin, Serum 4.7 gm/dL (3.4-4.8); Albumin/Globulin Ratio 1.3 (1.2-2.2); Alkaline Phosphatase 155 U/L (46-116); Anion Gap 13 (7-16); Aspartate Amino Transferase 41 U/L (0-34); BUN/Creatinine Ratio 8 Ratio (12-20); Bilirubin,Total 0.5 mg/dL (0.3-1.2); Blood Urea Nitrogen 65 mg/dL (9-23); Calcium 9.7 mg/dL (8.3-10.6); Calcium (Corrected) 9.7 mg/dL (8.5-10.1); Carbon Dioxide 28.4 mMol/L (20.0-31.0); Cardiac Risk Estimate 2.9 RATIO (3.7-5.6); Chloride 93 mMol/L (98-107); Cholesterol 175 mg/dL (132-200); Creatinine (Component) 8.5 mg/dL (0.6-1.3); Globulin 3.5 gm/dL (2.3-3.5); Glucose 92 mg/dL (74-106); HDL Cholesterol 61 mg/dL (40-60); LDL Cholesterol,Calculated 90 mg/dL (0-130); Magnesium 2.3 mg/dL (1.6-2.6); Osmolality,Calculated 286 (275-295); Phosphorous 8.5 mg/dL (2.4-5.1); Sodium 134 mMol/L (136-145); Total Protein 8.2 gm/dL (5.7-8.2); Triglycerides 119 mg/dL (30-150); Uric Acid 5.2 mg/dL (3.1-7.8); eGFR 5 See Note
== END | disposition home or self-care (01) ==
PROVIDERS: PCP Internal Medicine; Referring Provider Family Medicine; Visit Provider Family Medicine
DX: Z00.00 Encounter for general adult medical examination without abnormal findings (principal); B18.2 Chronic viral hepatitis C; E78.2 Mixed hyperlipidemia
CPT/HCPCS: 36415; 80053; 80061; 83735; 84100; 84550; 85025

== ENCOUNTER → 2024-12-25 | Outpatient (CLI) | payer MEDICARE, BC, SELFPAY ==
--- NOTE | 2024-12-25 11:15 | XR_ITS ---
Examination: Screening digital mammography, bilateral Computer aided detection 3-D breast Tomosynthesis, bilateral Date and time of exam: December 25, 2024 11:23 AM Compared to mammograms dating to January 09, 2009 Indication: Screening Technique: Nonmagnified MLO, CC views of the breasts to been obtained, reconstructed from 3-D Tomosynthesis images. R2 computer aided detection program utilized for evaluation of suspicious masses and/or abnormal calcifications. 3-D Tomosynthesis images obtained. Findings: Scattered areas of fibroglandular density Breast biopsy marker upper outer right breast Benign calcifications Impression: BI-RADS Category 0: Incomplete: Need additional imaging evaluation Recommend repeat right breast sonography to confirm stability of nodule right breast 10 to 11:00 position, measuring 2.4 x 2.8 cm on right breast sonogram 04/20/2024
== END | disposition home or self-care (01) ==
LOC: CDIM 11:15
PROVIDERS: Referring Provider Family Medicine; Visit Provider Family Medicine
DX: Z12.31 Encounter for screening mammogram for malignant neoplasm of breast (principal); N63.11 Unspecified lump in the right breast, upper outer quadrant
CPT/HCPCS: 77063; 77067

== ENCOUNTER 2025-01-28 09:54 | Emergency (ER) | payer MEDICARE, BC, SELFPAY ==
[2025-01-28 09:56] VITALS: BMI 24.7
[2025-01-28 10:12] VITALS: BP 101/66; PULSE 78; RESP 18; TEMP 36.8; O2SAT 95
--- NOTE | 2025-01-28 10:17 | XR_ITS ---
Examination: Shoulder,right, 3 views Technique: Shoulder AP internal rotation, AP external rotation, Y view shoulder, 3 views Exam date and time :January 28, 2025 1127 hours INDICATIONS: Patient fell today with injury to the shoulder, right shoulder pain. FINDINGS: Chronic changes distal right clavicle No shoulder fracture or dislocation Moderate narrowing glenohumeral joint Ribs appear intact IMPRESSION: No acute shoulder fracture
--- NOTE | 2025-01-28 10:17 | XR_ITS ---
Examination: PA lateral chest 2 views TECHNIQUE: Upright PA lateral chest 2 views Date and time: 09/30/2024 1129 hours Comparison September 11, 2024 INDICATIONS: Patient fell today with injury to the right chest, right chest pain FINDINGS: Moderate enlargement cardiac contour Mild pulmonary vascular redistribution. No pneumothorax. Clavicles ribs thoracic vertebral bodies appear intact IMPRESSION: Moderate enlargement cardiac contour No pneumothorax pulmonary contusion or hemothorax
--- NOTE | 2025-01-28 12:08 | PD.EDUPEX ---
Upper Extremity Injury RME/HPI General Chief Complaint: Fall Stated Complaint: FALL YESTERDAY; HIT R) SHOULDER; SENT BY DIALYSIS Time Seen by Provider: 01/28/25 10:09 Arrival date/time: 01/28/25 09:54 69-year-old female presents emergency department today with complaints of trip and fall patient reports that she accidentally hit her right shoulder and the right side of her chest when she did fall. Patient reports he is a dialysis patient and she was instructed to go to the ER for imaging to rule out any acute emergent findings Limitations: no limitations Related Data Home Medications ?Medication ?Instructions ?Recorded ?Confirmed calcium acetate 667 mg tablet 1,334 mg PO TIDWM 12/01/20 11/24/23 vitamin B complex-vitamin C-folic 1 tab PO QDAY 08/03/21 11/24/23 acid 0.8 mg tablet (Leonor-Shana) Previous Rx's ?Medication ?Instructions ?Recorded guaifenesin 100 mg/5 mL oral liquid 200 mg (10 mL) PO Q6H PRN cough 09/14/24 #473 mL metoprolol succinate 50 mg 50 mg PO BID #60 tabs 09/14/24 tablet,extended release 24 hr (Toprol XL) Review of Systems Review of Systems Systems Reviewed: All systems reviewed, normal except as documented Constitutional Constitutional: Reports system reviewed and no additional complaints, except as documented, Denies fever(s) and Denies headache(s) Eyes Eyes: Reports system reviewed and no additional complaints, except as documented and Denies blurry vision ENT Ears, Nose, Mouth, and Throat: Reports system reviewed and no additional complaints, except as documented, Denies headache(s), Denies nasal congestion and Denies nasal discharge Cardiovascular Cardiovascular: Reports system reviewed and no additional complaints, except as documented, Denies chest pain, Denies dyspnea and Reports other (Chest wall pain) Respiratory Respiratory: Reports system reviewed and no additional complaints, except as documented, Denies chest congestion, Denies cough and Denies dyspnea Gastrointestinal Gastrointestinal: Reports system reviewed and no additional complaints, except as documented and Denies abdominal pain Musculoskeletal Musculoskeletal: Reports system reviewed and no additional complaints, except as documented, Reports arthralgias (Right shoulder pain), Denies joint swelling and Denies limited range of motion Integumentary/Breasts Skin/Breast: Reports system reviewed and no additional complaints, except as documented and Denies rash Neurologic Neurologic: Reports system reviewed and no additional complaints, except as documented, Reports as per HPI and Denies headache(s) Past Medical History Past Medical History NEUROLOGIC: Negative Neurological Disorders, Cerebrovascular Accident, Transient Ischemic Attacks (TIA), Dementia, Alzheimer's Disease, Parkinson's Disease, Brain Tumor, Meningitis, Seizures, Epilepsy, Multiple Sclerosis, Cerebral Palsy, Amyotrophic Lateral Sclerosis (ALS/Arline Gehrig's), Guillain-[place] Syndrome, Spina Bifida, Paralysis, Peripheral Neuropathy, Turner's Palsy, Subdural Hematoma, Migraine, Head Trauma, Spinal Cord Injury or Traumatic Brain Injury CARDIAC: Positive Cardiac Disorders (Early CHF), Hypercholesterolemia, Hypertension and Hypotension; Negative Myocardial Infarction, Cardiac Arrhythmia, Atrial Fibrillation, Angina, Heart Murmur, Coronary Artery Disease, Atherosclerotic Heart Disease, Peripheral Vascular Disease, Aneurysm, Congestive Heart Failure, Congenital Heart Disease, Valvular Heart Disease, Rheumatic Fever, Cardiomyopathy, Edema, Pericarditis, Cellulitis, Deep Vein Thrombosis or Varicose Veins RESPIRATORY: Positive Asthma (On High-flow); Negative Chronic Obstructive Pulmonary Disease (COPD), Bronchitis, Emphysema, Pneumonia, Pulmonary Fibrosis, Cystic Fibrosis, Tuberculosis, Pulmonary Embolism, Pulmonary Edema or Sleep Apnea GASTROINTESTINAL: Negative Gastrointestinal Disorders, Cirrhosis, Pancreatitis, Celiac Disease, Gall Bladder Disease, Gastrointestinal Bleed, Esophageal Varices, Castelan's Esophagus, Colitis, Ulcerative Colitis, Diverticulitis, Diverticulosis, Ulcer, Irritable Bowel, Crohn's Disease, Obstructive Bowel, Hiatal Hernia, Hemorrhoids, Gastroesophageal Reflux Disease or Obesity GENITOURINARY: Positive Genitourinary Disorders, Renal Disease and Dialysis; Negative Kidney Stones, Polycystic Kidney Disease, Neurogenic Bladder, Inguinal Hernia or Benign Prostatic Hyperplasia REPRODUCTIVE: Positive Previous Pregnancies; Negative Endometriosis, Genital Herpes, Gonorrhea, Pelvic Inflammatory Disease, Syphilis or Uterine Prolapse MUSCULOSKELETAL: Positive Musculoskeletal Disorders and Gout; Negative Muscular Dystrophy, Myasthenia Gravis, Marfan's Syndrome, Arthritis, Rheumatoid Arthritis, Osteoporosis, Degenerative Disk Disease, Scoliosis, Carpal Tunnel Syndrome, Fibromyalgia, Fractures, Degenerative Joint Disease, Osteomyelitis or Poliovirus ENT: Negative Cataracts, Glaucoma, Blind, Retinal Detachment, Macular Degeneration, Ear Infection, Deafness, Head Trauma or Eye Prosthesis ENDOCRINE: Negative Endocrine Disorders, Diabetes Mellitus Type 1, Diabetes Mellitus Type 2, Hypoglycemia, Kamari's Syndrome, Hudson's Disease, Hyperthyroidism, Hypothyroidism, Parathyroid Disease, Pituitary Disease, Systemic Lupus Erythematosus, Syndrome of Inappropriate Antidiuretic Hormone (SIADH), Adrenal Disease or Graves' Disease HEMATOLOGIC: Positive Anemia; Negative Blood Disorders, Leukemia, Hemophilia, Thalassemia, Sickle Cell Disease or Clotting Problems PSYCHO/SOCIAL: Negative Psychiatric Problems, Schizophrenia, Recreational Drug Use, Bipolar Disorder, Depression, Anxiety, Behavior Problems, Self-Mutilation, Attention Deficit Disorder, Attention Deficit Hyperactivity Disorder, Depression, Post Traumatic Stress Disorder or Eating Disorder OTHER HISTORY: Positive Hospitalization and Blood Transfusions; Negative Autoimmune Disease, Autism, Falls, Blood Transfusion Reaction, Anesthesia Reactions, Organ Transplant or Cancer Family History FAMILY HISTORY: Positive Family Cardiac Disorders; Negative Family Psychiatric Problems, Family Respiratory Disorders, Family Gastrointestinal Problems, Family Cancer, Family Surgery or Family Anesthesia Reaction Surgical History SURGICAL: Positive Pacemaker, Eye Surgery and Section; Negative Cardiac Surgery, Open Heart Surgery, Coronary Artery Bypass Graft, Valve Replacement, Vascular Surgery, Coronary Stent, Cardiac Catheterization, Angiogram, Auto Implanted Cardiovert Defib, Carotid Endarterectomy, Endocrine Surgery, Thyroidectomy, Ear Surgery, Tympanostomy Tube, Nose Surgery, Oral Surgery, Tonsillectomy, Adenoidectomy, Cochlear Implant, Corneal Transplant, Throat Surgery, Abdominal Surgery, Tracheostomy, Gastric Bypass Surgery, Gastrostomy, Bowel Surgery, Nephrectomy, Transurethral Resection, Joint Replacement, Amputation, Open Reduction Internal Fixation, Arthroscopy, Neurologic Surgery, Brain Shunt, Mastectomy, Lumpectomy, Hysterectomy, Tubal Ligation or Organ Transplant Social History SMOKING STATUS: Never smoker SECOND HAND EXPOSURE: No SUBSTANCE USE: does not use ED Exam General Limitations: Present no limitations General appearance: Present alert and in no apparent distress Head Head exam: Present atraumatic, normocephalic and normal inspection Eye Eye exam: Present normal appearance, PERRL and EOMI; Absent conjunctival injection ENT ENT exam: Present normal exam, normal oropharynx and mucous membranes moist Neck Neck exam: Present normal inspection, full ROM and trachea midline Chest Chest inspection: Present normal inspection and symmetric chest wall rise Respiratory Respiratory exam: Present normal lung sounds bilaterally; Absent respiratory distress Cardiovascular Cardiovascular exam: Present regular rate, normal rhythm and normal heart sounds Abdominal Exam Abdominal exam: Present soft and normal bowel sounds; Absent distention, tenderness, guarding, rebound or rigidity Extremities Exam Extremities exam: Present normal inspection and full ROM Back Exam Back exam: Present normal inspection and full ROM Neurological Exam Neurological exam: Present alert, oriented X3, CN II-XII intact, normal gait and reflexes normal; Absent motor sensory deficit Psychiatric Psychiatric exam: Present normal affect and normal mood Skin Skin exam: Present warm, dry, intact and normal color; Absent rash Course Quality Measures none Orders Category Date Time Status XR chest 2V Stat Exams 01/28/25 10:17 Completed XR shoulder RT min 2V Stat Exams 01/28/25 10:17 Completed Vital Signs Vital signs: Vital Signs Temperature 98.2 F 01/28/25 10:12 Pulse Rate 78 01/28/25 10:12 Respiratory Rate 18 01/28/25 10:12 Blood Pressure 101/66 01/28/25 10:12 Pulse Oximetry (%) 95 01/28/25 10:12 Oxygen Delivery Method Room Air 01/28/25 10:12 Extremity Injury MDM Narrative MDM Narrative:: 69-year-old female presents emergency department today with complaints of trip and fall patient reports that she accidentally hit her right shoulder and the right side of her chest when she did fall. Patient reports he is a dialysis patient and she was instructed to go to the ER for imaging to rule out any acute emergent findings On exam patient well-appearing patient does not appear ill or toxic in no acute distress patient has tenderness right side of her chest as well as right shoulder no bruising swelling or ecchymosis noted Chest x-ray as well as right shoulder x-ray obtained no acute emergent findings noted Symptoms consistent with contusion Patient discharged home in no distress to follow-up with primary care doctor in the next 24 to 48 hours and for any worsening symptoms to return to the ER immediately Patient data External records reviewed:: [facility] previous records Clinical information provided by:: patient Social determinants that could affect healthcare access:: none Patient has the following chronic illnesses:: None How is presenting disease/condition affected by chronic disease/condition?: no chronic disease Evaluation data The following diagnostics were reviewed and interpreted by me:: radiology exam(s) Lab and/or radiology exams considered but not ordered:: Radiology obtain Interpretation Summary: Reviewed by me Medications / Prescriptions Medications or Prescriptions considered but not ordered:: Given Medication administrations:: Given Consultations Consultation(s) initiated? (list below): No Diagnosis Upper Extremity Injury Differential Diagnosis: other (Contusion of chest, rib fracture) Most likely diagnosis given after review of the tests above:: Contusion of chest Admission Indicated Admission indicated?: not indicated Admission Request Was there a request for admission?: No Disposition Plan Disposition Plan: Discharge Discharge Attestation Discharge Attestation: The patient and all family members were given an opportunity to ask questions and understood the discharge instructions. Discharge instructions specifically effects, indications for sooner follow up or return to the emergency department, and the expected course of current diagnosis. Patient condition: Stable Discharge Plan Plan Patient Disposition: HOME (Self Care) Discharge Disposition comment: Stable Prescriptions/Referrals Prescriptions/Med Rec: No Action Leonor-Shana 0.8 mg tablet 1 tab PO QDAY Patient Comments: TAKE 1 TABLET BY MOUTH DAILY calcium acetate 667 mg Tablet 1,334 mg PO TIDWM metoprolol succinate [Toprol XL] 50 mg tablet extended release 24 hr 50 mg PO BID Qty: 60 2RF guaifenesin 100 mg/5 mL liquid 200 mg PO Q6H MDD 30ml PRN (Reason: cough) Qty: 473 0RF Referrals: Indy Herr MD [Primary Care Provider] - In 1 week Problem List Clinical Impression: Chest wall contusion, Acute pain of right shoulder Patient/Caregiver Discharge Instructions Education Materials: ED Contusion, Rib Additional Instructions: Please follow up with your primary care doctor in the next 24-48hrs for any worsening symptoms return here immediately Print Language: Ghanaian Stand Alone Forms: Kanwal Award Info., Patient Portal Info Letter PA/[employer]OMMER[employer] 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
== END 2025-01-28 12:17 | disposition home or self-care (01) ==
PROVIDERS: Emergency Provider Family Medicine; PCP Family Medicine
DX: S20.219A Contusion of unspecified front wall of thorax, initial encounter (principal); S49.91XA Unspecified injury of right shoulder and upper arm, initial encounter; W01.0XXA Fall on same level from slipping, tripping and stumbling without subsequent striking against object, initial encounter
CPT/HCPCS: 71046; 73030; 99283

== ENCOUNTER → 2025-02-12 | Outpatient (CLI) | payer MEDICARE, BC, SELFPAY ==
--- NOTE | 2025-02-12 10:30 | XR_ITS ---
Examination: Breast ultrasound, unilateral, right complete Date and time of exam: February 12, 2025 1046 hours INDICATIONS: Right breast sonogram 04/20/2024 BI-RADS 4 suspicious nodule 10 to 11:00 position right breast 24 x 28 mm Technique: Real-time dent scale ultrasonographic imaging performed right breast including all 4 quadrants as well as nipple retroareolar and axillary region. Findings: 9:00 nodule indistinct margins, shadowing, 4.4 x 2.2 x 3.4 cm Right axillary lymph node 15 x 10 mm IMPRESSION: BI-RADS Category 4: Suspicious for malignancy Suspicious mass 9:00 position right breast, masses increased in size compared to prior study Biopsy for sampling rebiopsy of this nodule is needed to exclude breast carcinoma
== END | disposition home or self-care (01) ==
PROVIDERS: PCP Family Medicine; Referring Provider Family Medicine; Visit Provider Family Medicine
DX: N63.15 Unspecified lump in the right breast, overlapping quadrants (principal)
CPT/HCPCS: 76641

== ENCOUNTER → 2025-02-19 | Outpatient (CLI) | payer MEDICARE, BC, SELFPAY ==
[2025-02-18 09:42] LABS: Basophils # (Auto) 0.1 Thou/mm3 (0.0-0.2); Basophils % (Auto) 1 % (0-2.5); Eosinophils # (Auto) 0.2 Thou/mm3 (0.0-0.5); Eosinophils % (Auto) 4 % (0-10); Hematocrit 30.4 % (36.0-46.0); Hemoglobin 10.2 g/dL (12.0-16.0); Immature Granulocytes Auto 0.03 Thou/mm3 (0.00-0.00); Lymphocytes # (Auto) 1.1 Thou/mm3 (1.0-4.8); Lymphocytes % (Auto) 21 % (10-50); Mean Corpuscular HGB Conc 33.6 g/dl (31.0-37.0); Mean Corpuscular Hemoglobin 34.7 pg (25.0-35.0); Mean Corpuscular Volume 103 fL (80-100); Monocytes # (Auto) 0.5 Thou/mm3 (0.0-0.8); Monocytes % (Auto) 9 % (0-12); Neutrophils # (Auto) 3.2 Thou/mm3 (1.8-7.7); Neutrophils % (Auto) 64 % (37-80); Nucleated Red Blood Cell # 0.00 Thou/mm3 (0.00-0.00); Nucleated Red Blood Cell % 0 /100 WBC (0); Platelet Count 111 Thou/mm3 (140-440); RDW Standard Deviation 57.1 fL (36.4-46.3); Red Blood Count 2.94 Miln/mm3 (4.00-5.20); White Blood Count 5.0 Thou/mm3 (3.6-11.0)
[2025-02-18 10:18] LABS: INR 1.1 (0.9-1.3); Partial Thromboplastin Time 34.0 Seconds (22.0-36.0); Prothrombin Time 12.4 Seconds (9.0-12.2)
--- NOTE | 2025-02-19 10:30 | XR_ITS ---
Examinations: Ultrasound-guided percutaneous breast biopsy, right 9:00 nodule Right breast sonography limited INDICATIONS: Right breast sonogram February 12, 2025 BI-RADS 4 suspicious nodule 9:00 position right breast. Exam date and time: February 19, 2025 1041 hours. Informed consent provided. Technique: A timeout was completed verifying correct patient, procedure, site, positioning, and special equipment if applicable Informed consent provided. The patient was placed in a supine position for the breast biopsy. Sonographic images of the breast were performed for localization of the suspicious nodule The patient's breast was prepped and draped in sterile fashion. Maximum sterile barrier technique, hand hygiene, ultrasound sterile technique 1% lidocaine was used to anesthetize the skin and breast adjacent to the suspicious nodule. Utilizing ultrasonographic guidance, 8 core biopsies were obtained of the suspicious nodule utilizing an 18-gauge BioPince needle. The specimens appears satisfactory. US guided breast biopsy marker placement. Estimated blood loss 3 cc. The patient tolerated the procedure well and there were no complications. Impression: Successful ultrasound-guided percutaneous breast biopsy, right breast 9:00 nodule. Ultrasound guided breast biopsy marker placement.
== END | disposition home or self-care (01) ==
LOC: SDIM 10:32
PROVIDERS: Radiology Diagnostic Radiology; PCP Family Medicine; Referring Provider Family Medicine; Visit Provider Family Medicine
DX: D24.1 Benign neoplasm of right breast (principal); Z01.812 Encounter for preprocedural laboratory examination
CPT/HCPCS: 19083; 36415; 85025; 85610; 85730; A4648

== ENCOUNTER → 2025-03-21 | Outpatient (CLI) | payer MEDICARE, BC, SELFPAY ==
[2025-03-21 13:47] LABS: Alanine Aminotransferase 8 U/L (10-49); Albumin, Serum 4.1 gm/dL (3.4-4.8); Alkaline Phosphatase 95 U/L (46-116); Aspartate Amino Transferase 20 U/L (0-34); Bilirubin,Direct 0.2 mg/dL (0.0-0.3); Bilirubin,Total 0.4 mg/dL (0.3-1.2); Blood Urea Nitrogen 38 mg/dL (9-23); Creatinine (Component) 8.5 mg/dL (0.6-1.3); Total Protein 6.8 gm/dL (5.7-8.2); eGFR 5 See Note
[2025-03-21 14:52] LABS: Hepatitis A Antibody IgM Non Reactive (Non React); Hepatitis B Core Antibody IgM Non Reactive (Non React); Hepatitis B Surface Antigen Non Reactive (Non React); Hepatitis C Antibody Reactive (Non React)
== END | disposition home or self-care (01) ==
LOC: COPL 12:21
PROVIDERS: PCP Family Medicine; Referring Provider Student in an Organized Health Care Education/Training Program; Visit Provider Student in an Organized Health Care Education/Training Program
DX: B18.2 Chronic viral hepatitis C (principal); I72.4 Aneurysm of artery of lower extremity; N18.6 End stage renal disease
CPT/HCPCS: 36415; 80074; 80076; 82565; 84520

== ENCOUNTER → 2025-04-25 | Outpatient (CLI) | payer MEDICARE, BC, SELFPAY ==
[2025-04-25 11:24] LABS: Glucose Estimated Average 126 mg/dL (80-131); Hemoglobin A1C 6.0 % Hgb (4.8-6.0)
[2025-04-25 18:19] LABS: Hepatitis C Antibody Reactive (Non React)
== END | disposition home or self-care (01) ==
LOC: COPL 09:46
PROVIDERS: PCP Family Medicine; Referring Provider Family Medicine; Visit Provider Family Medicine
DX: B18.2 Chronic viral hepatitis C (principal); R73.09 Other abnormal glucose
CPT/HCPCS: 36415; 83036; 86803

== ENCOUNTER 2025-05-08 16:12 | Emergency (ER) | payer MEDICARE, BC, SELFPAY ==
[2025-05-08] VITALS (12 sets, daily range): BP systolic 92–162; BP diastolic 56–109; PULSE 100–197; RESP 18–19; TEMP 37.2–37.3; O2SAT 93–100; BMI 25.0
--- NOTE | 2025-05-08 16:44 | XR_ITS ---
Examination: CT chest with intravenous contrast CT abdomen with intravenous contrast CT pelvis with intravenous contrast 2-D coronal and sagittal reconstructions Time of exam: May 08, 2025, 1848 hrs. Indications: Ground-level fall today with into the chest, chest pain back pain CTDI: vol (mGy) : 10.8 DLP: (mGycm): 841 Technique: Multiple axial images of the chest, abdomen and pelvis with intravenous contrast, 3.0 mm slice thickness. Images obtained post intravenous injection Isovue 370 60 cc. 2-D sagittal and coronal reconstructions. Low dose protocols were performed. One or more of the following dose reduction techniques were used; automated exposure control, adjustment of the mA and/or KV according to patient size, use of iterative reconstruction technique. Findings: Thoracic aorta pulmonary arteries intact No hemopericardium No pneumothorax Mild left hemothorax Old appearing deformities of the manubrium and body of the sternum No thoracic vertebral body compression fracture Acute fractures left fourth, fifth, sixth, seventh ribs laterally Old right-sided rib fractures are Cirrhosis, liver irregular in contour. No liver splenic or renal laceration Atrophic kidneys with renal arterial calcifications and right renal calculi subcentimeter, no hydronephrosis Abdominal aorta intact, no free blood in the abdomen Negative for pneumoperitoneum Atrophic uterus Colonic diverticulosis Contracted urinary bladder Soft tissue contusion lateral to the left hip Lumbar vertebral bodies bones of the pelvis and hips appear intact Impression: Multiple left rib fractures, left fourth through seventh ribs with mild left hemothorax at this time No pneumothorax Thoracic aorta pulmonary arteries appear intact Cirrhosis No liver splenic or renal laceration Significantly atrophic kidneys Abdominal aorta intact No free blood in the abdomen or pelvis
--- NOTE | 2025-05-08 16:44 | XR_ITS ---
Examination: AP chest single view Technique one AP portable sitting chest single view Date and time: May 08, 2025, 1701 hrs., Comparison January 28, 2025 Indications: Patient fell today with injury of the chest, chest pain Findings: Mild CHF Moderate enlargement cardiac contour, prominent vascular congestion and perihilar edema. Left rib deformities poorly visualized, please see the humerus report Impression: Mild CHF No pneumothorax
--- NOTE | 2025-05-08 16:44 | XR_ITS ---
Examination: Humerus 2 views left Technique: Humerus, AP lateral 2 views Date and time of exam: May 08, 2025, 1659 hrs. Indications: Patient fell today with injury to the arm, left arm pain Findings: No shoulder fracture or dislocation Shaft of the humerus intact Acute fractures left third, fourth, fifth, sixth, seventh, eighth ribs in the midaxillary line Impression: Acute fractures left third through eighth ribs in the mid axillary line with mild offset
--- NOTE | 2025-05-08 16:44 | XR_ITS ---
Examination: CT thoracic spine, without contrast. 2-D sagittal reconstructions. 2-D coronal reconstructions. 3-D reconstructions. Date and time of exam:May 08, 2025, 1844 hrs. Indications: Ground-level fall today with injury to the mid back, mid back pain CTDI: vol (mGy):35.6 DLP: (mGycm):1279 Technique: Multiple 1.25 mm axial sections of the thoracic spine without intravenous contrast have been obtained. 2-D sagittal and coronal reconstructions have been obtained. 3-D reconstructions have been obtained. Low dose protocols were performed. One or more of the following dose reduction techniques were used; automated exposure control, adjustment of the mA and/or KV according to patient size, use of iterative reconstruction technique. Findings: Severe osteopenia No thoracic vertebral compression fracture Satisfactory alignment posterior spinous processes Acute fracture left posterior fourth fifth, sixth seventh ribs At least small left hemothorax No pneumothorax Impression: No thoracic vertebral body fracture Please see the chest abdomen pelvis report for description of left rib injuries
--- NOTE | 2025-05-08 16:44 | XR_ITS ---
Examination: CT brain head without contrast. 2-D sagittal coronal reconstructions Date and time of exam:May 08, 2025, 1829 hrs., Comparison November 24, 2023 Indications: Ground-level fall today with into the head, head pain. CTDI: vol (mGy):49.2. DLP: (mGycm):1040 Technique: Multiple CT axial sections of the brain have been obtained, 5 mm slice thickness. Contrast has not been administered. 2-D sagittal, coronal reconstructions have been obtained Low dose protocols were performed. One or more of the following dose reduction techniques were used; automated exposure control, adjustment of the mA and/or KV according to patient size, use of iterative reconstruction technique. Findings: No significant ventricular enlargement. Old infarct right cerebellar hemisphere, encephalomalacia left cerebellar hemisphere Intra-axial or extra-axial hemorrhage density is not seen. No mass effect or midline shift Basal cisterns are not remarkable. Fourth ventricle is midline. Left occipital craniotomy defect Impression: Negative for acute hemorrhage, mass effect or midline shift
--- NOTE | 2025-05-08 16:44 | XR_ITS ---
Examination: CT cervical spine without contrast 2-D sagittal reconstructions 2-D coronal reconstructions 3-D reconstructions. Exam date and time:May 08, 2025, 1829 hrs. Indications: Patient fell today with injury to the neck, neck pain CTDI:vol (mGy) 15.1 DLP: (mGycm) 313 Technique: Multiple 2 mm axial sections of the cervical spine have been obtained. The coronal and sagittal reconstructions have been obtained. 3-D reconstructions have been obtained. Low dose protocols were performed. One or more of the following dose reduction techniques were used; automated exposure control, adjustment of the mA and/or KV according to patient size, use of iterative reconstruction technique. Findings: Axial sections demonstrate intact base of the skull. C1 exhibit satisfactory relationship to the odontoid. No acute cervical vertebral body fracture seen. Alignment posterior spinous processes satisfactory. Impression: No acute cervical fracture.
--- NOTE | 2025-05-08 16:44 | XR_ITS ---
Examination: CT lumbar spine, without contrast. 2-D sagittal reconstructions. 2-D coronal reconstructions. 3-D reconstructions. Date and time of exam:May 08, 2025, 1844 hrs. Indications: Patient fell today with injury to the lower back, lower back pain CTDI: vol (mGy):42.8 DLP: (mGycm):1299 Technique: Multiple 1.25 mm axial sections of the lumbar spine without intravenous contrast have been obtained. 2-D sagittal and coronal reconstructions have been obtained. 3-D reconstructions have been obtained. Low dose protocols were performed. One or more of the following dose reduction techniques were used; automated exposure control, adjustment of the mA and/or KV according to patient size, use of iterative reconstruction technique. Findings: Severe osteopenia. Grade 1 anterolisthesis L4 on L5 No lumbar vertebral body compression fracture Lumbar pedicles, laminae, transverse and posterior spinous processes intact Visualized sacral segments intact Atrophic uterus L5-S1 8 mm central foraminal disc bulge producing mild left moderate right L5 ganglionic compression and displacing the S1 nerve roots L4-L5 8mm central lumbar disc bulge extending to the foraminal regions with severe bilateral L4 ganglionic compression More cephalad levels unremarkable for disc protrusion Impression: No acute lumbar fracture Significant acquired soft tissue spinal stenosis L5-S1 L4-L5 as above Consider elective MRI lumbar spine without contrast follow-up
[2025-05-08 17:03] LABS: Basophils # (Auto) 0.1 Thou/mm3 (0.0-0.2); Basophils % (Auto) 1 % (0-2.5); Eosinophils # (Auto) 0.1 Thou/mm3 (0.0-0.5); Eosinophils % (Auto) 2 % (0-10); Hematocrit 34.9 % (36.0-46.0); Hemoglobin 11.5 g/dL (12.0-16.0); Immature Granulocytes Auto 0.04 Thou/mm3 (0.00-0.00); Lymphocytes # (Auto) 0.9 Thou/mm3 (1.0-4.8); Lymphocytes % (Auto) 12 % (10-50); Mean Corpuscular HGB Conc 33.0 g/dl (31.0-37.0); Mean Corpuscular Hemoglobin 35.0 pg (25.0-35.0); Mean Corpuscular Volume 106 fL (80-100); Monocytes # (Auto) 0.8 Thou/mm3 (0.0-0.8); Monocytes % (Auto) 11 % (0-12); Neutrophils # (Auto) 5.4 Thou/mm3 (1.8-7.7); Neutrophils % (Auto) 73 % (37-80); Nucleated Red Blood Cell # 0.00 Thou/mm3 (0.00-0.00); Nucleated Red Blood Cell % 0 /100 WBC (0); Platelet Count 86 Thou/mm3 (140-440); RDW Standard Deviation 47.7 fL (36.4-46.3); Red Blood Count 3.29 Miln/mm3 (4.00-5.20); White Blood Count 7.4 Thou/mm3 (3.6-11.0)
[2025-05-08 17:19] LABS: INR 1.2 (0.9-1.3); Prothrombin Time 13.0 Seconds (9.0-12.2)
--- NOTE | 2025-05-08 17:21 | EDNOTE_ITS ---
ED Fall Injury RME/HPI General Chief Complaint: Fall Stated Complaint: LEFT FLANK PAIN Time Seen by Provider: 05/08/25 16:18 Arrival date/time: 05/08/25 16:12 Limitations: no limitations RME / HPI RME / HPI Narrative: 70 year old female with history of hypertension, ESRD on HD M/W/F, hyperlipidemia presents to the ED BIBA from home for evaluation of left flank and left rib cage pain following a ground-level mechanical fall today. Patient states she was walking when she misstepped, causing her to lose balance and fall onto her left side. Pain described as sharp in sensation, rating as severe. Per medics, on scene patient was unable to stand and walk to their gurney due to pain. Was given 17.5mg Ketamine with improvement. No head injury or LOC reported. Related Data Home Medications ?Medication ?Instructions ?Recorded ?Confirmed calcium acetate 667 mg tablet 1,334 mg PO TIDWM 11/24/23 vitamin B complex-vitamin C-folic 1 tab PO QDAY 11/24/23 acid 0.8 mg tablet (Leonor-Shana) Previous Rx's ?Medication ?Instructions ?Recorded guaifenesin 100 mg/5 mL oral liquid 200 mg (10 mL) PO Q6H PRN cough 09/14/24 #473 mL metoprolol succinate 50 mg 50 mg PO BID #60 tabs 09/14 tablet,extended release 24 hr (Toprol XL) Allergies Allergy/AdvReac Type Severity Reaction Status Date / Time plastic tape Allergy Intermediate Rash Uncoded 05/08/25 16:19 Review of Systems Review of Systems Systems Reviewed: All systems reviewed, normal except as documented Past Medical History Past Medical History CARDIAC: Positive Cardiac Disorders (Early CHF), Hypercholesterolemia, Hypertension and Hypotension RESPIRATORY: Positive Asthma (On High-flow) GENITOURINARY: Positive Genitourinary Disorders, Renal Disease and Dialysis REPRODUCTIVE: Positive Previous Pregnancies MUSCULOSKELETAL: Positive Musculoskeletal Disorders and Gout HEMATOLOGIC: Positive Anemia OTHER HISTORY: Positive Hospitalization and Blood Transfusions Family History FAMILY HISTORY: Positive Family Cardiac Disorders Surgical History SURGICAL: Positive Pacemaker, Eye Surgery and Section Social History SMOKING STATUS: Never smoker SECOND HAND EXPOSURE: No SUBSTANCE USE: does not use ED Exam General Limitations: Present no limitations General appearance: Present alert and in no apparent distress Head Head exam: Present atraumatic, normocephalic and other (No lesions appreciated to the head) Eye Eye exam: Present normal appearance, PERRL and EOMI ENT ENT exam: Present normal exam, normal oropharynx and mucous membranes moist Neck Neck exam: Present normal inspection, full ROM, trachea midline and other (Mild lateral neck pain, no midline tenderness ) Chest Chest inspection: Present symmetric chest wall rise and other (tenderness to the left rib cage ) Respiratory Respiratory exam: Present normal lung sounds bilaterally; Absent respiratory distress or wheezes Cardiovascular Cardiovascular exam: Present normal rhythm, tachycardia and normal heart sounds Abdominal Exam Abdominal exam: Present soft; Absent distention, tenderness or guarding Extremities Exam Extremities exam: Present other (tenderness to the left hip and left upper arm, no right arm pain, skin tear to the left forearm) Back Exam Back exam: Present normal inspection and full ROM Neurological Exam Neurological exam: Present alert, oriented X3 and CN II-XII intact Psychiatric Psychiatric exam: Present normal affect and normal mood Skin Skin exam: Present warm, dry, intact and normal color Course Quality Measures none Orders Category Date Time Status CT Screening NOW Care 05/08/25 16:45 Completed EKG (ED ONLY) *Do not use* NOW Care 05/08/25 19:[address] cervical spine wo con Stat Exams 05/08/25 16:[address] chest abdomen pelvis w Stat Exams 05/08/25 16:[address] head/brain wo con Stat Exams 05/08/25 16:[address] lumbar spine wo con Stat Exams 05/08/25 16:[address] thoracic spine wo con Stat Exams 05/08/25 16:44 Completed EKG (ED Only) Stat Exams 05/08/25 19:25 Draft XR chest 1V Stat Exams 05/08/25 16:44 Completed XR humerus LT MIN 2V Stat Exams 05/08/25 16:44 Completed XR pelvis 1-2V Stat Exams 05/08/25 18:24 Completed BMP [Basic Metabolic Panel] Stat Lab 05/08/25 21:54 Completed CBC Stat Lab 05/08/25 16:57 Completed CMP [Comprehensive Metabolic Panel] Stat Lab 05/08/25 16:57 Completed PT [Prothrombin Time with INR] Stat Lab 05/08/25 16:57 Completed ALBUTEROL RT 0.5ml [Proventil Rt 0.5ml] Med 05/08/25 19:25 Discontinued 15 mg INH X1 ONE Adenosine 6mg Inj [Adenocard Inj] Med 05/08/25 20:16 Discontinued 12 mg .ROUTE .STK-MED ONE Adenosine 6mg Inj [Adenocard Inj] Med 05/08/25 20:15 Discontinued 12 mg IVP X1 ONE Adenosine 6mg Inj [Adenocard Inj] Med 05/08/25 20:22 Discontinued 12 mg IVP X1 ONE Adenosine 6mg Inj [Adenocard Inj] Med 05/08/25 20:40 Discontinued 12 mg IVP X1 ONE Adenosine 6mg Inj [Adenocard Inj] Med 05/08/25 20:53 Discontinued 12 mg IVP X1 ONE Adenosine 6mg Inj [Adenocard Inj] Med 05/08/25 20:09 Discontinued 6 mg IVP X1 ONE Adenosine 6mg Inj [Adenocard Inj] Med 05/08/25 21:04 Discontinued 6 mg IVP X1 ONE Calcium Gluconate 10% Inj Med 05/08/25 19:45 Discontinued 1 gm IV X1 ONE Dextrose 50% Syr [D50w Syringe Abboject] Med 05/08/25 19:25 Discontinued 50 ml IVP X1 ONE Diltiazem Inj [Cardizem Inj] Med 05/08/25 21:16 Discontinued 20 mg IV X1 ONE HYDROmorphone INJ [Dilaudid Inj] Med 05/08/25 17:12 Discontinued 0.5 mg IVP X1 ONE HYDROmorphone INJ [Dilaudid Inj] Med 05/08/25 19:03 Discontinued 1 mg IVP X1 ONE Insulin Regular Med 05/08/25 19:25 Discontinued 5 unit IV X1 ONE Ondansetron Inj [Zofran Inj] Med 05/08/25 17:13 Discontinued 4 mg IVP X1 ONE Pantoprazole Inj [Protonix Inj] Med 05/09/25 01:03 Discontinued 40 mg IVP X1 ONE Sodium Bicarb 8.4% 50ml Vial* Med 05/08/25 19:27 Discontinued 50 meq IV X1 ONE Sodium Chloride Rt Micaela 0.9% [NS Rt Micaela 0.9%] Med 05/08/25 19:25 Discontinued 3 ml INH PRN PRN TET,DIP/PERT AC (Adult)-Tdap [Boostrix Adult (Tdap) Med 05/08/25 17:28 Discontinued Vacc] 0.5 ml IMI .ONCE ONE fentaNYL INJ [Sublimaze Inj] Med 05/08/25 21:41 Discontinued 100 mcg IM X1 ONE fentaNYL INJ [Sublimaze Inj] Med 05/08/25 20:24 Discontinued 100 mcg IVP X1 ONE fentaNYL INJ [Sublimaze Inj] Med 05/08/25 22:24 Discontinued 100 mcg IVP X1 ONE fentaNYL INJ [Sublimaze Inj] Med 05/09/25 00:20 Discontinued 100 mcg IVP X1 ONE fentaNYL INJ [Sublimaze Inj] Med 05/08/25 17:51 Discontinued 50 mcg IVP X1 ONE fentaNYL INJ [Sublimaze Inj] Med 05/08/25 19:07 Discontinued 50 mcg IVP X1 ONE Vital Signs Vital signs: Vital Signs Temperature 99.2 F 05/08/25 16:27 Pulse Rate 123 H 05/08/25 16:27 Respiratory Rate 18 05/08/25 16:27 Blood Pressure 131/76 H 05/08/25 16:27 Pulse Oximetry (%) 93 L 05/08/25 16:27 Oxygen Delivery Method Room Air 05/08/25 16:27 Pulse ox is 93% on room air which is low. Fall [facility] Narrative MDM Narrative:: Jacqueline Degroot am scribing for and in the presence of Dr. Mata. 1800: Patient signed out to Dr. James pending final disposition. Patient data External records reviewed:: [facility] previous records and EMS form Clinical information provided by:: patient and EMS Social determinants that could affect healthcare access:: none Patient has the following chronic illnesses:: hypertension, ESRD on HD M/W/F, hyperlipidemia How is presenting disease/condition affected by chronic disease/condition?: exacerbated by Evaluation data The following diagnostics were reviewed and interpreted by me:: lab results and radiology exam(s) Lab and/or radiology exams considered but not ordered:: None Interpretation Summary: See MDM Medications / Prescriptions Medications or Prescriptions considered but not ordered:: None Medication administrations:: Medication Administration History Discontinued Medications Adenosine (Adenosine Inj 3 Mg/Ml Vial) 6 mg IVP X1 ONE Stop: 05/08/25 20:10 Last Admin: 05/08/25 20:14 Dose: 6 mg Documented By: MITCH Adenosine (Adenosine Inj 3 Mg/Ml Vial) 12 mg IVP X1 ONE Stop: 05/08/25 20:16 Last Admin: 05/08/25 20:20 Dose: 12 mg Documented By: MITCH Adenosine (Adenosine Inj 3 Mg/Ml Vial) Confirm Administered Dose 12 mg .ROUTE .STK-MED ONE Stop: 05/08/25 20:17 Last Admin: 05/08/25 20:33 Dose: Not Given Documented By: MITCH Non-Admin Reason: Override Medication Adenosine (Adenosine Inj 3 Mg/Ml Vial) 12 mg IVP X1 ONE Stop: 05/08/25 20:23 Last Admin: 05/08/25 20:28 Dose: 12 mg Documented By: MITCH Adenosine (Adenosine Inj 3 Mg/Ml Vial) 12 mg IVP X1 ONE Stop: 05/08/25 20:41 Last Admin: 05/08/25 20:52 Dose: 12 mg Documented By: MITCH Adenosine (Adenosine Inj 3 Mg/Ml Vial) 12 mg IVP X1 ONE Stop: 05/08/25 20:54 Last Admin: 05/08/25 21:03 Dose: 12 mg Documented By: MITCH Adenosine (Adenosine Inj 3 Mg/Ml Vial) 6 mg IVP X1 ONE Stop: 05/08/25 21:05 Last Admin: 05/08/25 21:16 Dose: 6 mg Documented By: MITCH Albuterol (Albuterol Rt 2.5 Mg/0.5 Ml Nebu) 15 mg INH X1 ONE Stop: 05/08/25 19:26 Last Admin: 05/08/25 20:00 Dose: 15 mg Documented By: RUPAL Comments: per DR julianna richards with giving albuterol 15 mgs Calcium Gluconate (Calcium Gluconate 10% Inj 1 Gm/10 Ml Vial) 1 gm IV X1 ONE Stop: 05/08/25 19:46 Last Admin: 05/08/25 19:50 Dose: 1 gm Documented By: MITCH Dextrose (Dextrose 50%-Water Inj 50 Ml Syringe) 50 ml IVP X1 ONE Stop: 05/08/25 19:26 Last Admin: 05/08/25 19:58 Dose: 50 ml Documented By: MITCH Diltiazem HCl (Diltiazem Inj 5 Mg/Ml Vial 5 Ml) 20 mg IV X1 ONE Stop: 05/08/25 21:17 Last Admin: 05/08/25 21:24 Dose: 20 mg Documented By: MITCH Diphtheria/Tetanus/Acell Pertussis (Diphth,Pertuss(Acell),Tet Vac 0.5 Ml Syr- Adult) 0.5 ml IMi .ONCE ONE Stop: 05/08/25 17:29 Last Admin: 05/08/25 19:35 Dose: 0.5 ml Documented By: MITCH Fentanyl Citrate (Fentanyl Cit Inj 50 Mcg/Ml Amp 2ml) 50 mcg IVP X1 ONE Stop: 05/08/25 17:52 Last Admin: 05/08/25 18:07 Dose: 50 mcg Documented By: MITCH Fentanyl Citrate (Fentanyl Cit Inj 50 Mcg/Ml Amp 2ml) 50 mcg IVP X1 ONE Stop: 05/08/25 19:08 Last Admin: 05/08/25 19:29 Dose: 50 mcg Documented By: MITCH Comments: mar did not save, vial was disposed but was scanned when med administered. Fentanyl Citrate (Fentanyl Cit Inj 50 Mcg/Ml Amp 2ml) 100 mcg IVP X1 ONE Stop: 05/08/25 20:25 Last Admin: 05/08/25 20:32 Dose: 100 mcg Documented By: MITCH Fentanyl Citrate (Fentanyl Cit Inj 50 Mcg/Ml Amp 2ml) 100 mcg IM X1 ONE Stop: 05/08/25 21:42 Last Admin: 05/08/25 22:31 Dose: Not Given Documented By: MITCH Non-Admin Reason: Discontinued Fentanyl Citrate (Fentanyl Cit Inj 50 Mcg/Ml Amp 2ml) 100 mcg IVP X1 ONE Stop: 05/08/25 22:25 Last Admin: 05/08/25 22:34 Dose: 100 mcg Documented By: MITCH Fentanyl Citrate (Fentanyl Cit Inj 50 Mcg/Ml Amp 2ml) 100 mcg IVP X1 ONE Stop: 05/09/25 00:21 Last Admin: 05/09/25 00:55 Dose: 100 mcg Documented By: Hydromorphone HCl (Hydromorphone Inj 2 Mg/Ml Vial) 0.5 mg IVP X1 ONE Stop: 05/08/25 17:13 Last Admin: 05/08/25 17:30 Dose: 0.5 mg Documented By: MITCH Hydromorphone HCl (Hydromorphone Inj 2 Mg/Ml Vial) 1 mg IVP X1 ONE Stop: 05/08/25 19:04 Last Admin: 05/08/25 20:05 Dose: Not Given Documented By: MITCH Non-Admin Reason: Discontinued Insulin Human Regular (Insulin Hum Regular 1 Unit/0.01 Ml (Per Unit)) 5 unit IV X1 ONE Stop: 05/08/25 19:26 Last Admin: 05/08/25 19:52 Dose: 5 unit Documented By: MITCH Co-signed By: Ondansetron HCl (Ondansetron Inj 2 Mg/Ml Inj 2 Ml) 4 mg IVP X1 ONE; Protocol Stop: 05/08/25 17:14 Last Admin: 05/08/25 17:29 Dose: 4 mg Documented By: MITCH Pantoprazole Sodium (Pantoprazole Inj 40 Mg Vial) 40 mg IVP X1 ONE Stop: 05/09/25 01:04 Last Admin: 05/09/25 01:14 Dose: 40 mg Documented By: Sodium Bicarbonate (Sodium Bicarb Inj 8.4% 1 Meq/Ml 50 Ml Vial) 50 meq IV X1 ONE Stop: 05/08/25 19:28 Last Admin: 05/08/25 19:55 Dose: 50 meq Documented By: MITCH Sodium Chloride (Sodium Chloride Rt Micaela 0.9% 3 Ml Nebu) 3 ml INH PRN PRN PRN Reason: SOLN Stop: 06/07/25 19:24 Last Admin: 05/08/25 20:00 Dose: 3 ml Documented By: RUPAL See above Consultations Consultation(s) initiated? (list below): No Diagnosis Fall Differential Diagnosis: other (See MDM) Most likely diagnosis given after review of the tests above:: Fall injury Admission Indicated Admission indicated?: not indicated Explain why admission is indicated or not indicated:: Signed out to Dr. James pending final disposition. Admission Request Was there a request for admission?: No Disposition Plan Disposition Plan: other (specify) (Signed out to Dr. James ) Discharge Plan Plan Patient Disposition: [facility] Acute Care [facility] Pt Being Transferred to: [facility] Prescriptions/Referrals Prescriptions/Med Rec: No Action Leonor-Shana 0.8 mg tablet 1 tab PO QDAY Patient Comments: TAKE 1 TABLET BY MOUTH DAILY calcium acetate 667 mg Tablet 1,334 mg PO TIDWM metoprolol succinate [Toprol XL] 50 mg tablet extended release 24 hr 50 mg PO BID Qty: 60 2RF guaifenesin 100 mg/5 mL liquid 200 mg PO Q6H MDD 30ml PRN (Reason: cough) Qty: 473 0RF Referrals: Matthew Herr MD [Primary Care Provider, Family Practice] - In 1 week Problem List Clinical Impression: Left-sided chest wall pain Patient/Caregiver Discharge Instructions Print Language: Mohawk Stand Alone Forms: [employer] Award Info., Patient Portal Info Letter
[2025-05-08] MEDS: ONDANSETRON INJ 2 MG/ML INJ 2 ML 4 MG IVP (17:29)
[2025-05-08] MEDS: HYDROmorphone INJ 2 MG/ML VIAL 0.5 MG IVP (17:30)
[2025-05-08 17:38] LABS: Alanine Aminotransferase 11 U/L (10-49); Albumin, Serum 4.4 gm/dL (3.4-4.8); Albumin/Globulin Ratio 1.5 (1.2-2.2); Alkaline Phosphatase 102 U/L (46-116); Anion Gap 9 (7-16); Aspartate Amino Transferase 21 U/L (0-34); BUN/Creatinine Ratio 4 Ratio (12-20); Bilirubin,Total 0.4 mg/dL (0.3-1.2); Blood Urea Nitrogen 28 mg/dL (9-23); Calcium 8.6 mg/dL (8.3-10.6); Calcium (Corrected) 8.6 mg/dL (8.5-10.1); Carbon Dioxide 30.6 mMol/L (20.0-31.0); Chloride 96 mMol/L (98-107); Creatinine (Component) 7.5 mg/dL (0.6-1.3); Estimated Creatinine Clearance 5.9 mL/min (>60); Globulin 2.9 gm/dL (2.3-3.5); Glucose 154 mg/dL (74-106); Osmolality,Calculated 280 (275-295); Potassium 5.8 mMol/L (3.4-5.1); Sodium 136 mMol/L (136-145); Total Protein 7.3 gm/dL (5.7-8.2); eGFR 5 See Note
[2025-05-08] MEDS: fentaNYL CIT INJ 50 mCg/ML AMP 2ML IVP ×2 (18:07→19:29)
--- NOTE | 2025-05-08 18:24 | XR_ITS ---
Examination: AP pelvis single view Technique: AP portable supine pelvis single view Date and time: May 08, 2025, 1927 hrs. Indications: Patient fell today with into the pelvis, pelvic pain. Findings: Severe osteopenia No acute right or left hip fracture or dislocation Bones of the pelvis appear intact Impression: No acute hip or pelvic fracture Given the severe osteopenia, recommend 1-2 day follow-up AP pelvis as clinically warranted
--- NOTE | 2025-05-08 19:18 | PD.EDADDENDU ---
Emergency Room Addendum <Bouchra Mishra - Last Filed: 05/08/25 19:34> Addendum Narrative: 1800: Care assumed from Dr. Mata (emergency physician). Past medical, surgical, social and family history reviewed. Vitals and home medications reviewed. Results and treatment plan discussed. I will assume the care of the patient at this time and will follow the patient, pending CT, X-Ray, and final disposition. The following addendum documentation note is intended to reflect any pending information, findings, or radiology results not included in the patient?s initial chart by the previous shift scribe. RADIOLOGY T-Spine CT: Findings: Severe osteopenia No thoracic vertebral compression fracture Satisfactory alignment posterior spinous processes Acute fracture left posterior fourth fifth, sixth seventh ribs At least small left hemothorax No pneumothorax Impression: No thoracic vertebral body fracture Please see the chest abdomen pelvis report for description of left rib injuries L-Spine CT: Findings: Severe osteopenia. Grade 1 anterolisthesis L4 on L5 No lumbar vertebral body compression fracture Lumbar pedicles, laminae, transverse and posterior spinous processes intact Visualized sacral segments intact Atrophic uterus L5-S1 8 mm central foraminal disc bulge producing mild left moderate right L5 ganglionic compression and displacing the S1 nerve roots L4-L5 8mm central lumbar disc bulge extending to the foraminal regions with severe bilateral L4 ganglionic compression More cephalad levels unremarkable for disc protrusion Impression: No acute lumbar fracture Significant acquired soft tissue spinal stenosis L5-S1 L4-L5 as above Consider elective MRI lumbar spine without contrast follow-up C-Spine CT: Findings: Axial sections demonstrate intact base of the skull. C1 exhibit satisfactory relationship to the odontoid. No acute cervical vertebral body fracture seen. Alignment posterior spinous processes satisfactory. Impression: No acute cervical fracture. Head CT: Findings: No significant ventricular enlargement. Old infarct right cerebellar hemisphere, encephalomalacia left cerebellar hemisphere Intra-axial or extra-axial hemorrhage density is not seen. No mass effect or midline shift Basal cisterns are not remarkable. Fourth ventricle is midline. Left occipital craniotomy defect Impression: Negative for acute hemorrhage, mass effect or midline shift Chest/Abdomen/Pelvis CT: Findings: Thoracic aorta pulmonary arteries intact No hemopericardium No pneumothorax Mild left hemothorax Old appearing deformities of the manubrium and body of the sternum No thoracic vertebral body compression fracture Acute fractures left fourth, fifth, sixth, seventh ribs laterally Old right-sided rib fractures are Cirrhosis, liver irregular in contour. No liver splenic or renal laceration Atrophic kidneys with renal arterial calcifications and right renal calculi subcentimeter, no hydronephrosis Abdominal aorta intact, no free blood in the abdomen Negative for pneumoperitoneum Atrophic uterus Colonic diverticulosis Contracted urinary bladder Soft tissue contusion lateral to the left hip Lumbar vertebral bodies bones of the pelvis and hips appear intact Impression: Multiple left rib fractures, left fourth through seventh ribs with mild left hemothorax at this time No pneumothorax Thoracic aorta pulmonary arteries appear intact Cirrhosis No liver splenic or renal laceration Significantly atrophic kidneys Abdominal aorta intact No free blood in the abdomen or pelvis Humerus X-Ray: Findings: No shoulder fracture or dislocation Shaft of the humerus intact Acute fractures left third, fourth, fifth, sixth, seventh, eighth ribs in the midaxillary line Impression: Acute fractures left third through eighth ribs in the mid axillary line with mild offset Chest X-Ray: Findings: Mild CHF Moderate enlargement cardiac contour, prominent vascular congestion and perihilar edema. Left rib deformities poorly visualized, please see the humerus report Impression: Mild CHF No pneumothorax <Lei James, DO - Last Filed: 05/08/25 21:43> Addendum Narrative: 1800: Care assumed from Dr. Mata (emergency physician). Past medical, surgical, social and family history reviewed. Vitals and home medications reviewed. Results and treatment plan discussed. I will assume the care of the patient at this time and will follow the patient, pending CT, X-Ray, and final disposition. The following addendum documentation note is intended to reflect any pending information, findings, or radiology results not included in the patient?s initial chart by the previous shift scribe. RADIOLOGY T-Spine CT: Findings: Severe osteopenia No thoracic vertebral compression fracture Satisfactory alignment posterior spinous processes Acute fracture left posterior fourth fifth, sixth seventh ribs At least small left hemothorax No pneumothorax Impression: No thoracic vertebral body fracture Please see the chest abdomen pelvis report for description of left rib injuries L-Spine CT: Findings: Severe osteopenia. Grade 1 anterolisthesis L4 on L5 No lumbar vertebral body compression fracture Lumbar pedicles, laminae, transverse and posterior spinous processes intact Visualized sacral segments intact Atrophic uterus L5-S1 8 mm central foraminal disc bulge producing mild left moderate right L5 ganglionic compression and displacing the S1 nerve roots L4-L5 8mm central lumbar disc bulge extending to the foraminal regions with severe bilateral L4 ganglionic compression More cephalad levels unremarkable for disc protrusion Impression: No acute lumbar fracture Significant acquired soft tissue spinal stenosis L5-S1 L4-L5 as above Consider elective MRI lumbar spine without contrast follow-up C-Spine CT: Findings: Axial sections demonstrate intact base of the skull. C1 exhibit satisfactory relationship to the odontoid. No acute cervical vertebral body fracture seen. Alignment posterior spinous processes satisfactory. Impression: No acute cervical fracture. Head CT: Findings: No significant ventricular enlargement. Old infarct right cerebellar hemisphere, encephalomalacia left cerebellar hemisphere Intra-axial or extra-axial hemorrhage density is not seen. No mass effect or midline shift Basal cisterns are not remarkable. Fourth ventricle is midline. Left occipital craniotomy defect Impression: Negative for acute hemorrhage, mass effect or midline shift Chest/Abdomen/Pelvis CT: Findings: Thoracic aorta pulmonary arteries intact No hemopericardium No pneumothorax Mild left hemothorax Old appearing deformities of the manubrium and body of the sternum No thoracic vertebral body compression fracture Acute fractures left fourth, fifth, sixth, seventh ribs laterally Old right-sided rib fractures are Cirrhosis, liver irregular in contour. No liver splenic or renal laceration Atrophic kidneys with renal arterial calcifications and right renal calculi subcentimeter, no hydronephrosis Abdominal aorta intact, no free blood in the abdomen Negative for pneumoperitoneum Atrophic uterus Colonic diverticulosis Contracted urinary bladder Soft tissue contusion lateral to the left hip Lumbar vertebral bodies bones of the pelvis and hips appear intact Impression: Multiple left rib fractures, left fourth through seventh ribs with mild left hemothorax at this time No pneumothorax Thoracic aorta pulmonary arteries appear intact Cirrhosis No liver splenic or renal laceration Significantly atrophic kidneys Abdominal aorta intact No free blood in the abdomen or pelvis Humerus X-Ray: Findings: No shoulder fracture or dislocation Shaft of the humerus intact Acute fractures left third, fourth, fifth, sixth, seventh, eighth ribs in the midaxillary line Impression: Acute fractures left third through eighth ribs in the mid axillary line with mild offset Chest X-Ray: Findings: Mild CHF Moderate enlargement cardiac contour, prominent vascular congestion and perihilar edema. Left rib deformities poorly visualized, please see the humerus report Impression: Mild CHF No pneumothorax Patient was signed out to me and I reviewed the entire case. Patient has 6 rib fractures on the left with a small hemothorax. Head CT CT of the abdomen and pelvis as well as CT of the cervical thoracic and lumbar spines were unremarkable. Patient was also found to be in supraventricular tachycardia with a heart rate in the 170s. EKG showed supraventricular tachycardia at a rate of 174. A proximal IV in the right antecubital fossa which was an 18-gauge was established. Patient was given multiple dosages of rapid push adenosine without benefit. Patient then received diltiazem 20 mg IV which has helped decrease the heart rate to approximately 110. Follow-up EKG is pending. Patient does have a history of dialysis dependent renal failure and was last dialyzed today. Potassium is 5.8. Patient received 1 amp of D50 IV, 5 units regular insulin IV, 1 amp of sodium bicarb IV, 1000 mg of calcium gluconate IV and 15 mg of nebulized albuterol. There is no trauma service at this hospital. Patient will require transfer to take care of her multiple rib fractures and small left-sided hemothorax seen on CT of the chest. Patient has no clinical evidence of a flail chest. Blood pressure has been stable throughout the entire ER stay. Patient received multiple dosages of medication here in the emergency room including Dilaudid and fentanyl IV for pain control. Critical care time spent in this patient excluding other billable procedures was 35 minutes.
--- NOTE | 2025-05-08 19:25 | EKG_ITS ---
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
[2025-05-08] MEDS: DIPHTH,PERTUSS(ACELL),TET VAC 0.5 ML SYR- ADULT IMi (19:35)
[2025-05-08] MEDS: CALCIUM GLUCONATE 10% INJ 1 GM/10 ML VIAL IV (19:50)
[2025-05-08] MEDS: INSULIN HUM REGULAR 1 UNIT/0.01 ML (PER UNIT) 5 UNIT IV (19:52)
[2025-05-08] MEDS: SODIUM BICARB INJ 8.4% 1 mEq/ML 50 ML VIAL 50 MEQ IV (19:55)
[2025-05-08] MEDS: DEXTROSE 50%-WATER INJ 50 ML SYRINGE IVP (19:58)
[2025-05-08] MEDS: SODIUM CHLORIDE RT SOL 0.9% 3 ML NEBU INH (20:00)
[2025-05-08] MEDS: ALBUTEROL RT 2.5 MG/0.5 ML NEBU 15 MG INH (20:00)
[2025-05-08] MEDS: ADENOSINE INJ 3 MG/ML VIAL 6 MG IVP ×2 (20:14→21:16)
[2025-05-08] MEDS: ADENOSINE INJ 3 MG/ML VIAL 12 MG IVP ×4 (20:20→21:03)
[2025-05-08] MEDS: fentaNYL CIT INJ 50 mCg/ML AMP 2ML 100 MCG IVP ×2 (20:32→22:34)
[2025-05-08] MEDS: DILTIAZEM INJ 5 MG/ML VIAL 5 ML 20 MG IV (21:24)
[2025-05-08 22:25] LABS: Anion Gap 14 (7-16); BUN/Creatinine Ratio 4 Ratio (12-20); Blood Urea Nitrogen 28 mg/dL (9-23); Calcium 8.4 mg/dL (8.3-10.6); Carbon Dioxide 27.1 mMol/L (20.0-31.0); Chloride 97 mMol/L (98-107); Creatinine (Component) 7.7 mg/dL (0.6-1.3); Estimated Creatinine Clearance 5.7 mL/min (>60); Glucose 212 mg/dL (74-106); Osmolality,Calculated 287 (275-295); Potassium 4.2 mMol/L (3.4-5.1); Sodium 138 mMol/L (136-145); eGFR 5 See Note
--- NOTE | 2025-05-08 23:49 | PD.EDADDENDU ---
Emergency Room Addendum Addendum Narrative: Patient was accepted to [facility] with a diagnosis of multiple left-sided rib fractures with small hemothorax, new onset atrial fibrillation with rapid ventricular response, dialysis dependent renal failure with hyperkalemia.
[2025-05-09 00:55] VITALS: BP 150/77; PULSE 127; RESP 17; TEMP 37.2; O2SAT 100
[2025-05-09] MEDS: fentaNYL CIT INJ 50 mCg/ML AMP 2ML 100 MCG IVP (00:55)
--- NOTE | 2025-05-09 00:57 | PC.NURSE ---
REPORT GIVEN TO GUZMAN CASTILLO AT [facility].
== END 2025-05-09 01:28 | disposition short-term general hospital (02) ==
PROVIDERS: Emergency Medicine; Emergency Provider Emergency Medicine; PCP Family Medicine
DX: R07.89 Other chest pain (principal); S22.42XA Multiple fractures of ribs, left side, initial encounter for closed fracture; K74.60 Unspecified cirrhosis of liver; I13.2 Hypertensive heart and chronic kidney disease with heart failure and with stage 5 chronic kidney disease, or end stage renal disease; N18.6 End stage renal disease; Z99.2 Dependence on renal dialysis; E78.5 Hyperlipidemia, unspecified; I47.10 Supraventricular tachycardia, unspecified; I50.9 Heart failure, unspecified; M48.061 Spinal stenosis, lumbar region without neurogenic claudication; M48.07 Spinal stenosis, lumbosacral region; S27.1XXA Traumatic hemothorax, initial encounter
CPT/HCPCS: 36415; 70450; 71045; 71260; 72125; 72128; 72131; 72170; 73060; 74177; 80048; 80053; 85025; 85610; 90471; 90715; 93005; 94644; 96374; 96375; 96376; 99284; A4649; J0153; J0612; J1171; J1815; J2405; J2470; J3010; J3490; Q9967